=== PATIENT | male | born 1965 | race Caucasian/White ===

== ENCOUNTER 2017-12-26 15:34 | Inpatient (IN) ==
--- NOTE | 2017-12-26 15:56 | ED ---
HPI General Chief Complaint: Stroke Alert Stated Complaint: Stroke Alert Time Seen by Provider: 12/26/17 15:39 Source: patient and EMS Mode of arrival: EMS Limitations: altered mental status (mild confusion) History of Present Illness Onset (ago): hour(s) (4-6) Timing confirmed by: other (mother found him like this. unknown onset.) Location: Reports right arm History of same: Yes Quality: Reports weak Relieving factors: none Exacerbating factors: none Context: Reports other (unknown) On Anticoagulants: No Associated symptoms: Reports denies other symptoms Treatments Prior to Arrival: Reports none Related Data Home Medications Medication Instructions Recorded Confirmed amlodipine 10 mg PO DAILY 12/26/17 12/26/17 hydrochlorothiazide 12.5 mg PO DAILY 12/26/17 12/26/17 lovastatin 20 mg PO DAILY 12/26/17 12/26/17 metformin 500 mg PO BID 12/26/17 12/26/17 metoprolol tartrate 50 mg PO BID 12/26/17 12/26/17 Allergies Allergy/AdvReac Type Severity Reaction Status Date / Time No Known Allergies Allergy Uncoded 04/20/14 16:30 Review of Systems ROS: all other systems reviewed are negative [facility] Medical History Medical History Hypercholesteremia (Acute) Cardiomyopathy (Chronic) Diabetes (Chronic) Hypertension (Chronic) Left basal ganglia embolic stroke (Resolved) Social History Social History Substance History: No History of Abuse Second Hand Smoke Exposure: No Smoking Status: Never smoker How Often Do You Have a Drink Containing Alcohol: Never Recent Travel in [facility] within the Last 8 Weeks: No Recent Out of Country Travel within the Last 8 Weeks: No Exam Const General: cooperative, healthy appearing and comfortable Orientation: alert, awake and oriented x3 HENMT Head: normal to inspection, normocephalic and atraumatic Eyes Alignment and Position: alignment normal Conjunctivae: conjunctivae normal Sclera: sclerae normal EOM: EOM intact bilaterally Neck Neck: normal visual inspection, no lymphadenopathy and no meningeal signs Chest Chest: normal inspection of the chest Resp Effort & Inspection: normal respiratory effort and able to speak in complete sentences Auscultation: clear to auscultation bilaterally Cardio Rate: regular rate Rhythm: regular rhythm Back/Spine/Pelvis Cervical Spine: cervical ROM normal Thoracic/Lumbar Spine: thoraco-lumbar ROM normal Skin General: no rashes or lesions noted, turgor normal and dry skin Neuro General: alert, awake, oriented x3 and CN's II-XI intact bilaterally Speech: abnormal speech (Seems to be having a little bit of trouble finding his words) Motor: strength abnormal (RUE) Extrem General: normal to inspection and full ROM Psych Appearance: grossly normal Mental Status: mental status grossly normal Speech and Movement: speech and movement normal Mood: congruent mood Affect: normal affect Attitude: cooperative Thought Process: normal Thought Content: normal Judgment: judgment good Course Consultations Consultation #1: Dr. Corrales, neurologist Time: 16:02 Consultation #2: Dr. Lechuga, radiologist Time: 16:09 Consultation #3: Dr. Rivers will admit Time: 16:58 Initial Documented Vital Signs Pulse Rate 114 H 12/26/17 15:40 Pulse Oximetry 93 L 12/26/17 15:40 Last Documented Vital Signs Temperature 98.1 F 12/26/17 16:12 Pulse Rate 116 H 12/26/17 16:12 Respiratory Rate 18 12/26/17 16:12 Blood Pressure 210/103 H 12/26/17 16:12 Pulse Oximetry 94 L 12/26/17 16:12 Critical Care Time Critical Care Time: Yes Total Critical Care Time: 40 Attestation: Time to perform other separately billable procedures was not included in the critical care time. My time did not include minutes spent treating any other patients simultaneously or on activities that did not directly contribute to the patient's treatment. The services I provided to this patient were to treat and/or prevent clinically significant deterioration due to acute neurological event I provided critical care services requiring my management, as noted below: Chart data review, documentation time, medication orders and management, vital sign assessments/reviewing monitor data, ordering and reviewing lab tests, ordering and interpreting/reviewing x-rays and diagnostic studies, care of the patient and discussion of the patient with the admitting physicians NIH Stroke Scale NIH Stroke Scale Level of Consciousness: 0-Alert Orientation Questions: 0-Answers both correct Responds to Commands: 0-Both tasks correct Gaze Eye Movement: 0-Horizontal movement WNL Visual Munoz: 0-No visual field defect Facial Movement: 0-Normal Motor Functions Arm LEFT: 0-No drift Motor Functions Arm RIGHT: 3-No effort against gravity Motor Functions Leg LEFT: 0-No drift Motor Functions Leg RIGHT: 0-No drift Limb Ataxia: 0-No ataxia Sensory Loss: 0-No sensory loss Best Language: 0-Normal Articulation: 1-Mild dysarthia Extinction or Inattention Sensory: 0-Absent Total: 4 Medical Decision Making MDM Narrative Medical decision making narrative: This patient presented to us as a stroke alert. Onset of symptoms was sometime between 9:30 AM and 11:30 AM. EVAC reports that his mother found him like this. Since the exact onset of his symptoms is unknown and since it has been at least 4 hours, this patient does not qualify for TPA. We did initiate a stroke alert for the purpose of rapid radiographic evaluation. The patient is now ready for admission. Medical Screen Exam Complete: Yes Emergency Medical Condition: Yes Differential Diagnosis Differential Diagnosis: Differential diagnosis includes but is not limited to TIA, CVA, brain tumor, migraine, anxiety Medical Records Medical records reviewed: Yes I reviewed the patient's medical records. Please see PMH for review of records. Old records were used to populate his PMH. Lab Data Lab results reviewed: Yes I reviewed the patient's lab results. Lab Results 12/26/17 12/26/17 12/26/17 Range/Units 15:41 15:45 15:45 POC Hgb (Calc) 15.6 (13.0-17.0) g/dL POC Hct 46.0 (39-51.0) % POC Sodium 138 (137-144) mmol/L POC Potassium 3.0 L (3.6-5.0) mmol/L POC Chloride 97 L (102-111) mmol/L POC BUN 11 (5-21) mg/dL POC Creatinine 0.9 (0.6-1.3) mg/dL POC Glucose 168 H 164 H (68-110) mg/dl Blood Type A Positive Antibody Screen Negative Imaging Data Radiologist's impression: Head CT 12/26/17 15:40 CONCLUSION: 1. No acute intracranial abnormality. Report was called by [Dr. Lechuga to at 1608 hours ] Head CTA 12/26/17 15:40 CONCLUSION: 1. Atherosclerotic disease without hemodynamically significant stenosis or filling defect to suggest thrombus. Results were called to Dr. Collier by Dr. Lechuga at 1630 hours ECG Data EKG Prior to Arrival: No Attestation: I personally reviewed and interpreted this ECG as follows: (EKG shows a sinus rhythm with a rate of 115. He has a right bundle branch block. Nonspecific STT wave changes.) Discharge Plan Discharge Disposition Patient Disposition: 30 Still Patient Discharge Details Diagnosis: Transient cerebral ischemia, Hypertension Physicians Team ED Provider: Payal Collier Primary Care Provider: Primary Care Elisa Carver Other Providers: Princess Corrales Rxs /Orders / Referrals /Forms Prescriptions: No Action metformin 500 mg Tablet 500 mg PO BID RF: 0 amlodipine 10 mg Tablet 10 mg PO DAILY RF: 0 metoprolol tartrate 50 mg Tablet 50 mg PO BID RF: 0 hydrochlorothiazide 12.5 mg Capsule 12.5 mg PO DAILY RF: 0 lovastatin 20 mg Tablet 20 mg PO DAILY RF: 0 Discharge Interventions Interventions: Vital Signs Last Done: 12/26/17 16:12 Status ED Status: Pending Admission
--- NOTE | 2017-12-26 16:11 | CT ---
EXAM DATE: 12/26/2017 3:48 PM EDT AGE/SEX: 52 years / Male INDICATIONS: Stroke alert. Right arm flaccid, right facial droop, confusion. CLINICAL DATA: This is the patient's initial encounter. Patient reports that signs and symptoms have been present for 1 day and indicates a pain score of Nonresponsive. MEDICAL/SURGICAL HISTORY: Non-responsive. Non-responsive. RADIATION DOSE: 49.17 CTDI (mGy) COMPARISON: No prior exams available for comparison. TECHNIQUE: CT of the head without contrast. Using automated exposure control and adjustment of the mA and/or kV according to patient size, radiation dose was kept as low as reasonably achievable to ob tain optimal diagnostic quality images. DICOM format image data is available electronically for revi ew and comparison. FINDINGS: Cerebrum: Small chronic lacunar infarction involving the left basal ganglia. The ventricles are norm al for age. No evidence of midline shift, mass lesion, hemorrhage or acute infarction. No extraaxia l fluid collections are seen. Posterior Fossa: The cerebellum and brainstem are intact. The 4th ventricle is midline. The cerebe llopontine angle is unremarkable. Extracranial: The visualized portion of the orbits is intact. Skull: The calvaria is intact. No evidence of skull fracture. CONCLUSION: 1. No acute intracranial abnormality. Report was called by [Dr. Lechuga to at 1608 hours ] Electronically signed by: Clay Lechuga MD 12/26/2017 4:09 PM EDT
[2017-12-26] MEDS ORDERED: Sod Chloride 0.9% Inj 1,000 ML IV.SIG SCH (16:15)
--- NOTE | 2017-12-26 16:34 | CT ---
EXAM DATE: 12/26/2017 3:48 PM EDT AGE/SEX: 52 years / Male INDICATIONS: Stroke alert; right arm weakness, right facial droop, confusion. CLINICAL DATA: This is the patient's initial encounter. Patient reports that signs and symptoms have been present for 1 day and indicates a pain score of Nonresponsive. MEDICAL/SURGICAL HISTORY: None. None. RADIATION DOSE: 28.78 CTDI (mGy) ; Combined studies COMPARISON: [facility] – [place] HEAD W/O CONTRAST, 12/26/2017. . TECHNIQUE: Volumetric scanning was performed using a multi-row detector CT scanner during bolus infu renetta of 84 ml Omnipaque 350 (iohexol) nonionic water-soluble contrast as a cumulative dose for multi ple exams. The data was post processed with a variety of visualization algorithms including full vo lume maximum intensity projection, multi-planar sliding thin slab reformation, curved planar reformat ion, and surface rendering techniques. Using automated exposure control and adjustment of the mA and /or kV according to patient size, radiation dose was kept as low as reasonably achievable to obtain o ptimal diagnostic quality images. DICOM format image data is available electronically for review and comparison. FINDINGS: There is excellent visualization of the major intracranial arteries out to the second-order branch ve ssels. Scattered atherosclerotic disease throughout the intracranial vessels most abundant within the intracavernous ICAs. No significant stenosis observed. No filling defects. Left vertebral artery is dominant. There is no evidence for aneurysm, vessel truncation or stenosis, and no evidence for vascu lar malformation. CONCLUSION: 1. Atherosclerotic disease without hemodynamically significant stenosis or filling defect to suggest thrombus. Results were called to Dr. Collier by Dr. Lechuga at 1630 hours Electronically signed by: Clay Lechuga MD 12/26/2017 4:33 PM EDT
--- NOTE | 2017-12-26 16:59 | CT ---
EXAM DATE: 12/26/2017 3:48 PM EDT AGE/SEX: 52 years / Male INDICATIONS: Stroke alert; right arm weakness, right facial droop, confusion. CLINICAL DATA: This is the patient's initial encounter. Patient reports that signs and symptoms have been present for 1 day and indicates a pain score of Nonresponsive. MEDICAL/SURGICAL HISTORY: Non-responsive. Non-responsive. RADIATION DOSE: 28.78 CTDI (mGy) ; Combined studies COMPARISON: No prior exams available for comparison. TECHNIQUE: Volumetric scanning was performed using a multirow detector CT scanner during bolus infus ion of 84 ml Omnipaque 350 (iohexol) nonionic water-soluble contrast as a cumulative dose for multip le exams. The data was postprocessed with a variety of visualization algorithms including full-volu me maximum intensity projection, multiplanar sliding thin-slab reformation, curved-planar reformation , and surface-rendering techniques. Using automated exposure control and adjustment of the mA and/or kV according to patient size, radiation dose was kept as low as reasonably achievable to obtain opti mal diagnostic quality images. DICOM format image data is available electronically for review and co mparison. FINDINGS: Aortic Arch: There is a three-vessel origin of the great vessels from the aorta. No evidence of ost ial narrowing Right Carotid: The common carotid artery is intact. The carotid bulb has a normal configuration wit hout ulceration or narrowing. The internal carotid artery lumen is smooth without stenosis. The ext ernal carotid artery is intact. Left Carotid: The common carotid artery is intact. The carotid bulb has a normal configuration with out ulceration or narrowing. The internal carotid artery lumen is smooth without stenosis. The exte rnal carotid artery is intact. Vertebrals: The left vertebral artery is dominant. No stenotic lesions are seen. Percent stenosis is calculated using the diameter of the stenotic region over the diameter of the nor mal distal internal carotid artery. CONCLUSION: 1. Patent carotid arteries bilaterally. 2. The left vertebral artery is dominant. Electronically signed by: Clay Lechuga MD 12/26/2017 4:58 PM EDT
--- NOTE | 2017-12-26 17:00 | XR ---
EXAM DATE: 12/26/2017 3:40 PM EDT AGE/SEX: 52 years / Male INDICATIONS: Stroke alert. CLINICAL DATA: This is the patient's initial encounter. Patient reports that signs and symptoms have been present for 1 day and indicates a pain score of Nonresponsive. MEDICAL/SURGICAL HISTORY: Non-responsive. Non-responsive. COMPARISON: [facility] – [place], CHEST SINGLE AP, 04/11/2013. . FINDINGS: A single AP view of the chest demonstrates the lungs to be symmetrically aerated without evidence of mass, infiltrate or effusion. Mild cardiomegaly without pulmonary vascular engorgement. Osseous struc tures are intact. CONCLUSION: Mild cardiomegaly. Clear lungs. Electronically signed by: Clay Lechuga MD 12/26/2017 4:58 PM EDT
[2017-12-26] MEDS: Sod Chloride 0.9% Inj 1,000 ML IV.CONT SCH (17:56)
[2017-12-26] MEDS ORDERED: Acetaminophen 325 MG Tablet PO PRN (18:01)
--- NOTE | 2017-12-26 18:09 | P.HPFP ---
History of Present Illness Primary Care Physician: No Primary Care Physician Chief Complaint: RUE weakness History of Present Illness: 52-year-old male with past medical history of diabetes, hypertension, hypercholesteremia, cardiomyopathy and prior stroke, presented to the emergency department hours after feeling that his right arm was heavy as well as his right leg. Patient states this morning was feeling well, around 9 AM was running some errands when he suddenly started feeling weakness on his right upper extremity and his right lower extremity. He returned home and was found by his mother around 11 AM. Mother in the room providing additional history, she does state she found her son on a recliner, unable to move his right arm, unable to walk. She also stated he was having hard time finding words and expressing himself. Patient has a history of a stroke on the same side in the past, he was placed on aspirin in the past however patient stopped taking aspirin. Patient complains of a headache, puffy and red eyes, inability to feel sensation in his right side. He denies chest pain or shortness of breath, he denies nausea or vomiting. PMH: Diabetes, cardiomyopathy, hypercholesteremia, hypertension, left basal ganglia embolic stroke Surgical history: None Social history: Lives with parents, chews 1 can of tobacco a day, had recently decreased from 3 cans of tobacco since age 16. Denies recreational drug use, occasional drinking but denies problems with alcohol. Allergies: NKA Medications: Amlodipine, hydrochlorothiazide, lovastatin, metformin, metoprolol tartrate - Diagnosis (1) Stroke (2) Hypertension (3) Hyperlipidemia (4) Diabetes mellitus (5) Hx of completed stroke (6) Obesities, morbid Inpatient Certification: I certify that the inpatient services were ordered in accordance with Medicare regulations governing the order. This includes certification that hospital inpatient services are reasonable and necessary and in the case of services not specified as inpatient-only under 42 CFR 419.22(n), that they are appropriately provided as inpatient services in accordance to with the 2-midnight benchmark under 43 CFR 412.3(e) Estimated Total Length of Stay (Days): 2 Plans for Post Hospital Care: Not yet determined Review of Systems Constitutional: Reports headache(s), Reports weakness, Denies fever(s) Eyes: Reports other (Puffy "red eyes"), Denies blurry vision, Denies change in vision, Denies double vision Ears, Nose, Mouth, and Throat: Denies dizziness Cardiovascular: Denies chest pain, Denies fainting, Denies shortness of breath Gastrointestinal: Denies nausea, Denies vomiting Musculoskeletal: Reports abnormal walking Neurologic: Reports abnormal speech, Reports abnormal walking, Reports headache( s), Reports sensory deficit, Reports unsteadiness, Reports weakness PMFSH - History History Provided By: Patient, Family Member - Medical History Medical History: Medical History (Last Reviewed 12/26/17 @ 23:47 by Michelle Espino MD, R1 ) Hypercholesteremia Cardiomyopathy Diabetes Hypertension Left basal ganglia embolic stroke - Tobacco History Second Hand Smoke Exposure: No Tobacco Use In Past 30 Days: No Smoking Status: Current every day smoker Tobacco Type: Smokeless Tobacco - Alcohol History How Often Do You Have a Drink Containing Alcohol: Never - Substance Use History Substance History: No History of Abuse - Travel History Recent Travel in the [place] Within the Last 8 Weeks: No Recent Travel Out of the Country Within the Last 8 Weeks: No - Immunization History Tetanus Immunization: >5 Years Medications and Allergies Active Medications: Active Medications Acetaminophen (Tylenol) 650 mg PO Q4H PRN PRN Reason: Temp > 100.4 Sodium Chloride (Ns Inj) 1,000 mls @ 70 mls/hr IV.CONT .[id number] [facility] Last Admin: 12/26/17 17:56 Dose: 70 mls/hr Sodium Chloride (Ns Inj) 1,000 mls @ 0 mls/hr IV.SIG BOLUS [facility] Ondansetron HCl (Zofran Inj) 4 mg IV.PUSH Q6H PRN PRN Reason: NAUSEA OR VOMITING Senna/Docusate Sodium (April-Colace) 1 tab PO BID [facility] Allergies Allergy/AdvReac Type Severity Reaction Status Date / Time No Known Allergies Allergy Uncoded 04/20/14 16:30 Home Medications Medication Instructions Recorded Confirmed Type amlodipine 10 mg PO DAILY 12/26/17 12/26/17 History hydrochlorothiazide 12.5 mg PO DAILY 12/26/17 12/26/17 History lovastatin 20 mg PO DAILY 12/26/17 12/26/17 History metformin 500 mg PO BID 12/26/17 12/26/17 History metoprolol tartrate 50 mg PO BID 12/26/17 12/26/17 History Exam Vital signs: Vital Signs 12/26/17 15:40 12/26/17 16:06 12/26/17 16:12 Temperature 98.1 F 98.1 F Pulse Rate 114 H 114 H 116 H Respiratory Rate 18 18 Blood Pressure 166/86 H 210/103 H Pulse Oximetry 95 94 L 94 L 12/26/17 17:30 Temperature Pulse Rate 124 H Respiratory Rate 18 Blood Pressure 210/91 H Pulse Oximetry Intake & Output 12/25/17 12/26/17 12/26/17 18:59 06:59 18:59 Weight 156 kg Narrative: General: Obese male, in no obvious distress during examination. HEENT: Normocephalic, atraumatic. injected conjunctiva. Gross hearing intact bilaterally. Neuro: Awake, alert and oriented to person, place, not oriented to time, thinks is 2015. Speech is somewhat clear, mumbling at times. Cranial nerve examination: pupils to be equal, round, and reactive to light. Extra-ocular movements are intact with normal convergence. Facial motor and sensory function are normal and symmetrical. Gross hearing is intact, bilaterally. Sensory examination diminished to light touch in both the upper and lower R extremities. Extremities: No obvious deformities. No clubbing. No peripheral edema. Strength 2/5 in RUE, 3/5 RLE. Lungs: Clear to auscultate bilaterally, nonlabored breathing on room air, no wheezing,rhonchi or crackles. No accessory muscle use. Heart: Regular rate and rhythm Abdomen: Soft, nontender. Positive bowel sounds Results - Labs Result diagrams: 12/26/17 19:16 12/26/17 15:45 Abnormal lab results 12/26/17 12/26/17 Range/Units 15:41 15:45 POC Potassium 3.0 L (3.6-5.0) mmol/L POC Chloride 97 L (102-111) mmol/L POC Glucose 168 H 164 H (68-110) mg/dl - Imaging Impressions Chest X-Ray 12/26/17 15:40 CONCLUSION: Mild cardiomegaly. Clear lungs. Head CT 12/26/17 15:40 CONCLUSION: 1. No acute intracranial abnormality. Report was called by [Dr. Lechuga to at 1608 hours ] Head CTA 12/26/17 15:40 CONCLUSION: 1. Atherosclerotic disease without hemodynamically significant stenosis or filling defect to suggest thrombus. Results were called to Dr. Collier by Dr. Lechuga at 1630 hours Neck CTA 12/26/17 15:40 CONCLUSION: 1. Patent carotid arteries bilaterally. 2. The left vertebral artery is dominant. Caprini VTE Risk Assessment Caprini VTE Risk Assessment: Moderate/High Risk (score >= 2) Caprini Risk Assessment Model: Point Value = 1 Point Value = 2 Point Value = 3 Point Value = 5 Age 41-60 Minor surgery BMI > 25 kg/m2 Swollen legs Varicose veins or History of unexplained or recurrent spontaneous Oral contraceptives or hormone replacement Sepsis (< 1 month) Serious lung disease, including pneumonia (< 1 month) Abnormal pulmonary function Acute myocardial infarction Congestive heart failure (< 1 month) History of inflammatory bowel disease Medical patient at bed rest Age 61-74 Arthroscopic surgery Major open surgery (> 45 min) Laparoscopic surgery (> 45 min) Malignancy Confined to bed (> 72 hours) Immobilizing plaster cast Central venous access Age >= 75 History of VTE Family history of VTE Factor V Leiden Prothrombin [id number] Lupus anticoagulant Anticardiolipin antibodies Elevated serum homocysteine Heparin-induced thrombocytopenia Other congenital or acquired thrombophilia Stroke (< 1 month) Elective arthroplasty Hip, pelvis, or leg fracture Acute spinal cord injury (< 1 month) Prophylaxis Regimen: Total Risk Factor Score Risk Level Prophylaxis Regimen 0-1 Low Early ambulation 2 Moderate Order ONE of the following: *Sequential Compression Device (SCD) *Heparin 5000 units SQ BID 3-4 Higher Order ONE of the following medications: *Heparin 5000 units SQ TID *Enoxaparin/Lovenox 40 mg SQ daily (WT < 150 kg, CrCl > 30 mL/min) *Enoxaparin/Lovenox 30 mg SQ daily (WT < 150 kg, CrCl > 10-29 mL/min) *Enoxaparin/Lovenox 30 mg SQ BID (WT < 150 kg, CrCl > 30 mL/min) AND/OR *Sequential Compression Device (SCD) 5 or more Highest Order ONE of the following medications: *Heparin 5000 units SQ TID (Preferred with Epidurals) *Enoxaparin/Lovenox 40 mg SQ daily (WT < 150 kg, CrCl > 30 mL/min) *Enoxaparin/Lovenox 30 mg SQ daily (WT < 150 kg, CrCl > 10-29 mL/min) *Enoxaparin/Lovenox 30 mg SQ BID (WT < 150 kg, CrCl > 30 mL/min) AND *Sequential Compression Device (SCD) Assessment and Plan - Assessment (1) Stroke Code(s): I63.9 - Cerebral infarction, unspecified Status: Acute (2) Hypertension Code(s): I10 - Essential (primary) hypertension Status: Chronic (3) Hyperlipidemia Code(s): E78.5 - Hyperlipidemia, unspecified Status: Chronic (4) Diabetes mellitus Code(s): E11.9 - Type 2 diabetes mellitus without complications Status: Acute (5) Hx of completed stroke Code(s): Z86.73 - Personal history of transient ischemic attack (TIA), and cerebral infarction without residual deficits Status: Chronic (6) Obesities, morbid Code(s): E66.01 - Morbid (severe) obesity due to excess calories Status: Acute - Assessment and Plan 52-year-old male presenting to the emergency department 6 hours after feeling his right leg and right arm feel heavy, as well as right lower extremity weakness and inability to walk. CT head with not acute bleed, CTA head showing atherosclerotic disease without stenosis, and CTA neck with patent carotid arteries bilaterally. Stroke - MRI of the brain w/o contrast - Aspirin 325mg q day plus Lovenox 40mg - Consult Neurology for evaluation - Normal saline at 70ml/ hr - Neurochecks every 4 - PT/OT/ST eval. - Labs: lipid profile, hemoglobin A1c, CBC, CMP, Coagulation panel - head of the bed flat except for eating, elevate 30 degrees Hypertension Permissive HTN Vasotec PRN for systolic blood pressure >220 mmHg or diastolic blood pressure > 120 mmHg Continue home medications" Amlodipine 10mg qday, HCTZ 12.5mg daily, metoprolol tartrate 50mg BID Hyperlipidemia Lipid panel Continue Lovastatin 20mg po daily Will consider increasing to 40mg PO daily Diabetes HbA1C pending Low insulin SS per stroke protocol Hold Metformin 500mg PO BID Obesity BMI 43 FEN/DVT Passed bedside swallow evaluation Cardiac diet NS at 70ml/hr DVT prophylaxis: Lovenox 40mg SQ , plus SCDs (1) Stroke Qualifiers: Laterality of affected vessel: left (2) Hypertension Qualifiers: Hypertension type: essential hypertension Qualified Code(s): I10 - Essential (primary) hypertension (4) Diabetes mellitus Qualifiers: Diabetes mellitus type: type 2 Diabetes mellitus complication status: with unspecified complications
[2017-12-26] MEDS ORDERED: Dextrose 50% in Water 50 ML Vial IV.PUSH PRN (18:29)
[2017-12-26 18:53] LABS: Alanine Aminotransferase 38 U/L (12-78); Albumin 3.1 g/dL (3.4-5.0); Anion Gap 13 meq/L (5-15); Aspartate Aminotransferase 26 U/L (15-37); Blood Urea Nitrogen 12 mg/dL (7-18); Calcium 8.9 mg/dL (8.5-10.1); Chloride 99 meq/L (98-107); Glomerular Filtration Rate 64 mL/min (>89); Glucose,Random 160 mg/dL (74-106); Sodium 135 meq/L (136-145)
[2017-12-26 18:57] LABS: Alkaline Phosphatase 86 U/L (45-117); Total Protein 8.1 g/dL (6.4-8.2)
[2017-12-26 18:58] LABS: Creatine Kinase 73 U/L (39-308)
[2017-12-26 19:25] LABS: Baso # (Auto) 0.1 th/mm3 (0.0-0.2); Baso % (Auto) 0.8 % (0.0-2.0); Eos % (Auto) 0.1 % (0.0-4.0); Hematocrit 42.6 % (39.0-51.0); Hemoglobin 15.1 gm/dL (13.0-17.0); Lymph # (Auto) 1.6 th/mm3 (1.0-4.8); Lymph % (Auto) 11.3 % (9.0-44.0); Mean Corpuscular HGB Conc 35.5 % (32.0-36.0); Mean Corpuscular Hemoglobin 29.8 pg (27.0-34.0); Mean Corpuscular Volume 83.9 fL (80.0-100.0); Mean Platelet Volume 8.4 fL (7.0-11.0); Mono # (Auto) 2.1 th/mm3 (0.0-0.9); Mono % (Auto) 14.9 % (0.0-8.0); Neut # (Auto) 10.1 th/mm3 (1.8-7.7); Neut % (Auto) 72.9 % (16.0-70.0); Platelet Count 223 th/mm3 (150-450); Red Blood Count 5.08 mil/mm3 (4.50-5.90); Red Cell Distribution Width 13.5 % (11.6-17.2); White Blood Count 13.9 th/mm3 (4.0-11.0)
[2017-12-26 19:54] LABS: Activated Partial Thrombo Time 27.8 sec (24.3-30.1); INR 1.1 Ratio
[2017-12-26] MEDS ORDERED: Enoxaparin Inj 40 MG/0.4 ML Syringe SQ SCH (20:00)
[2017-12-26 20:47] LABS: Chol/HDL Ratio 3.67 Ratio; HDL Cholesterol 40.3 mg/dL (40.0-60.0)
--- NOTE | 2017-12-26 20:54 | MR ---
EXAM DATE: 12/26/2017 7:48 PM EDT AGE/SEX: 52 years / Male INDICATIONS: Stroke. Right sided weakness for one day. CLINICAL DATA: This is the patient's initial encounter. Patient reports that signs and symptoms have been present for 1 day and indicates a pain score of 7/10. MEDICAL/SURGICAL HISTORY: Hypertension. Diabetes mellitus type II. None. [place] [facility] [place] W 3D, 12/26/2017. [facility] [place]/O [place]AST, 12/26/2017. . TECHNIQUE: Multiplanar, multisequence examination of the brain was performed without contrast. FINDINGS: There is abnormal area of diffusion manifested as bright signal on diffusion imaging and restriction in diffusion capacity involving the left posterior parietal lobe characteristic of acute infarction e xtending to the periventricular region. There is no hemorrhage or mass effect. There is sinusitis wit hin the left maxillary sinus chronic in nature. Old lacunar infarction is seen in the left basal gang kay. Slight periventricular white matter changes are seen nonspecific mostly consistent with chronic small vessel ischemic changes. CONCLUSION: Large area of acute infarction left posterior parietal lobe extending into the periventricular region s without hemorrhage or mass effect. Findings were discussed with the patient's nurse Giselle Damian at th e time of this dictation on 12/26/2017 at 8:45 PM. Electronically signed by: Booker Glover MD 12/26/2017 8:53 PM EDT
[2017-12-26] MEDS: Insulin NovoLOG Aspart Correctional Sugar Inj SQ SCH (21:36)
[2017-12-26] MEDS: Senna/Docusate Sodium 8.6/50 MG Tablet PO SCH (21:38)
[2017-12-27 04:34] LABS: Amphetamine Screen,Urine Neg (Neg); Barbiturate Screen,Urine Neg (Neg); Cannabinoid Screen,Urine Neg (Neg); Cocaine Screen,Urine Neg (Neg)
[2017-12-27 04:35] LABS: Opiate Screen,Urine Neg (Neg)
[2017-12-27 04:45] LABS: Bilirubin,Urine Negative (Negative); Clarity,Urine Clear (Clear); Color,Urine Yellow (Yellw/Straw); Glucose,Urine (UA) 50 mg/dL (Negative); Leukocyte Esterase,Urine Negative (Negative); Mucus,Urine Few /lpf (Occasional); Nitrite,Urine Negative (Negative); Specific Gravity,Urine 1.017 (1.002-1.035)
[2017-12-27] MEDS: Sod Chloride 0.9% Inj 1,000 ML IV.CONT SCH ×2 (05:11→21:04)
[2017-12-27 06:28] LABS: Baso # (Auto) 0.1 th/mm3 (0.0-0.2); Baso % (Auto) 0.5 % (0.0-2.0); Eos % (Auto) 0.2 % (0.0-4.0); Hematocrit 44.8 % (39.0-51.0); Hemoglobin 15.8 gm/dL (13.0-17.0); Lymph # (Auto) 1.4 th/mm3 (1.0-4.8); Lymph % (Auto) 10.2 % (9.0-44.0); Mean Corpuscular HGB Conc 35.2 % (32.0-36.0); Mean Corpuscular Hemoglobin 29.9 pg (27.0-34.0); Mean Platelet Volume 8.9 fL (7.0-11.0); Mono # (Auto) 2.5 th/mm3 (0.0-0.9); Mono % (Auto) 18.1 % (0.0-8.0); Platelet Count 208 th/mm3 (150-450); Red Blood Count 5.27 mil/mm3 (4.50-5.90); Red Cell Distribution Width 14.2 % (11.6-17.2); White Blood Count 14.1 th/mm3 (4.0-11.0)
[2017-12-27 06:47] LABS: Alanine Aminotransferase 32 U/L (12-78); Albumin 2.8 g/dL (3.4-5.0); Anion Gap 12 meq/L (5-15); Aspartate Aminotransferase 24 U/L (15-37); Blood Urea Nitrogen 10 mg/dL (7-18); Calcium 8.4 mg/dL (8.5-10.1); Carbon Dioxide 24.5 meq/L (21.0-32.0); Chloride 103 meq/L (98-107); Cholesterol 145 mg/dL (120-200); Glomerular Filtration Rate Greater Than 89 mL/min (>89); Glucose,Random 155 mg/dL (74-106); Potassium 3.2 meq/L (3.5-5.1); Sodium 139 meq/L (136-145); Triglycerides 133 mg/dL (42-150)
[2017-12-27 06:49] LABS: Alkaline Phosphatase 89 U/L (45-117); Chol/HDL Ratio 4.76 Ratio; HDL Cholesterol 30.4 mg/dL (40.0-60.0); LDL Cholesterol,Calculated 88 mg/dL (0-99); Total Protein 7.6 g/dL (6.4-8.2)
--- NOTE | 2017-12-27 08:09 | P.CONCA ---
History of Present Illness Service: cardiology Consult date: 12/27/17 Reason for Consult: CVA Primary Care Provider: No Primary Care Physician Chief Complaint: RUE weakness History of Present Illness: 52 yo obese male tobacco user with no HTN, HLD, DMII and reported history of prior stroke and cardiomyopathy who presents with sudden onset unilateral leg and arm weakness and dysarthria. Patient lives at home and provides limited history at time of exam. This morning he feel better having regained strength to affected limbs but still doesn't "feel right". He denies chest pain, sob, edema or palpitations. His BP was rather high in the ED; SBP as high as 210, now improving. Labs reveal hypokalemia, troponin x 2 negative. CTA shows atherosclerosis with patent carotid arteries. Head imaging does not reveal any acute abnormality. Review of Systems All other systems reviewed negative except as stated in [facility] - History History Provided By: Patient, Family Member - Medical History Medical History: Medical History (Last Reviewed 12/27/17 @ 08:52 by Bailey Patel, [employer]) Hypercholesteremia Cardiomyopathy Diabetes Hypertension Left basal ganglia embolic stroke - Tobacco History Second Hand Smoke Exposure: No Tobacco Use In Past 30 Days: No Smoking Status: Current every day smoker Tobacco Type: Smokeless Tobacco - Alcohol History How Often Do You Have a Drink Containing Alcohol: Never - Substance Use History Substance History: No History of Abuse - Travel History Recent Travel in the [place] Within the Last 8 Weeks: No Recent Travel Out of the Country Within the Last 8 Weeks: No - Immunization History Tetanus Immunization: >5 Years Medications and Allergies Allergies Allergy/AdvReac Type Severity Reaction Status Date / Time No Known Allergies Allergy Uncoded 04/20/14 16:30 Home Medications Medication Instructions Recorded Confirmed Type amlodipine 10 mg PO DAILY 12/26/17 12/26/17 History hydrochlorothiazide 12.5 mg PO DAILY 12/26/17 12/26/17 History lovastatin 20 mg PO DAILY 12/26/17 12/26/17 History metformin 500 mg PO BID 12/26/17 12/26/17 History metoprolol tartrate 50 mg PO BID 12/26/17 12/26/17 History Active Medications: Active Medications Acetaminophen (Tylenol) 650 mg PO Q4H PRN PRN Reason: Temp > 100.4 Amlodipine Besylate (Norvasc) 10 mg PO DAILY [facility] Aspirin (Aspirin) 325 mg PO DAILY [facility] Dextrose (D50w Vial) 50 ml IV.PUSH UNSCH PRN PRN Reason: per Hypoglycemic Protocol Enalaprilat (Vasotec Inj) 1.25 mg IV.PUSH Q6H PRN PRN Reason: BLOOD PRESSURE MANAGEMENT Enoxaparin Sodium (Lovenox Inj) 40 mg SQ Q24H [facility] Last Admin: 12/26/17 21:38 Dose: 40 mg Glucagon (Glucagon Inj) 1 mg OTHER UNSCH PRN PRN Reason: per Hypoglycemic Protocol Hydrochlorothiazide (Microzide) 12.5 mg PO DAILY [facility] Sodium Chloride (Ns Inj) 1,000 mls @ 70 mls/hr IV.CONT .[id number] [facility] Last Admin: 12/27/17 05:11 Dose: Not Given Sodium Chloride (Ns Inj) 1,000 mls @ 0 mls/hr IV.SIG BOLUS [facility] Insulin Aspart (Novolog Insulin Correctional Sugar Inj) 0 unit SQ ACHS [facility]; Protocol Last Admin: 12/26/17 21:36 Dose: Not Given Metoprolol Tartrate (Lopressor) 50 mg PO BID [facility] Ondansetron HCl (Zofran Inj) 4 mg IV.PUSH Q6H PRN PRN Reason: NAUSEA OR VOMITING Pravastatin Sodium (Pravachol) 40 mg PO HS [facility] Last Admin: 12/26/17 21:38 Dose: 40 mg Pravastatin Sodium (Pravachol) 20 mg PO DAILY [facility] Senna/Docusate Sodium (April-Colace) 1 tab PO BID [facility] Last Admin: 12/26/17 21:38 Dose: 1 tab Exam Vital signs: Vital Signs 12/26/17 15:40 12/26/17 16:06 12/26/17 16:12 Temperature 98.1 F 98.1 F Pulse Rate 114 H 114 H 116 H Respiratory Rate 18 18 Blood Pressure 166/86 H 210/103 H Pulse Oximetry 95 94 L 94 L 12/26/17 17:30 12/26/17 18:29 12/26/17 20:00 Temperature 97.8 F 98 F Pulse Rate 124 H 110 H 107 H Respiratory Rate 18 20 20 Blood Pressure 210/91 H 182/100 H 185/115 H Pulse Oximetry 96 96 12/26/17 20:27 12/27/17 00:00 12/27/17 07:22 Temperature 98.3 F Pulse Rate 113 H 121 H Respiratory Rate 20 Blood Pressure 178/93 H Pulse Oximetry 96 92 L Intake & Output 12/26/17 12/27/17 12/27/17 18:59 06:59 18:59 Output Total 600 / 600 Balance -600 / -600 Weight 156 kg 156 kg Output: Urine 600 / 600 Other: Date of Last Bowel Movement 12/26/17 Narrative: GENERAL: obese male SKIN: Warm and dry. HEAD: Normocephalic. EYES: No scleral icterus. No injection or drainage. NECK: Supple, trachea midline. No JVD or lymphadenopathy. CARDIOVASCULAR: tachycardic, regular rhythm without murmurs, gallops, or rubs. RESPIRATORY: Breath sounds equal bilaterally. No accessory muscle use. GASTROINTESTINAL: Abdomen soft, non-tender, nondistended. MUSCULOSKELETAL: No cyanosis, or edema. Results 12/27/17 05:29 12/27/17 05:29 Cardiac Enzymes 12/26/17 12/26/17 12/26/17 Range/Units 15:45 15:45 21:05 AST 26 (15-37) U/L Troponin I Less than 0.02 L Cancelled 0.02 (0.02-0.05) ng/mL 12/27/17 Range/Units 05:29 AST 24 (15-37) U/L Troponin I (0.02-0.05) ng/mL Coagulation 12/26/17 Range/Units 19:16 PT 11.0 (9.8-11.6) sec APTT 27.8 (24.3-30.1) sec Lipids 12/26/17 12/27/17 Range/Units 15:45 05:29 Triglycerides 113 133 (42-150) mg/dL Cholesterol 148 145 (120-200) mg/dL HDL Cholesterol 40.3 30.4 L (40.0-60.0) mg/dL Cholesterol/HDL Ratio 3.67 4.76 Ratio CBC 12/26/17 12/27/17 Range/Units 19:16 05:29 WBC 13.9 H 14.1 H (4.0-11.0) th/mm3 RBC 5.08 5.27 (4.50-5.90) mil/mm3 Hgb 15.1 15.8 (13.0-17.0) gm/dL Hct 42.6 44.8 (39.0-51.0) % Plt Count 223 208 (150-450) th/mm3 Neut # (Auto) 10.1 H 10.0 H (1.8-7.7) th/mm3 Lymph # (Auto) 1.6 1.4 (1.0-4.8) th/mm3 [place] # (Auto) 2.1 H 2.5 H (0.0-0.9) th/mm3 Eos # (Auto) 0.0 0.0 (0.0-0.4) th/mm3 Baso # (Auto) 0.1 0.1 (0.0-0.2) th/mm3 Comprehensive Metabolic Panel 12/26/17 12/27/17 Range/Units 15:45 05:29 Sodium 135 L 139 (136-145) meq/L Potassium 3.0 L 3.2 L (3.5-5.1) meq/L Chloride 99 103 (98-107) meq/L Carbon Dioxide 23.0 24.5 (21.0-32.0) meq/L BUN 12 10 (7-18) mg/dL Creatinine 1.20 0.88 (0.60-1.30) mg/dL Calcium 8.9 8.4 L (8.5-10.1) mg/dL AST 26 24 (15-37) U/L ALT 38 32 (12-78) U/L Alkaline Phosphatase 86 89 (45-117) U/L Total Protein 8.1 7.6 (6.4-8.2) g/dL Albumin 3.1 L 2.8 L (3.4-5.0) g/dL Intake and Output 12/26/17 12/27/17 12/27/17 22:59 06:59 14:59 Output Total 600 / 600 Balance -600 / -600 Output: Urine 600 / 600 Other: Date of Last Bowel Movement 12/26/17 12/26/17 Weight 156 kg 156 kg - Imaging and Cardiology Imaging: Impressions Head MRI 12/26/17 00:00 CONCLUSION: Large area of acute infarction left posterior parietal lobe extending into the periventricular regions without hemorrhage or mass effect. Findings were discussed with the patient's nurse Giselle Damian at the time of this dictation on at 8:45 PM. Chest X-Ray 12/26/17 15:40 CONCLUSION: Mild cardiomegaly. Clear lungs. Head CT 12/26/17 15:40 CONCLUSION: 1. No acute intracranial abnormality. Report was called by [Dr. Lechuga to at 1608 hours ] Head CTA 12/26/17 15:40 CONCLUSION: 1. Atherosclerotic disease without hemodynamically significant stenosis or filling defect to suggest thrombus. Results were called to Dr. Collier by Dr. Lechuga at 1630 hours Neck CTA 12/26/17 15:40 CONCLUSION: 1. Patent carotid arteries bilaterally. 2. The left vertebral artery is dominant. Assessment and Plan - Assessment (1) Hypertension Code(s): I10 - Essential (primary) hypertension Status: Chronic (2) Stroke Code(s): I63.9 - Cerebral infarction, unspecified Status: Acute - Plan 52 yo obese male tobacco user with no HTN, HLD, DMII and reported history of prior stroke and cardiomyopathy who presents with sudden onset unilateral leg and arm weakness and dysarthria. Patient lives at home and provides limited history at time of exam. This morning he feel better having regained strength to affected limbs but still doesn't "feel right". He denies chest pain, sob, edema or palpitations. His BP was rather high in the ED; SBP as high as 210, now improving. Labs reveal hypokalemia. CTA shows atherosclerosis with patent carotid arteries. Head imaging does not reveal any acute abnormality. CVA- stroke-like symptoms have improved. evaluate with 2D echo reported reoccurrence of symptoms and noncompliance with asa; consider WINIFRED? cont asa 325mg, lovenox, statin HTN urgency- improving with current medical regimen. sinus tachycardia - Attending Attestation recurrent CVA - prior event RLE weakness. Now with left sided weakness. MRI - Large area of acute infarction left posterior parietal lobe extending into the periventricular regions without hemorrhage or mass effect suspect cardioembolic event telemetry monitoring WINIFRED friday. NPO p [place] friday if WINIFRED negative, probable loop recorder medical mgt per neurology (1) Hypertension Qualifiers: Hypertension type: essential hypertension Qualified Code(s): I10 - Essential (primary) hypertension (2) Stroke Qualifiers: Laterality of affected vessel: left
[2017-12-27] MEDS: amLODIPine 10 MG Tablet PO SCH (09:14)
[2017-12-27] MEDS: Senna/Docusate Sodium 8.6/50 MG Tablet PO SCH ×2 (09:14→21:20)
[2017-12-27] MEDS: Aspirin 325 MG Tablet PO SCH (09:15)
[2017-12-27] MEDS: Metoprolol Tartrate 50 MG Tablet PO SCH ×2 (09:15→21:20)
[2017-12-27] MEDS: Insulin NovoLOG Aspart Correctional Sugar Inj SQ SCH ×4 (09:22→21:20)
--- NOTE | 2017-12-27 12:04 | P.HPFP ---
History of Present Illness Primary Care Physician: No Primary Care Physician Chief Complaint: RUE weakness History of Present Illness: 52-year-old male seen and examined during rounds with resident physicians this morning. He is sitting up in bed and eating breakfast upon arrival with no complication. He denies any symptoms at this time, stating that he has "some weakness" in his right arm but it is mild. He denies any chest pain or palpitations. He denies any headache or vision changes. He denies any difficulty talking or swallowing. He denies any peripheral pain. However, further discussion with him shows that he is unable to move his right arm and he has some weakness of his right leg. When questioned further, he does state that he has some paresthesias in his right upper extremity and right lower extremity as well. He seems somewhat confused, stating that it is 2016 and does not know who the president is. In summary, this is a 52-year-old male who presented to [place] with chief complaint of right arm heaviness and difficulty with walking. On the day prior to presentation, he states that he developed heaviness and weakness of the right upper and lower extremity around 9 AM. His mother found him around 11 AM in a recliner and he was unable to move his right side and so [facility] was called for suspected stroke. He has a history of a stroke affecting his right side in the past and was placed on aspirin therapy, however he states that he has not been taking the aspirin for approximately 1 year. He endorses compliance with his other medications but has not been on an aspirin for some time. - Diagnosis (1) Stroke (2) Hypertension (3) Hyperlipidemia (4) Diabetes mellitus (5) Hx of completed stroke (6) Obesities, morbid Inpatient Certification: I certify that the inpatient services were ordered in accordance with Medicare regulations governing the order. This includes certification that hospital inpatient services are reasonable and necessary and in the case of services not specified as inpatient-only under 42 CFR 419.22(n), that they are appropriately provided as inpatient services in accordance to with the 2-midnight benchmark under 43 CFR 412.3(e) Estimated Total Length of Stay (Days): 2 Plans for Post Hospital Care: Not yet determined PMF - History History Provided By: Patient, Family Member - Medical History Medical History: Medical History (Last Reviewed 12/27/17 @ 11:15 by Bhumika Chris) Hypercholesteremia Cardiomyopathy Diabetes Hypertension Left basal ganglia embolic stroke - Tobacco History Second Hand Smoke Exposure: No Tobacco Use In Past 30 Days: No Smoking Status: Current every day smoker Tobacco Type: Smokeless Tobacco - Alcohol History How Often Do You Have a Drink Containing Alcohol: Never - Substance Use History Substance History: No History of Abuse - Travel History Recent Travel in the [place] Within the Last 8 Weeks: No Recent Travel Out of the Country Within the Last 8 Weeks: No - Immunization History Tetanus Immunization: >5 Years Medications and Allergies Active Medications: Active Medications Acetaminophen (Tylenol) 650 mg PO Q4H PRN PRN Reason: Temp > 100.4 Amlodipine Besylate (Norvasc) 10 mg PO DAILY [facility] Last Admin: 12/27/17 09:14 Dose: 10 mg Aspirin (Aspirin) 325 mg PO DAILY [facility] Last Admin: 12/27/17 09:15 Dose: 325 mg Dextrose (D50w Vial) 50 ml IV.PUSH UNSCH PRN PRN Reason: per Hypoglycemic Protocol Enalaprilat (Vasotec Inj) 1.25 mg IV.PUSH Q6H PRN PRN Reason: BLOOD PRESSURE MANAGEMENT Glucagon (Glucagon Inj) 1 mg OTHER UNSCH PRN PRN Reason: per Hypoglycemic Protocol Heparin Sodium (Porcine) (Heparin Inj) 5,000 units SQ Q8HR [facility] Hydrochlorothiazide (Microzide) 12.5 mg PO DAILY [facility] Last Admin: 12/27/17 09:14 Dose: 12.5 mg Sodium Chloride (Ns Inj) 1,000 mls @ 70 mls/hr IV.CONT .[id number] [facility] Last Infusion: 12/27/17 10:27 Dose: 70 mls/hr Sodium Chloride (Ns Inj) 1,000 mls @ 0 mls/hr IV.SIG BOLUS [facility] Insulin Aspart (Novolog Insulin Correctional Sugar Inj) 0 unit SQ ACHS [facility]; Protocol Last Admin: 12/27/17 09:22 Dose: 1 unit Metoprolol Tartrate (Lopressor) 50 mg PO BID [facility] Last Admin: 12/27/17 09:15 Dose: 50 mg Ondansetron HCl (Zofran Inj) 4 mg IV.PUSH Q6H PRN PRN Reason: NAUSEA OR VOMITING Pravastatin Sodium (Pravachol) 40 mg PO HS [facility] Last Admin: 12/26/17 21:38 Dose: 40 mg Pravastatin Sodium (Pravachol) 20 mg PO DAILY [facility] Last Admin: 12/27/17 09:15 Dose: 20 mg Senna/Docusate Sodium (April-Colace) 1 tab PO BID [facility] Last Admin: 12/27/17 09:14 Dose: 1 tab Allergies Allergy/AdvReac Type Severity Reaction Status Date / Time No Known Allergies Allergy Uncoded 04/20/14 16:30 Home Medications Medication Instructions Recorded Confirmed Type amlodipine 10 mg PO DAILY 12/26/17 12/26/17 History hydrochlorothiazide 12.5 mg PO DAILY 12/26/17 12/26/17 History lovastatin 20 mg PO DAILY 12/26/17 12/26/17 History metformin 500 mg PO BID 12/26/17 12/26/17 History metoprolol tartrate 50 mg PO BID 12/26/17 12/26/17 History Exam Vital signs: Vital Signs 12/26/17 15:40 12/26/17 16:06 12/26/17 16:12 Temperature 98.1 F 98.1 F Pulse Rate 114 H 114 H 116 H Respiratory Rate 18 18 Blood Pressure 166/86 H 210/103 H Pulse Oximetry 95 94 L 94 L 12/26/17 17:30 12/26/17 18:29 12/26/17 20:00 Temperature 97.8 F 98 F Pulse Rate 124 H 110 H 107 H Respiratory Rate 18 20 20 Blood Pressure 210/91 H 182/100 H 185/115 H Pulse Oximetry 96 96 12/26/17 20:27 12/27/17 00:00 12/27/17 07:22 Temperature 98.3 F Pulse Rate 113 H 121 H Respiratory Rate 20 Blood Pressure 178/93 H Pulse Oximetry 96 92 L 12/27/17 08:00 12/27/17 11:22 Temperature 98.9 F Pulse Rate 119 H Respiratory Rate 18 Blood Pressure 194/119 H Pulse Oximetry 94 L 95 Intake & Output 12/26/17 12/27/17 12/27/17 18:59 06:59 18:59 Output Total 600 / 600 Balance -600 / -600 Weight 156 kg 156 kg Output: Urine 600 / 600 Other: Date of Last Bowel Movement 12/26/17 Narrative: General:Obese male, sitting up in bed in no obvious distress. Somewhat confused during examination. HEENT: Normocephalic, atraumatic. Extraocular muscles intact.. Neuro: Awake, alert and oriented to person and place only. Seems somewhat confused, unsure if this is his baseline. Unable to move right upper extremity and has notable weakness of his right lower extremity, able to flex at the waist but not extend at the knee. Sensation is diminished in the right upper and lower extremity. CV: Tachycardic with regular rhythm, 2/6 systolic murmur Lungs: Clear to auscultate bilaterally, nonlabored breathing on room air, no wheezing,rhonchi or crackles. No accessory muscle use. Abdomen: Obese but soft, nontender. Positive bowel sound Results - Labs Result diagrams: 12/27/17 05:29 12/27/17 05:29 Abnormal lab results 12/26/17 12/26/17 12/26/17 Range/Units 15:41 15:45 15:45 WBC (4.0-11.0) th/mm3 Neut % (Auto) (16.0-70.0) % [place] % (Auto) (0.0-8.0) % Neut # (Auto) (1.8-7.7) th/mm3 [place] # (Auto) (0.0-0.9) th/mm3 Fibrinogen (227-377) mg/dL Sodium 135 L (136-145) meq/L POC Potassium 3.0 L (3.6-5.0) mmol/L Potassium 3.0 L (3.5-5.1) meq/L POC Chloride 97 L (102-111) mmol/L Estimated GFR 64 L (>89) mL/min POC Glucose 168 H 164 H (68-110) mg/dl Random Glucose 160 H (74-106) mg/dL Calcium (8.5-10.1) mg/dL Troponin I Less than 0.02 L (0.02-0.05) ng/mL Albumin 3.1 L (3.4-5.0) g/dL HDL Cholesterol (40.0-60.0) mg/dL Urine Ketones (Negative) mg/dL Urine Occult Blood (Negative) Urine RBC (0-3) /hpf Urine Mucus (Occasional) /lpf 12/26/17 12/26/17 12/26/17 Range/Units 18:48 19:16 19:16 WBC 13.9 H (4.0-11.0) th/mm3 Neut % (Auto) 72.9 H (16.0-70.0) % [place] % (Auto) 14.9 H (0.0-8.0) % Neut # (Auto) 10.1 H (1.8-7.7) th/mm3 [place] # (Auto) 2.1 H (0.0-0.9) th/mm3 Fibrinogen 443 H (227-377) mg/dL Sodium (136-145) meq/L POC Potassium (3.6-5.0) mmol/L Potassium (3.5-5.1) meq/L POC Chloride (102-111) mmol/L Estimated GFR (>89) mL/min POC Glucose 155 H (68-110) mg/dl Random Glucose (74-106) mg/dL Calcium (8.5-10.1) mg/dL Troponin I (0.02-0.05) ng/mL Albumin (3.4-5.0) g/dL HDL Cholesterol (40.0-60.0) mg/dL Urine Ketones (Negative) mg/dL Urine Occult Blood (Negative) Urine RBC (0-3) /hpf Urine Mucus (Occasional) /lpf 12/26/17 12/27/17 12/27/17 Range/Units 21:32 04:00 05:29 WBC 14.1 H (4.0-11.0) th/mm3 Neut % (Auto) 71.0 H (16.0-70.0) % [place] % (Auto) 18.1 H (0.0-8.0) % Neut # (Auto) 10.0 H (1.8-7.7) th/mm3 [place] # (Auto) 2.5 H (0.0-0.9) th/mm3 Fibrinogen (227-377) mg/dL Sodium (136-145) meq/L POC Potassium (3.6-5.0) mmol/L Potassium (3.5-5.1) meq/L POC Chloride (102-111) mmol/L Estimated GFR (>89) mL/min POC Glucose 122 H (68-110) mg/dl Random Glucose (74-106) mg/dL Calcium (8.5-10.1) mg/dL Troponin I (0.02-0.05) ng/mL Albumin (3.4-5.0) g/dL HDL Cholesterol (40.0-60.0) mg/dL Urine Ketones Trace H (Negative) mg/dL Urine Occult Blood Moderate H (Negative) Urine RBC 143 H (0-3) /hpf Urine Mucus Few H (Occasional) /lpf 12/27/17 12/27/17 Range/Units 05:29 09:19 WBC (4.0-11.0) th/mm3 Neut % (Auto) (16.0-70.0) % [place] % (Auto) (0.0-8.0) % Neut # (Auto) (1.8-7.7) th/mm3 [place] # (Auto) (0.0-0.9) th/mm3 Fibrinogen (227-377) mg/dL Sodium (136-145) meq/L POC Potassium (3.6-5.0) mmol/L Potassium 3.2 L (3.5-5.1) meq/L POC Chloride (102-111) mmol/L Estimated GFR (>89) mL/min POC Glucose 189 H (68-110) mg/dl Random Glucose 155 H (74-106) mg/dL Calcium 8.4 L (8.5-10.1) mg/dL Troponin I (0.02-0.05) ng/mL Albumin 2.8 L (3.4-5.0) g/dL HDL Cholesterol 30.4 L (40.0-60.0) mg/dL Urine Ketones (Negative) mg/dL Urine Occult Blood (Negative) Urine RBC (0-3) /hpf Urine Mucus (Occasional) /lpf Short CBC 12/26/17 12/27/17 Range/Units 19:16 05:29 WBC 13.9 H 14.1 H (4.0-11.0) th/mm3 Hgb 15.1 15.8 (13.0-17.0) gm/dL Hct 42.6 44.8 (39.0-51.0) % Plt Count 223 208 (150-450) th/mm3 BMP 12/26/17 12/27/17 15:45 05:29 Sodium 135 L 139 Potassium 3.0 L 3.2 L Chloride 99 103 Carbon Dioxide 23.0 24.5 BUN 12 10 Creatinine 1.20 0.88 Calcium 8.9 8.4 L Cardiac Enzymes 12/26/17 12/26/17 12/26/17 Range/Units 15:45 15:45 21:05 Total Creatine Kinase 73 Cancelled (39-308) U/L Troponin I Less than 0.02 L Cancelled 0.02 (0.02-0.05) ng/mL Liver Function 12/26/17 12/27/17 Range/Units 15:45 05:29 Total Bilirubin 0.5 0.7 (0.2-1.0) mg/dL AST 26 24 (15-37) U/L ALT 38 32 (12-78) U/L Alkaline Phosphatase 86 89 (45-117) U/L Albumin 3.1 L 2.8 L (3.4-5.0) g/dL Urine 12/27/17 Range/Units 04:00 Urine Color Yellow (Yellw/Straw) Urine Clarity Clear (Clear) Urine pH 7.0 (5.0-8.5) Ur Specific [place] 1.017 (1.002-1.035) Urine Protein 500 or greater (Neg-Trace) mg/dL Urine Glucose (UA) 50 (Negative) mg/dL - Imaging Impressions Head MRI 12/26/17 00:00 CONCLUSION: Large area of acute infarction left posterior parietal lobe extending into the periventricular regions without hemorrhage or mass effect. Findings were discussed with the patient's nurse Giselle Damian at the time of this dictation on at 8:45 PM. Chest X-Ray 12/26/17 15:40 CONCLUSION: Mild cardiomegaly. Clear lungs. Head CT 12/26/17 15:40 CONCLUSION: 1. No acute intracranial abnormality. Report was called by [Dr. Lechuga to at 1608 hours ] Head CTA 12/26/17 15:40 CONCLUSION: 1. Atherosclerotic disease without hemodynamically significant stenosis or filling defect to suggest thrombus. Results were called to Dr. Collier by Dr. Lechuga at 1630 hours Neck CTA 12/26/17 15:40 CONCLUSION: 1. Patent carotid arteries bilaterally. 2. The left vertebral artery is dominant. Caprini VTE Risk Assessment Caprini VTE Risk Assessment: Moderate/High Risk (score >= 2) Caprini Risk Assessment Model: Point Value = 1 Point Value = 2 Point Value = 3 Point Value = 5 Age 41-60 Minor surgery BMI > 25 kg/m2 Swollen legs Varicose veins or History of unexplained or recurrent spontaneous Oral contraceptives or hormone replacement Sepsis (< 1 month) Serious lung disease, including pneumonia (< 1 month) Abnormal pulmonary function Acute myocardial infarction Congestive heart failure (< 1 month) History of inflammatory bowel disease Medical patient at bed rest Age 61-74 Arthroscopic surgery Major open surgery (> 45 min) Laparoscopic surgery (> 45 min) Malignancy Confined to bed (> 72 hours) Immobilizing plaster cast Central venous access Age >= 75 History of VTE Family history of VTE Factor V Leiden Prothrombin [id number] Lupus anticoagulant Anticardiolipin antibodies Elevated serum homocysteine Heparin-induced thrombocytopenia Other congenital or acquired thrombophilia Stroke (< 1 month) Elective arthroplasty Hip, pelvis, or leg fracture Acute spinal cord injury (< 1 month) Prophylaxis Regimen: Total Risk Factor Score Risk Level Prophylaxis Regimen 0-1 Low Early ambulation 2 Moderate Order ONE of the following: *Sequential Compression Device (SCD) *Heparin 5000 units SQ BID 3-4 Higher Order ONE of the following medications: *Heparin 5000 units SQ TID *Enoxaparin/Lovenox 40 mg SQ daily (WT < 150 kg, CrCl > 30 mL/min) *Enoxaparin/Lovenox 30 mg SQ daily (WT < 150 kg, CrCl > 10-29 mL/min) *Enoxaparin/Lovenox 30 mg SQ BID (WT < 150 kg, CrCl > 30 mL/min) AND/OR *Sequential Compression Device (SCD) 5 or more Highest Order ONE of the following medications: *Heparin 5000 units SQ TID (Preferred with Epidurals) *Enoxaparin/Lovenox 40 mg SQ daily (WT < 150 kg, CrCl > 30 mL/min) *Enoxaparin/Lovenox 30 mg SQ daily (WT < 150 kg, CrCl > 10-29 mL/min) *Enoxaparin/Lovenox 30 mg SQ BID (WT < 150 kg, CrCl > 30 mL/min) AND *Sequential Compression Device (SCD) Assessment and Plan - Assessment (1) Stroke Code(s): I63.9 - Cerebral infarction, unspecified Status: Acute Plan: Stroke precautions with head of bed flat times 24 hours except for eating, elevate to 30 degrees Continue neuro checks Permissive hypertension times 24 hours Started on aspirin 325 mg daily Statin therapy will be increased to high intensity PT/OT/ST consulted for evaluation Neurology consult ordered and pending Cardiology consult: 2D echocardiogram ordered consider possible WINIFRED Imaging: Head CT: No acute intracranial abnormality Head CTA: Atherosclerotic disease without hemodynamically significant stenosis or filling defect to suggest thrombus Neck CTA: Patent carotid arteries bilaterally, left vertebral artery is dominant Brain MRI: Large area of acute infarction left posterior parietal lobe extending into the periventricular regions without hemorrhage or mass-effect. (2) Hypertension Code(s): I10 - Essential (primary) hypertension Status: Chronic Plan: Permissive hypertension for 24 hours -Vasotec as needed for systolic blood pressure greater than 220 mmHg or diastolic blood pressure greater than 120 mmHg Restart home medications of amlodipine 10 mg daily, hydrochlorothiazide 12.5 mg daily, and metoprolol 50 mg twice daily this morning (3) Hyperlipidemia Code(s): E78.5 - Hyperlipidemia, unspecified Status: Chronic Plan: Lipid panel ordered: Total cholesterol 145, LDL 88, HDL 30, triglycerides 133 Patient presented on low intensity statin, we will advance to high intensity statin treatment (4) Diabetes mellitus Code(s): E11.9 - Type 2 diabetes mellitus without complications Status: Acute Plan: Monitor blood sugars Patient placed on low insulin sliding scale per protocol Holding home metformin Hemoglobin A1c ordered and pending (5) Hx of completed stroke Code(s): Z86.73 - Personal history of transient ischemic attack (TIA), and cerebral infarction without residual deficits Status: Chronic Plan: See management for acute stroke (6) Obesities, morbid Code(s): E66.01 - Morbid (severe) obesity due to excess calories Status: Acute Plan: Consider nutrition consult prior to discharge (1) Stroke Qualifiers: Laterality of affected vessel: left (2) Hypertension Qualifiers: Hypertension type: essential hypertension Qualified Code(s): I10 - Essential (primary) hypertension (4) Diabetes mellitus Qualifiers: Diabetes mellitus type: type 2 Diabetes mellitus complication status: with unspecified complications
[2017-12-27 12:49] LABS: Hemoglobin A1c 6.2 % (4.3-6.0)
--- NOTE | 2017-12-27 13:30 | ECG ---
Date Performed: 12/26/2017 Time Performed: 16:09:17 PTAGE: 52 years EKG: SINUS TACHYCARDIA LEFT AXIS DEVIATION INFERIOR IN OF UNDETERMINED AGE POOR INITIAL ANTERIOR FORCES WHICH MAY BE RELATED TO ANTEROSEPTAL IN VS. AXIS DEVIATION Compared to previous tracing, ther e is actually improvements in the R-forces in V3-V6. Otherwise no significant change. ABNORMAL ECG PREVIOUS TRACING : 05/13/2013 21.33 DOCTOR: Anthony Chin Interpretating Date/Time 12/27/2017 13:30:06
[2017-12-27] MEDS: Heparin - SQ 10,000 UNITS/ML Vial SQ SCH ×2 (16:14→21:20)
[2017-12-28] MEDS: Heparin - SQ 10,000 UNITS/ML Vial SQ SCH ×3 (05:43→21:50)
[2017-12-28 07:45] LABS: Hematocrit 43.2 % (39.0-51.0); Mean Corpuscular HGB Conc 34.7 % (32.0-36.0); Mean Corpuscular Hemoglobin 29.6 pg (27.0-34.0); Mean Corpuscular Volume 85.3 fL (80.0-100.0); Mean Platelet Volume 9.2 fL (7.0-11.0); Platelet Count 208 th/mm3 (150-450); Red Blood Count 5.06 mil/mm3 (4.50-5.90); Red Cell Distribution Width 13.9 % (11.6-17.2); White Blood Count 13.1 th/mm3 (4.0-11.0)
--- NOTE | 2017-12-28 08:01 | P.PNCA ---
Subjective Interval history: patient reports continued R-sided leg and arm weakness. no chest pain, sob or palpitations. WINIFRED planned for Friday12/29/17 Medications and Allergies Active Medications: Active Medications Acetaminophen (Tylenol) 650 mg PO Q4H PRN PRN Reason: Temp > 100.4 Amlodipine Besylate (Norvasc) 10 mg PO DAILY [facility] Last Admin: 12/27/17 09:14 Dose: 10 mg Aspirin (Aspirin) 325 mg PO DAILY [facility] Last Admin: 12/27/17 09:15 Dose: 325 mg Dextrose (D50w Vial) 50 ml IV.PUSH UNSCH PRN PRN Reason: per Hypoglycemic Protocol Enalaprilat (Vasotec Inj) 1.25 mg IV.PUSH Q6H PRN PRN Reason: BP > 170/100 Glucagon (Glucagon Inj) 1 mg OTHER UNSCH PRN PRN Reason: per Hypoglycemic Protocol Heparin Sodium (Porcine) (Heparin Inj) 5,000 units SQ Q8HR [facility] Last Admin: 12/28/17 05:43 Dose: 5,000 units Hydrochlorothiazide (Microzide) 12.5 mg PO DAILY [facility] Last Admin: 12/27/17 09:14 Dose: 12.5 mg Sodium Chloride (Ns Inj) 1,000 mls @ 70 mls/hr IV.CONT .[id number] [facility] Last Admin: 12/27/17 21:04 Dose: 70 mls/hr Sodium Chloride (Ns Inj) 1,000 mls @ 0 mls/hr IV.SIG BOLUS [facility] Insulin Aspart (Novolog Insulin Correctional Sugar Inj) 0 unit SQ ACHS [facility]; Protocol Last Admin: 12/27/17 21:20 Dose: 1 unit Metoprolol Tartrate (Lopressor) 50 mg PO BID [facility] Last Admin: 12/27/17 21:20 Dose: 50 mg Ondansetron HCl (Zofran Inj) 4 mg IV.PUSH Q6H PRN PRN Reason: NAUSEA OR VOMITING Pravastatin Sodium (Pravachol) 40 mg PO HS [facility] Last Admin: 12/27/17 21:20 Dose: 40 mg Senna/Docusate Sodium (April-Colace) 1 tab PO BID [facility] Last Admin: 12/27/17 21:20 Dose: 1 tab Allergies Allergy/AdvReac Type Severity Reaction Status Date / Time No Known Allergies Allergy Uncoded 04/20/14 16:30 Home Medications Medication Instructions Recorded Confirmed Type amlodipine 10 mg PO DAILY 12/26/17 12/26/17 History hydrochlorothiazide 12.5 mg PO DAILY 12/26/17 12/26/17 History lovastatin 20 mg PO DAILY 12/26/17 12/26/17 History metformin 500 mg PO BID 12/26/17 12/26/17 History metoprolol tartrate 50 mg PO BID 12/26/17 12/26/17 History Physical Exam Vital signs: Vital Signs 12/27/17 08:00 12/27/17 09:00 12/27/17 11:22 Temperature 98.9 F Pulse Rate 119 H 125 H Respiratory Rate 18 Blood Pressure 194/119 H Pulse Oximetry 94 L 95 12/27/17 12:00 12/27/17 16:00 12/27/17 17:52 Temperature 98.8 F 98.8 F Pulse Rate 93 H 84 Respiratory Rate 18 18 Blood Pressure 147/93 H 169/92 H Pulse Oximetry 96 96 96 12/27/17 20:00 12/28/17 00:00 12/28/17 04:00 Temperature 98.7 F 98.7 F 98.8 F Pulse Rate 99 H 88 89 Respiratory Rate 18 16 16 Blood Pressure 158/92 H 152/88 H 156/91 H Pulse Oximetry 96 95 96 Intake & Output 12/27/17 12/28/17 12/28/17 18:59 06:59 18:59 Intake Total 320 / 320 Output Total 650 / 650 700 / 700 Balance -650 / -650 -380 / -380 Intake: Oral 320 / 320 Output: Urine 650 / 650 700 / 700 Other: Date of Last Bowel Movement 12/26/17 12/26/17 Narrative: GENERAL: obese male SKIN: Warm and dry. HEAD: Normocephalic. EYES: No scleral icterus. No injection or drainage. NECK: Supple, trachea midline. No JVD or lymphadenopathy. CARDIOVASCULAR: Regular rate and rhythm without murmurs, gallops, or rubs. RESPIRATORY: Breath sounds equal bilaterally. No accessory muscle use. GASTROINTESTINAL: Abdomen soft, non-tender, nondistended. MUSCULOSKELETAL: No cyanosis, or edema. Results 12/28/17 06:46 12/27/17 05:29 Cardiac Enzymes 12/26/17 12/26/17 12/26/17 Range/Units 15:45 15:45 21:05 AST 26 (15-37) U/L Troponin I Less than 0.02 L Cancelled 0.02 (0.02-0.05) ng/mL 12/27/17 Range/Units 05:29 AST 24 (15-37) U/L Troponin I (0.02-0.05) ng/mL Coagulation 12/26/17 Range/Units 19:16 PT 11.0 (9.8-11.6) sec APTT 27.8 (24.3-30.1) sec Lipids 12/26/17 12/27/17 Range/Units 15:45 05:29 Triglycerides 113 133 (42-150) mg/dL Cholesterol 148 145 (120-200) mg/dL HDL Cholesterol 40.3 30.4 L (40.0-60.0) mg/dL Cholesterol/HDL Ratio 3.67 4.76 Ratio CBC 12/26/17 12/27/17 12/28/17 Range/Units 19:16 05:29 06:46 WBC 13.9 H 14.1 H 13.1 H (4.0-11.0) th/mm3 RBC 5.08 5.27 5.06 (4.50-5.90) mil/mm3 Hgb 15.1 15.8 15.0 (13.0-17.0) gm/dL Hct 42.6 44.8 43.2 (39.0-51.0) % Plt Count 223 208 208 (150-450) th/mm3 Neut # (Auto) 10.1 H 10.0 H (1.8-7.7) th/mm3 Lymph # (Auto) 1.6 1.4 (1.0-4.8) th/mm3 [place] # (Auto) 2.1 H 2.5 H (0.0-0.9) th/mm3 Eos # (Auto) 0.0 0.0 (0.0-0.4) th/mm3 Baso # (Auto) 0.1 0.1 (0.0-0.2) th/mm3 Comprehensive Metabolic Panel 12/26/17 12/27/17 Range/Units 15:45 05:29 Sodium 135 L 139 (136-145) meq/L Potassium 3.0 L 3.2 L (3.5-5.1) meq/L Chloride 99 103 (98-107) meq/L Carbon Dioxide 23.0 24.5 (21.0-32.0) meq/L BUN 12 10 (7-18) mg/dL Creatinine 1.20 0.88 (0.60-1.30) mg/dL Calcium 8.9 8.4 L (8.5-10.1) mg/dL AST 26 24 (15-37) U/L ALT 38 32 (12-78) U/L Alkaline Phosphatase 86 89 (45-117) U/L Total Protein 8.1 7.6 (6.4-8.2) g/dL Albumin 3.1 L 2.8 L (3.4-5.0) g/dL Intake and Output 12/27/17 12/28/17 12/28/17 22:59 06:59 14:59 Intake Total 320 / 320 Output Total 325 / 325 700 / 700 Balance -325 / -325 -380 / -380 Intake: Oral 320 / 320 Output: Urine 325 / 325 700 / 700 Other: Date of Last Bowel Movement 12/26/17 - Imaging and Cardiology Imaging: Impressions Head MRI 12/26/17 00:00 CONCLUSION: Large area of acute infarction left posterior parietal lobe extending into the periventricular regions without hemorrhage or mass effect. Findings were discussed with the patient's nurse Giselle Damian at the time of this dictation on at 8:45 PM. Chest X-Ray 12/26/17 15:40 CONCLUSION: Mild cardiomegaly. Clear lungs. Head CT 12/26/17 15:40 CONCLUSION: 1. No acute intracranial abnormality. Report was called by [Dr. Lechuga to at 1608 hours ] Head CTA 12/26/17 15:40 CONCLUSION: 1. Atherosclerotic disease without hemodynamically significant stenosis or filling defect to suggest thrombus. Results were called to Dr. Collier by Dr. Lechuga at 1630 hours Neck CTA 12/26/17 15:40 CONCLUSION: 1. Patent carotid arteries bilaterally. 2. The left vertebral artery is dominant. Assessment and Plan - Assessment (1) Hypertension Code(s): I10 - Essential (primary) hypertension Status: Chronic (2) Stroke Code(s): I63.9 - Cerebral infarction, unspecified Status: Acute - Plan 52 yo obese male tobacco user with HTN, HLD, DMII, reported history of prior stroke and cardiomyopathy who presents with sudden onset unilateral leg and arm weakness and dysarthria. Patient lives at home and provides limited history at time of exam. MRI reveals large area of acute infarction L posterior parietal lobe extending into the periventricular regions without mass or hemorrhage. CVA- recurrent CVA with R-arm and leg weakness plan for WINIFRED on Friday12/29/17, keep npo after midnight 2D echo ordered no events on telemetry a.m labs pending cont asa and statin medical management per neurology HTN urgency- improving on current medical regimen: metoprolol 50mg BID, amlodipine 10mg, hctz 12.5mg, vasotec prn (1) Hypertension Qualifiers: Hypertension type: essential hypertension Qualified Code(s): I10 - Essential (primary) hypertension (2) Stroke Qualifiers: Laterality of affected vessel: left
[2017-12-28 08:04] LABS: Calcium 8.6 mg/dL (8.5-10.1); Carbon Dioxide 24.6 meq/L (21.0-32.0); Potassium 3.1 meq/L (3.5-5.1)
[2017-12-28] MEDS: Metoprolol Tartrate 50 MG Tablet PO SCH ×2 (09:43→21:50)
[2017-12-28] MEDS: Aspirin 325 MG Tablet PO SCH (09:43)
[2017-12-28] MEDS: Senna/Docusate Sodium 8.6/50 MG Tablet PO SCH ×2 (09:43→21:51)
[2017-12-28] MEDS: Insulin NovoLOG Aspart Correctional Sugar Inj SQ SCH ×4 (09:43→21:51)
[2017-12-28] MEDS: amLODIPine 10 MG Tablet PO SCH (09:43)
--- NOTE | 2017-12-28 12:24 | P.PN ---
Subjective Interval history: pt seen and dictated yesterday 12/27 dictation # [id number]. f.u today seems weaker on right leg. Physical Exam Vital signs: Vital Signs 12/27/17 16:00 12/27/17 17:52 12/27/17 20:00 Temperature 98.8 F 98.7 F Pulse Rate 84 99 H Respiratory Rate 18 18 Blood Pressure 169/92 H 158/92 H Pulse Oximetry 96 96 96 12/28/17 00:00 12/28/17 04:00 12/28/17 08:00 Temperature 98.7 F 98.8 F 99.0 F Pulse Rate 88 89 96 H Respiratory Rate 16 16 16 Blood Pressure 152/88 H 156/91 H 173/108 H Pulse Oximetry 95 96 95 Intake & Output 12/27/17 12/28/17 12/28/17 18:59 06:59 18:59 Intake Total 320 / 320 Output Total 650 / 650 700 / 700 Balance -650 / -650 -380 / -380 Intake: Oral 320 / 320 Output: Urine 650 / 650 700 / 700 Other: Date of Last Bowel Movement 12/26/17 12/26/17 Narrative: awake alert dysarthric w/facial droop on right right arm 0/5 right leg 3/5 at the hip and 2/5 ditally dtrs 1-2+ right toe up gait deferred. Results - Labs CBC & Chem 7: 12/28/17 06:46 12/28/17 06:46 Laboratory Results - last 24 hr 12/26/17 12/27/17 12/27/17 19:16 12:25 16:12 WBC RBC Hgb Hct MCV MCH MCHC RDW Plt Count MPV Sodium Potassium Chloride Carbon Dioxide Anion Gap BUN Creatinine Estimated GFR POC Glucose 191 H 128 H Random Glucose Hemoglobin A1c 6.2 H Calcium 12/27/17 12/28/17 12/28/17 21:08 06:46 06:46 WBC 13.1 H RBC 5.06 Hgb 15.0 Hct 43.2 MCV 85.3 MCH 29.6 MCHC 34.7 RDW 13.9 Plt Count 208 MPV 9.2 Sodium 136 Potassium 3.1 L Chloride 100 Carbon Dioxide 24.6 Anion Gap 11 BUN 17 Creatinine 0.94 Estimated GFR 84 L POC Glucose 179 H Random Glucose 131 H Hemoglobin A1c Calcium 8.6 12/28/17 07:20 WBC RBC Hgb Hct MCV MCH MCHC RDW Plt Count MPV Sodium Potassium Chloride Carbon Dioxide Anion Gap BUN Creatinine Estimated GFR POC Glucose 127 H Random Glucose Hemoglobin A1c Calcium Assessment and Plan - Plan WINIFRED in am 325mg asa qd may still need to consider AC pt-ot-st rehab scds and lovenox statin risk factor modification.
--- NOTE | 2017-12-28 12:54 | P.PNFP ---
Subjective Interval history: Patient was seen and evaluated this morning. He reports feeling well and has no acute concerns. He denies chest pain, shortness of breath, nausea, vomiting, diarrhea and constipation. All questions were answered. <Mayelin Koch - 12/28/17 12:54> Results - Labs Result diagrams: 12/28/17 06:46 12/28/17 06:46 <Lexx Robles - 12/28/17 14:28> Abnormal lab results 12/27/17 12/27/17 12/28/17 Range/Units 16:12 21:08 06:46 WBC 13.1 H (4.0-11.0) th/mm3 Potassium (3.5-5.1) meq/L Estimated GFR (>89) mL/min POC Glucose 128 H 179 H (68-110) mg/dl Random Glucose (74-106) mg/dL 12/28/17 12/28/17 12/28/17 Range/Units 06:46 07:20 12:52 WBC (4.0-11.0) th/mm3 Potassium 3.1 L (3.5-5.1) meq/L Estimated GFR 84 L (>89) mL/min POC Glucose 127 H 139 H (68-110) mg/dl Random Glucose 131 H (74-106) mg/dL Short CBC 12/28/17 Range/Units 06:46 WBC 13.1 H (4.0-11.0) th/mm3 Hgb 15.0 (13.0-17.0) gm/dL Hct 43.2 (39.0-51.0) % Plt Count 208 (150-450) th/mm3 [facility] 12/28/17 06:46 Sodium 136 Potassium 3.1 L Chloride 100 Carbon Dioxide 24.6 BUN 17 Creatinine 0.94 Calcium 8.6 <Lexx Robles - 12/28/17 14:28> Abnormal lab results 12/26/17 12/27/17 12/27/17 Range/Units 19:16 12:25 16:12 WBC (4.0-11.0) th/mm3 Potassium (3.5-5.1) meq/L Estimated GFR (>89) mL/min POC Glucose 191 H 128 H (68-110) mg/dl Random Glucose (74-106) mg/dL Hemoglobin A1c 6.2 H (4.3-6.0) % 12/27/17 12/28/17 12/28/17 Range/Units 21:08 06:46 06:46 WBC 13.1 H (4.0-11.0) th/mm3 Potassium 3.1 L (3.5-5.1) meq/L Estimated GFR 84 L (>89) mL/min POC Glucose 179 H (68-110) mg/dl Random Glucose 131 H (74-106) mg/dL Hemoglobin A1c (4.3-6.0) % 12/28/17 Range/Units 07:20 WBC (4.0-11.0) th/mm3 Potassium (3.5-5.1) meq/L Estimated GFR (>89) mL/min POC Glucose 127 H (68-110) mg/dl Random Glucose (74-106) mg/dL Hemoglobin A1c (4.3-6.0) % Short CBC 12/28/17 Range/Units 06:46 WBC 13.1 H (4.0-11.0) th/mm3 Hgb 15.0 (13.0-17.0) gm/dL Hct 43.2 (39.0-51.0) % Plt Count 208 (150-450) th/mm3 BMP 12/28/17 06:46 Sodium 136 Potassium 3.1 L Chloride 100 Carbon Dioxide 24.6 BUN 17 Creatinine 0.94 Calcium 8.6 <AugustMayelin - 12/28/17 12:54> Physical Exam Vital signs: Vital Signs 12/27/17 16:00 12/27/17 17:52 12/27/17 20:00 Temperature 98.8 F 98.7 F Pulse Rate 84 99 H Respiratory Rate 18 18 Blood Pressure 169/92 H 158/92 H Pulse Oximetry 96 96 96 12/28/17 00:00 12/28/17 04:00 12/28/17 08:00 Temperature 98.7 F 98.8 F 99.0 F Pulse Rate 88 89 96 H Respiratory Rate 16 16 16 Blood Pressure 152/88 H 156/91 H 173/108 H Pulse Oximetry 95 96 95 12/28/17 09:00 12/28/17 12:00 Temperature 98.3 F Pulse Rate 94 H 74 Respiratory Rate 18 Blood Pressure 168/96 H Pulse Oximetry 94 L Intake & Output 12/27/17 12/28/17 12/28/17 18:59 06:59 18:59 Intake Total 320 / 320 1000 / 1000 Output Total 650 / 650 700 / 700 Balance -650 / -650 -380 / -380 1000 / 1000 Intake: IV 1000 / 1000 NS Inj 1,000 ML @ 70 mls/hr IV. 1000 / 1000 CONT .[id number] [facility] Rx#:[id number] Oral 320 / 320 Output: Urine 650 / 650 700 / 700 Other: Date of Last Bowel Movement 12/26/17 12/26/17 12/26/17 <Lexx Robles - 12/28/17 14:28> Vital Signs 12/27/17 16:00 12/27/17 17:52 12/27/17 20:00 Temperature 98.8 F 98.7 F Pulse Rate 84 99 H Respiratory Rate 18 18 Blood Pressure 169/92 H 158/92 H Pulse Oximetry 96 96 96 12/28/17 00:00 12/28/17 04:00 12/28/17 08:00 Temperature 98.7 F 98.8 F 99.0 F Pulse Rate 88 89 96 H Respiratory Rate 16 16 16 Blood Pressure 152/88 H 156/91 H 173/108 H Pulse Oximetry 95 96 95 <Mayelin Koch - 12/28/17 12:54> Narrative: General:Obese male, sitting up in bed in no obvious distress. HEENT: Normocephalic, atraumatic. Extraocular muscles intact. Neuro: Awake, alert and oriented to person and place only. Seems somewhat confused, unsure of his baseline. Unable to move right upper extremity and minimal movement of right lower extremity. Sensation is lost over right upper and lower extremities. CV: Regular rate and rhythm; 2/6 systolic murmur. Lungs: Clear to auscultate bilaterally, nonlabored breathing on room air, no wheezing,rhonchi or crackles. No accessory muscle use. Abdomen: Positive bowel sound. Obese but soft, nontender. <Mayelin Koch - 12/28/17 12:54> Assessment and Plan - Assessment (1) Stroke Code(s): I63.9 - Cerebral infarction, unspecified Status: Acute (2) Hypertension Code(s): I10 - Essential (primary) hypertension Status: Chronic (3) Hyperlipidemia Code(s): E78.5 - Hyperlipidemia, unspecified Status: Chronic (4) Diabetes mellitus Code(s): E11.9 - Type 2 diabetes mellitus without complications Status: Acute (5) Hx of completed stroke Code(s): Z86.73 - Personal history of transient ischemic attack (TIA), and cerebral infarction without residual deficits Status: Chronic (6) Obesities, morbid Code(s): E66.01 - Morbid (severe) obesity due to excess calories Status: Acute (7) Nutrition, metabolism, and development symptoms Code(s): R63.8 - Other symptoms and signs concerning food and fluid intake Status: Acute (8) DVT prophylaxis Status: Acute <Lexx Robles - 12/28/17 14:28> (1) Stroke Code(s): I63.9 - Cerebral infarction, unspecified Status: Acute Plan: Head CT: No acute intracranial abnormality. Head CTA: Atherosclerotic disease without hemodynamically significant stenosis or filling defect to suggest thrombus. Neck CTA: Patent carotid arteries bilaterally, left vertebral artery is dominant. Brain MRI: Large area of acute infarction left posterior parietal lobe extending into the periventricular regions without hemorrhage or mass-effect. ECHO pending. Continued neuro checks. Aspirin 325 mg daily. Prevastatin 40mg PO HS. Cardiology consult: WINIFRED tomorrow. Neuro consult: Recommend 325mg aspirin but may consider anticoagulation. PT/OT recommend therapy at rehab. CM involved to assist with placement. (2) Hypertension Code(s): I10 - Essential (primary) hypertension Status: Chronic Plan: Restarted home medications of amlodipine 10 mg daily, hydrochlorothiazide 12.5 mg daily, and metoprolol 50 mg twice daily. Vasotec 1.25mg IV q6hr PRN BP >170/100. Monitor. (3) Hyperlipidemia Code(s): E78.5 - Hyperlipidemia, unspecified Status: Chronic Plan: Lipid panel: total cholesterol 145, LDL 88, HDL 30, triglycerides 133. Patient presented on low intensity statin, advanced to high intensity statin treatment as above. (4) Diabetes mellitus Code(s): E11.9 - Type 2 diabetes mellitus without complications Status: Acute Plan: Patient with history of diabetes. Hgb A1C 8.6. Monitor blood sugars. Patient placed on low insulin sliding scale per protocol. Holding home metformin. (5) Hx of completed stroke Code(s): Z86.73 - Personal history of transient ischemic attack (TIA), and cerebral infarction without residual deficits Status: Chronic Plan: See management for acute stroke. (6) Obesities, morbid Code(s): E66.01 - Morbid (severe) obesity due to excess calories Status: Acute Plan: Consider nutrition consult prior to discharge. (7) Nutrition, metabolism, and development symptoms Code(s): R63.8 - Other symptoms and signs concerning food and fluid intake Status: Acute Plan: Fluids: * Tolerating PO. Electrolytes: * Monitor and replete as necessary. Nutrition: * Cardiac diet, mechanical soft. (8) DVT prophylaxis Status: Acute Plan: Heparin 5,000 units SQ q8hr. SCDs. <Mayelin Koch - 12/28/17 12:34> - Attending Attestation Pt. examined and case discussed with resident physicians. I have read the above note and agree with the assessment and plan as discussed with me. I was involved in all medical decision making for this patient. Lexx Robles MD <Lexx Robles - 12/28/17 14:28> <Mayelin Koch - Last Filed: 12/28/17 12:34> (1) Stroke Qualifiers: Laterality of affected vessel: left (2) Hypertension Qualifiers: Hypertension type: essential hypertension Qualified Code(s): I10 - Essential (primary) hypertension (4) Diabetes mellitus Qualifiers: Diabetes mellitus type: type 2 Diabetes mellitus complication status: with unspecified complications <Lexx Robles - Last Filed: 12/28/17 14:28> (1) Stroke Qualifiers: Laterality of affected vessel: left (2) Hypertension Qualifiers: Hypertension type: essential hypertension Qualified Code(s): I10 - Essential (primary) hypertension (4) Diabetes mellitus Qualifiers: Diabetes mellitus type: type 2 Diabetes mellitus complication status: with unspecified complications <Mayelin Koch - Last Filed: 12/28/17 12:34> (1) Stroke Qualifiers: Laterality of affected vessel: left (2) Hypertension Qualifiers: Hypertension type: essential hypertension Qualified Code(s): I10 - Essential (primary) hypertension (4) Diabetes mellitus Qualifiers: Diabetes mellitus type: type 2 Diabetes mellitus complication status: with unspecified complications <Lexx Robles - Last Filed: 12/28/17 14:28> (1) Stroke Qualifiers: Laterality of affected vessel: left (2) Hypertension Qualifiers: Hypertension type: essential hypertension Qualified Code(s): I10 - Essential (primary) hypertension (4) Diabetes mellitus Qualifiers: Diabetes mellitus type: type 2 Diabetes mellitus complication status: with unspecified complications
[2017-12-28] MEDS: Sod Chloride 0.9% Inj 1,000 ML IV.CONT SCH (12:59)
--- NOTE | 2017-12-28 14:57 | ECHRPT ---
Indication: CVA/TIA CONCLUSIONS The left ventricular systolic function is hyperdynamic with an estimated ejection fraction in the ra nge of 65- 70%. Normal left ventricular size. Moderate concentric left ventricular hypertrophy. No regional wall motion abnormalities are present. BP: / HR: Rhythm: Sinus Technical Quality:Very technically difficult study FINDINGS LEFT VENTRICLE The left ventricular systolic function is hyperdynamic with an estimated ejection fraction in the ra nge of 65- 70%. Normal left ventricular size. Moderate concentric left ventricular hypertrophy. No regional wall motion abnormalities are present. RIGHT VENTRICLE Normal right ventricular size and systolic function. LEFT ATRIUM The left atrial size is normal. RIGHT ATRIUM The right atrial size is normal. ATRIAL SEPTUM Normal atrial septal thickness without atrial level shunting by limited color doppler interrogation. AORTA The aortic root and proximal ascending aorta are normal in size on limited imaging. MITRAL VALVE Structurally normal mitral valve. No mitral valve stenosis or regurgitation. AORTIC VALVE Trileaflet aortic valve. No aortic valve stenosis or regurgitation. TRICUSPID VALVE Structurally normal tricuspid valve. No tricuspid valve stenosis or regurgitation. PULMONARY VALVE The pulmonary valve is not well visualized. VESSELS The inferior vena cava is normal in size. PERICARDIUM No pericardial effusion. Joao James MD, FACC (Electronically Signed) Final Date:28 December 2017 14:56
[2017-12-28] MEDS: Potassium Chloride 25 MEQ Effervescent Tablet PO SCH (17:18)
[2017-12-29] MEDS: Sod Chloride 0.9% Inj 1,000 ML IV.CONT SCH ×3 (01:02→15:48)
[2017-12-29] MEDS: Heparin - SQ 10,000 UNITS/ML Vial SQ SCH ×3 (06:32→22:00)
[2017-12-29] MEDS ORDERED: Chlorhexidine Gluconate 2% 1 Pack (2 Cloths) TOPICAL ONE (07:16)
--- NOTE | 2017-12-29 07:44 | MB ---
cc: Princess Corrales MD DATE: 12/27/2017 REASON FOR CONSULTATION: Right-sided weakness, stroke. HISTORY OF PRESENT ILLNESS: This is a 52-year-old man with history of diabetes, hypertension, hyperlipidemia, cardiomyopathy, prior stroke, came in yesterday feeling that his right arm was heavy, as well as his leg. States this occurred in the morning around 9 o'clock. He returned home and was found by his mother at 11:00. Apparently he was in a recliner, unable to move his right side. Trouble getting words out. He was placed on aspirin in the past, but stopped taking it. Apparently was more than 4 hours since onset when he came in so he was not a candidate for TPA and a stroke alert was not initiated. The patient still has right-sided weakness, but he states he feels better. PAST MEDICAL HISTORY: As stated. SOCIAL HISTORY: Lives with his parents. Chews tobacco. No alcohol. ALLERGIES TO MEDICINE: NONE REPORTED. PHYSICAL EXAMINATION: VITAL SIGNS: Temperature is 98.9, heart rate 119, respiratory rate 18, blood pressure 194/119, saturating at 94% on room air. NECK: Supple. HEART: Slightly tachycardic. NEUROLOGIC: He is awake and alert. His speech is dysarthric. Pupils are reactive. Visual bishop seem full, but he does have right facial asymmetry. He does have a 0/5 on the right upper extremity, cannot even wiggle his fingers. He can feel light touch and temperature. Right leg at best 3/5. He has more range of motion from the knee upwards than distally and he has it internally deviated. His right toe is upgoing. Slightly brisker reflexes on the right and on the left. Cerebellar normal on the left. Gait cannot be assessed, defer to PT. LABORATORY DATA: Reviewed. White count 14.1, platelets 208,000. Chemistry: His potassium is 3.2, his glucose is 155. His hemoglobin A1c is pending. Cholesterol 145, LDL 88, HDL 30.4, triglycerides 133. Urine: Moderate blood, but no culture indicated. Tox screen was negative. IMAGING STUDIES: He had a neck CTA without any acute findings. Head CTA showed some atherosclerotic disease, but without significant stenosis. He did have an MRI of the brain that shows fairly larger infarction left posterior parietal lobe extending into the periventricular regions without mass or hemorrhage. IMPRESSION: Left parietal stroke in a patient with a history of diabetes, cardiomyopathy, hyperlipidemia, hypertension, history of left basal ganglion infarct in the past, as well as smokeless tobacco user. PLAN: Recommend slightly elevated blood pressure for the next 24 hours and start normalizing his BP avoiding hypotension, put him on a full dose aspirin. We will get an echo. Put him on a statin as well since his LDL is 88. Hemoglobin A1c is pending. Depending on what that shows, further recommendations about his diabetes will be considered at that point in time. PT, OT, speech therapy, rehab consult. His echo still pending. I know he was seen by cardiology, defer any further workup from their perspective. However, compliance with antiplatelets should be stressed to the patient, as well as other risk factor modification. In the event there is any type of arrhythmia or possible PFO, if a WINIFRED is done, we would consider anticoagulating him, but at this point we will continue with current recommendations. MD GALEN Watts/erik , 11:17 AM , 11:27 AM
[2017-12-29] MEDS ORDERED: Sodium Chlor 0.9% Inj 500 ML IV.SIG SCH (08:00)
[2017-12-29 08:33] LABS: Hemoglobin 15.1 gm/dL (13.0-17.0); Mean Corpuscular HGB Conc 34.2 % (32.0-36.0); Mean Corpuscular Hemoglobin 29.4 pg (27.0-34.0); Mean Corpuscular Volume 85.8 fL (80.0-100.0); Platelet Count 226 th/mm3 (150-450); Red Blood Count 5.13 mil/mm3 (4.50-5.90); Red Cell Distribution Width 13.7 % (11.6-17.2); White Blood Count 12.6 th/mm3 (4.0-11.0)
--- NOTE | 2017-12-29 08:51 | P.PNFP ---
Subjective Interval history: Patient seen and examined this morning. No complaints currently and in no acute distress. Denies fever, nausea, vomiting, abdominal pain, chest pain, or calf pain. <Kaitlin Oviedo - 12/29/17 12:03> Results - Labs Result diagrams: 12/29/17 07:36 12/29/17 07:36 <Lexx Robles - 12/29/17 21:21> Abnormal lab results 12/29/17 12/29/17 12/29/17 Range/Units 07:36 07:36 08:22 WBC 12.6 H (4.0-11.0) th/mm3 Potassium 3.4 L (3.5-5.1) meq/L POC Glucose 144 H (68-110) mg/dl Random Glucose 129 H (74-106) mg/dL 12/29/17 12/29/17 Range/Units 17:11 20:35 WBC (4.0-11.0) th/mm3 Potassium (3.5-5.1) meq/L POC Glucose 111 H 216 H (68-110) mg/dl Random Glucose (74-106) mg/dL Short CBC 12/29/17 Range/Units 07:36 WBC 12.6 H (4.0-11.0) th/mm3 Hgb 15.1 (13.0-17.0) gm/dL Hct 44.0 (39.0-51.0) % Plt Count 226 (150-450) th/mm3 BMP 12/29/17 07:36 Sodium 136 Potassium 3.4 L Chloride 102 Carbon Dioxide 24.5 BUN 15 Creatinine 0.85 Calcium 8.5 <Lexx Robles - 12/29/17 21:21> Abnormal lab results 12/28/17 12/28/17 12/28/17 Range/Units 12:52 17:15 20:21 WBC (4.0-11.0) th/mm3 POC Glucose 139 H 128 H 157 H (68-110) mg/dl 12/29/17 12/29/17 Range/Units 07:36 08:22 WBC 12.6 H (4.0-11.0) th/mm3 POC Glucose 144 H (68-110) mg/dl Short CBC 12/29/17 Range/Units 07:36 WBC 12.6 H (4.0-11.0) th/mm3 Hgb 15.1 (13.0-17.0) gm/dL Hct 44.0 (39.0-51.0) % Plt Count 226 (150-450) th/mm3 <Kaitlin Oviedo - 12/29/17 08:51> Physical Exam Vital signs: Vital Signs 12/29/17 00:00 12/29/17 04:00 12/29/17 16:33 Temperature 98.7 F 98.8 F Pulse Rate 77 79 78 Respiratory Rate 16 16 Blood Pressure 162/91 H 159/92 H Pulse Oximetry 95 95 12/29/17 20:00 Temperature 98.3 F Pulse Rate 84 Respiratory Rate 18 Blood Pressure Pulse Oximetry 96 Intake & Output 12/29/17 12/29/17 12/30/17 06:59 18:59 06:59 Intake Total 1000 / 1000 1969 / 1969 Output Total 700 / 700 1300 / 1300 Balance 300 / 300 670 / 670 Weight 156 kg Intake: IV 1000 / 1000 1000 / 1000 NS Inj 1,000 ML @ 70 mls/hr IV. 1000 / 1000 1000 / 1000 CONT .[id number] [facility] Rx#:[id number] Oral 250 / 250 Other 720 / 720 Output: Urine 700 / 700 1300 / 1300 Other: Other Intake Source Saline Solution Date of Last Bowel Movement 12/26/17 12/28/17 <Lexx Robles - 12/29/17 21:21> Vital Signs 12/28/17 09:00 12/28/17 12:00 12/28/17 16:00 Temperature 98.3 F 99.0 F Pulse Rate 94 H 74 76 Respiratory Rate 18 16 Blood Pressure 168/96 H 172/91 H Pulse Oximetry 94 L 95 12/28/17 20:00 12/28/17 20:32 12/29/17 00:00 Temperature 98.9 F 98.7 F Pulse Rate 87 77 Respiratory Rate 16 16 Blood Pressure 166/95 H 162/91 H Pulse Oximetry 95 97 95 12/29/17 04:00 Temperature 98.8 F Pulse Rate 79 Respiratory Rate 16 Blood Pressure 159/92 H Pulse Oximetry 95 Intake & Output 12/28/17 12/29/17 12/29/17 18:59 06:59 18:59 Intake Total 1320 / 1320 1000 / 1000 Output Total 700 / 700 700 / 700 Balance 620 / 620 300 / 300 Weight 156 kg Intake: IV 1000 / 1000 1000 / 1000 NS Inj 1,000 ML @ 70 mls/hr IV. 1000 / 1000 1000 / 1000 CONT .[id number] [facility] Rx#:[id number] Oral 320 / 320 Output: Urine 700 / 700 700 / 700 Other: Date of Last Bowel Movement 12/26/17 12/26/17 <Kaitlin Oviedo - 12/29/17 08:51> Narrative: General:Obese male, sitting up in bed in no obvious distress. HEENT: Normocephalic, atraumatic. Extraocular muscles intact. Neuro: Awake, alert and oriented to person and place only. Seems somewhat confused, unsure of his baseline. Unable to move right upper extremity and minimal movement of right lower extremity. Sensation is lost over right upper and lower extremities. CV: Regular rate and rhythm; 2/6 systolic murmur. Lungs: Clear to auscultate bilaterally, nonlabored breathing on room air, no wheezing,rhonchi or crackles. No accessory muscle use. Abdomen: Positive bowel sound. Obese but soft, nontender. Small anterior abdominal wall hernia without tenderness. MSK: Purple discoloration of bilateral lower extremities below the knee consistent with venous stasis. No calf tenderness. Posterior tibialis pulses intact bilaterally. <Kaitlin Oviedo - 12/29/17 11:44> Assessment and Plan - Assessment (1) Stroke Code(s): I63.9 - Cerebral infarction, unspecified Status: Acute (2) Hypertension Code(s): I10 - Essential (primary) hypertension Status: Chronic (3) Hyperlipidemia Code(s): E78.5 - Hyperlipidemia, unspecified Status: Chronic (4) Diabetes mellitus Code(s): E11.9 - Type 2 diabetes mellitus without complications Status: Acute (5) Hx of completed stroke Code(s): Z86.73 - Personal history of transient ischemic attack (TIA), and cerebral infarction without residual deficits Status: Chronic (6) Obesities, morbid Code(s): E66.01 - Morbid (severe) obesity due to excess calories Status: Acute (7) Nutrition, metabolism, and development symptoms Code(s): R63.8 - Other symptoms and signs concerning food and fluid intake Status: Acute (8) DVT prophylaxis Status: Acute <Lexx Robles - 12/29/17 21:21> (1) Stroke Code(s): I63.9 - Cerebral infarction, unspecified Status: Acute Plan: Head CT: No acute intracranial abnormality. Head CTA: Atherosclerotic disease without hemodynamically significant stenosis or filling defect to suggest thrombus. Neck CTA: Patent carotid arteries bilaterally, left vertebral artery is dominant. Brain MRI: Large area of acute infarction left posterior parietal lobe extending into the periventricular regions without hemorrhage or mass-effect. ECHO pending. Continued neuro checks. Aspirin 325 mg daily. Prevastatin 40mg PO HS. Cardiology consult: WINIFRED to be performed today. Neuro consult: Recommend 325mg aspirin, but may consider anticoagulation. PT/OT recommend therapy at rehab. CM involved to assist with placement. Speech evaluation and swallow study ordered. (2) Hypertension Code(s): I10 - Essential (primary) hypertension Status: Chronic Plan: Restarted home medications of amlodipine 10 mg daily and metoprolol 50 mg twice daily. Vasotec 1.25mg IV q6hr PRN BP >170/100. BP up to 172/91 overnight. Will increased HCTZ to 25mg daily. Will consider increasing metoprolol if needed for further blood pressure control. Monitor. (3) Hyperlipidemia Code(s): E78.5 - Hyperlipidemia, unspecified Status: Chronic Plan: Lipid panel: total cholesterol 145, LDL 88, HDL 30, triglycerides 133. Patient presented on low intensity statin, advanced to high intensity statin treatment as above. (4) Diabetes mellitus Code(s): E11.9 - Type 2 diabetes mellitus without complications Status: Acute Plan: Patient with history of diabetes. Hgb A1C 8.6. Monitor blood sugars. Patient placed on low insulin sliding scale per protocol. Holding home metformin. (5) Hx of completed stroke Code(s): Z86.73 - Personal history of transient ischemic attack (TIA), and cerebral infarction without residual deficits Status: Chronic Plan: See management for acute stroke. (6) Obesities, morbid Code(s): E66.01 - Morbid (severe) obesity due to excess calories Status: Acute Plan: Consider nutrition consult prior to discharge. (7) Nutrition, metabolism, and development symptoms Code(s): R63.8 - Other symptoms and signs concerning food and fluid intake Status: Acute Plan: Fluids: * Tolerating PO. Electrolytes: * Monitor and replete as necessary. Nutrition: * Patient NPO after midnight for WINIFRED procedure today. Will resume modified diet following speech evaluation ordered for formal swallow study. (8) DVT prophylaxis Status: Acute Plan: Heparin 5,000 units SQ q8hr. SCDs. <Kaitlin Oviedo - 12/29/17 20:12> - Assessment and Plan 52-year-old male presenting to the emergency department 6 hours after feeling his right leg and right arm feel heavy, as well as right lower extremity weakness and inability to walk. CT head with not acute bleed, CTA head showing atherosclerotic disease without stenosis, and CTA neck with patent carotid arteries bilaterally. Stroke - MRI of the brain w/o contrast - Aspirin 325mg q day plus Lovenox 40mg - Consult Neurology for evaluation - Normal saline at 70ml/ hr - Neurochecks every 4 - PT/OT/ST eval. - Labs: lipid profile, hemoglobin A1c, CBC, CMP, Coagulation panel - head of the bed flat except for eating, elevate 30 degrees Hypertension Permissive HTN Vasotec PRN for systolic blood pressure >220 mmHg or diastolic blood pressure > 120 mmHg Continue home medications" Amlodipine 10mg qday, HCTZ 12.5mg daily, metoprolol tartrate 50mg BID Hyperlipidemia Lipid panel Continue Lovastatin 20mg po daily Will consider increasing to 40mg PO daily Diabetes HbA1C pending Low insulin SS per stroke protocol Hold Metformin 500mg PO BID Obesity BMI 43 FEN/DVT Passed bedside swallow evaluation Cardiac diet NS at 70ml/hr DVT prophylaxis: Lovenox 40mg SQ , plus SCDs <Kaitlin Oviedo - 12/29/17 11:44> Discharge Planning: Spoke with CM who state that patient is to be evaluated by [facility] for possible placement. <Kaitlin Oviedo - 12/29/17 11:44> - Attending Attestation Pt. examined and case discussed with resident physicians. I have read the above note and agree with the assessment and plan as discussed with me. I was involved in all medical decision making for this patient. Lexx Robles MD <Lexx Robles - 12/29/17 21:21> <[facility] Filed: 12/29/17 20:12> (1) Stroke Qualifiers: Laterality of affected vessel: left (2) Hypertension Qualifiers: Hypertension type: essential hypertension Qualified Code(s): I10 - Essential (primary) hypertension (4) Diabetes mellitus Qualifiers: Diabetes mellitus type: type 2 Diabetes mellitus complication status: with unspecified complications <Lexx Robles Last Filed: 12/29/17 21:21> (1) Stroke Qualifiers: Laterality of affected vessel: left (2) Hypertension Qualifiers: Hypertension type: essential hypertension Qualified Code(s): I10 - Essential (primary) hypertension (4) Diabetes mellitus Qualifiers: Diabetes mellitus type: type 2 Diabetes mellitus complication status: with unspecified complications [facility] Last Filed: 12/29/17 20:12> (1) Stroke Qualifiers: Laterality of affected vessel: left (2) Hypertension Qualifiers: Hypertension type: essential hypertension Qualified Code(s): I10 - Essential (primary) hypertension (4) Diabetes mellitus Qualifiers: Diabetes mellitus type: type 2 Diabetes mellitus complication status: with unspecified complications <[facility] Last Filed: 12/29/17 21:21> (1) Stroke Qualifiers: Laterality of affected vessel: left (2) Hypertension Qualifiers: Hypertension type: essential hypertension Qualified Code(s): I10 - Essential (primary) hypertension (4) Diabetes mellitus Qualifiers: Diabetes mellitus type: type 2 Diabetes mellitus complication status: with unspecified complications
[2017-12-29 09:01] LABS: Anion Gap 10 meq/L (5-15); Blood Urea Nitrogen 15 mg/dL (7-18); Calcium 8.5 mg/dL (8.5-10.1); Carbon Dioxide 24.5 meq/L (21.0-32.0); Chloride 102 meq/L (98-107); Glomerular Filtration Rate Greater Than 89 mL/min (>89); Glucose,Random 129 mg/dL (74-106); Potassium 3.4 meq/L (3.5-5.1); Sodium 136 meq/L (136-145)
[2017-12-29] MEDS: amLODIPine 10 MG Tablet PO SCH (09:28)
[2017-12-29] MEDS: Metoprolol Tartrate 50 MG Tablet PO SCH ×2 (09:28→22:00)
[2017-12-29] MEDS: Senna/Docusate Sodium 8.6/50 MG Tablet PO SCH ×2 (09:28→21:59)
--- NOTE | 2017-12-29 12:17 | ECHRPT ---
Indication: CONCLUSIONS Normal left ventricular size. Wall thickness is measured at the upper limits of normal. The left ventricular systolic function is normal with an estimated ejection fraction in the range of 60-65%. The left atrial size is mildly dilated. Normal left atrial appendage size with no evidence of thrombus formation. The velocities in the left atrial appendage are normal. No thrombus detected in the left atrial appendage. Normal atrial septal thickness without atrial level shunting by limited color doppler interrogation. Normal atrial septal thickness. No atrial level shunt is demonstrated by color flow Doppler or agitated saline imaging. The aortic root and proximal ascending aorta are not well visualized. Mildly dilated proximal ascending aorta. Mild thickening of the mitral valve leaflets. Trace mitral valve regurgitation. Mitral annular calcification is present. BP: / HR: Rhythm: MEASUREMENTS (Male / Female) Normal Values Technical Quality: 2D ECHO Aortic Root Diameter 4.0 cm DOPPLER Mitral E Point Velocity 104.0 cm/s Mitral E to A Ratio 1.4 Mitral A Point Velocity 76.8 cm/s Medications Complications Proc. Components FINDINGS LEFT VENTRICLE Normal left ventricular size. Wall thickness is measured at the upper limits of normal. The left ventricular systolic function is normal with an estimated ejection fraction in the range of 60-65%. RIGHT VENTRICLE Normal right ventricular size and systolic function. LEFT ATRIUM The left atrial size is mildly dilated. RIGHT ATRIUM The right atrial size is normal. ATRIAL APPENDAGES Normal left atrial appendage size with no evidence of thrombus formation. The velocities in the left atrial appendage are normal. No thrombus detected in the left atrial appendage. ATRIAL SEPTUM Normal atrial septal thickness without atrial level shunting by limited color doppler interrogation. Normal atrial septal thickness. No atrial level shunt is demonstrated by color flow Doppler or agitated saline imaging. AORTA The aortic root and proximal ascending aorta are not well visualized. Mildly dilated proximal ascending aorta. MITRAL VALVE Mild thickening of the mitral valve leaflets. Trace mitral valve regurgitation. Mitral annular calcification is present. AORTIC VALVE Trileaflet aortic valve. No aortic valve stenosis or regurgitation. TRICUSPID VALVE Structurally normal tricuspid valve. No tricuspid valve stenosis or regurgitation. VESSELS The inferior vena cava is normal in size. PULMONARY VALVE The pulmonary valve is not well visualized. PERICADIUM No pericardial effusion. Joao James MD, FACC (Electronically Signed) Final Date:29 December 2017 12:16
[2017-12-29] MEDS: Insulin NovoLOG Aspart Correctional Sugar Inj SQ SCH ×4 (13:00→22:00)
[2017-12-29] MEDS: Potassium Chloride 25 MEQ Effervescent Tablet PO SCH (13:01)
[2017-12-29] MEDS: Aspirin 325 MG Tablet PO SCH (13:01)
[2017-12-30] MEDS: Heparin - SQ 10,000 UNITS/ML Vial SQ SCH ×3 (05:00→23:14)
[2017-12-30] MEDS ORDERED: Chlorhexidine Gluconate 2% 1 Pack (2 Cloths) TOPICAL ONE (05:03)
[2017-12-30] MEDS ORDERED: Sodium Chlor 0.9% Inj 500 ML IV.SIG SCH (06:00)
[2017-12-30] MEDS: Sod Chloride 0.9% Inj 1,000 ML IV.CONT SCH ×2 (06:05→20:22)
[2017-12-30 07:31] LABS: Anion Gap 10 meq/L (5-15); Blood Urea Nitrogen 16 mg/dL (7-18); Calcium 8.3 mg/dL (8.5-10.1); Carbon Dioxide 23.9 meq/L (21.0-32.0); Chloride 103 meq/L (98-107); Glomerular Filtration Rate Greater Than 89 mL/min (>89); Glucose,Random 124 mg/dL (74-106); Potassium 3.3 meq/L (3.5-5.1); Sodium 137 meq/L (136-145)
[2017-12-30] MEDS: hydroCHLOROthiazide 25 MG Tablet PO SCH (08:10)
[2017-12-30] MEDS: Senna/Docusate Sodium 8.6/50 MG Tablet PO SCH ×2 (08:10→20:17)
[2017-12-30] MEDS: Metoprolol Tartrate 50 MG Tablet PO SCH (08:11)
[2017-12-30] MEDS: Potassium Chloride 25 MEQ Effervescent Tablet PO SCH (08:11)
[2017-12-30] MEDS: amLODIPine 10 MG Tablet PO SCH (08:11)
[2017-12-30] MEDS: Aspirin 325 MG Tablet PO SCH (08:11)
[2017-12-30] MEDS: Insulin NovoLOG Aspart Correctional Sugar Inj SQ SCH ×3 (08:20→23:12)
--- NOTE | 2017-12-30 09:06 | P.PNFP ---
Subjective Interval history: Doing well today, no complaints. BP 142-153 SBP overnight. <Bina Steel N - 12/30/17 15:13> Results - Labs Result diagrams: 12/29/17 07:36 12/30/17 06:22 <Lexx Robles - 12/30/17 16:34> Abnormal lab results 12/29/17 12/29/17 12/30/17 Range/Units 17:11 20:35 06:22 Potassium 3.3 L (3.5-5.1) meq/L POC Glucose 111 H 216 H (68-110) mg/dl Random Glucose 124 H (74-106) mg/dL Calcium 8.3 L (8.5-10.1) mg/dL 12/30/17 Range/Units 08:13 Potassium (3.5-5.1) meq/L POC Glucose 133 H (68-110) mg/dl Random Glucose (74-106) mg/dL Calcium (8.5-10.1) mg/dL BMP 12/30/17 06:22 Sodium 137 Potassium 3.3 L Chloride 103 Carbon Dioxide 23.9 BUN 16 Creatinine 0.86 Calcium 8.3 L <Lexx Robles - 12/30/17 16:34> Abnormal lab results 12/29/17 12/29/17 12/30/17 Range/Units 17:11 20:35 06:22 Potassium 3.3 L (3.5-5.1) meq/L POC Glucose 111 H 216 H (68-110) mg/dl Random Glucose 124 H (74-106) mg/dL Calcium 8.3 L (8.5-10.1) mg/dL 12/30/17 Range/Units 08:13 Potassium (3.5-5.1) meq/L POC Glucose 133 H (68-110) mg/dl Random Glucose (74-106) mg/dL Calcium (8.5-10.1) mg/dL BMP 12/30/17 06:22 Sodium 137 Potassium 3.3 L Chloride 103 Carbon Dioxide 23.9 BUN 16 Creatinine 0.86 Calcium 8.3 L <Bina Steel N - 12/30/17 09:06> Physical Exam Vital signs: Vital Signs 12/29/17 20:00 12/30/17 00:00 12/30/17 04:00 Temperature 98.3 F 97.8 F 97.9 F Pulse Rate 87 74 80 Respiratory Rate 18 18 18 Blood Pressure 142/68 H 153/96 H Pulse Oximetry 96 96 93 L 12/30/17 08:00 12/30/17 08:02 12/30/17 12:00 Temperature 98.6 F 98.3 F Pulse Rate 92 H 83 79 Respiratory Rate 18 18 Blood Pressure 96/63 L 155/91 H Pulse Oximetry 96 92 L 12/30/17 16:00 Temperature 99 F Pulse Rate 81 Respiratory Rate 18 Blood Pressure 134/78 Pulse Oximetry 97 Intake & Output 12/29/17 12/30/17 12/30/17 18:59 06:59 18:59 Intake Total 1969 1000 / 1000 50 / 50 Output Total 1300 / 1300 1100 / 1100 1300 / 1300 Balance 670 / 670 -100 / -100 -1250 / -1250 Intake: IV 1000 / 1000 1000 / 1000 50 / 50 NS Inj 1,000 ML @ 70 mls/hr IV. 1000 / 1000 1000 / 1000 CONT .[id number] [facility] Rx#:[id number] Ancef 2 GM Premix Inj 2 gm In 50 / 50 50 ml @ 100 mls/hr IV.SIG [employer] [facility] Rx#:[id number] Oral 250 / 250 Other 720 / 720 Output: Urine 1300 / 1300 1100 / 1100 1300 / 1300 Other: Other Intake Source Saline Solution Date of Last Bowel Movement 12/28/17 12/28/17 12/28/17 <Lexx Rolbes - 12/30/17 16:34> Vital Signs 12/29/17 16:33 12/29/17 20:00 12/30/17 00:00 Temperature 98.3 F 97.8 F Pulse Rate 78 87 74 Respiratory Rate 18 18 Blood Pressure 142/68 H Pulse Oximetry 96 96 12/30/17 04:00 Temperature 97.9 F Pulse Rate 80 Respiratory Rate 18 Blood Pressure 153/96 H Pulse Oximetry 93 L Intake & Output 12/29/17 12/30/17 12/30/17 18:59 06:59 18:59 Intake Total 1969 1000 / 1000 Output Total 1300 / 1300 1100 / 1100 Balance 670 / 670 -100 / -100 Intake: IV 1000 / 1000 1000 / 1000 NS Inj 1,000 ML @ 70 mls/hr IV. 1000 / 1000 1000 / 1000 CONT .[id number] [facility] Rx#:[id number] Oral 250 / 250 Other 720 / 720 Output: Urine 1300 / 1300 1100 / 1100 Other: Other Intake Source Saline Solution Date of Last Bowel Movement 12/28/17 12/28/17 <Bina Steel N - 12/30/17 09:06> Narrative: General:Obese male, sitting up in bed in no obvious distress. HEENT: Normocephalic, atraumatic. Extraocular muscles intact. Neuro: Awake, alert and oriented to person and place only. Seems somewhat confused, unsure of his baseline. Unable to move right upper extremity and minimal movement of right lower extremity. Sensation is lost over right upper and lower extremities. CV: Regular rate and rhythm; 2/6 systolic murmur. Lungs: Clear to auscultate bilaterally, nonlabored breathing on room air, no wheezing,rhonchi or crackles. No accessory muscle use. Abdomen: Positive bowel sound. Obese but soft, nontender. Anterior abdominal wall hernia without tenderness, discoloration, or tenderness. MSK: stasis dermatitis in lower extremities bilaterally. <MilviaMattBina N - 12/30/17 15:13> Assessment and Plan - Assessment (1) Stroke Code(s): I63.9 - Cerebral infarction, unspecified Status: Acute (2) Hypertension Code(s): I10 - Essential (primary) hypertension Status: Chronic (3) Hyperlipidemia Code(s): E78.5 - Hyperlipidemia, unspecified Status: Chronic (4) Diabetes mellitus Code(s): E11.9 - Type 2 diabetes mellitus without complications Status: Acute (5) Hx of completed stroke Code(s): Z86.73 - Personal history of transient ischemic attack (TIA), and cerebral infarction without residual deficits Status: Chronic (6) Obesities, morbid Code(s): E66.01 - Morbid (severe) obesity due to excess calories Status: Acute (7) Nutrition, metabolism, and development symptoms Code(s): R63.8 - Other symptoms and signs concerning food and fluid intake Status: Acute (8) DVT prophylaxis Status: Acute <Lexx Robles - 12/30/17 16:34> (1) Stroke Code(s): I63.9 - Cerebral infarction, unspecified Status: Acute Plan: Brain MRI: Large area of acute infarction left posterior parietal lobe extending into the periventricular regions without hemorrhage or mass-effect. Continued neuro checks. Aspirin 325 mg daily. Prevastatin 40mg PO HS. Cardio and Nu[place] following PT/OT recommend therapy while inpatient and at rehab. CM involved to assist with placement. (2) Hypertension Code(s): I10 - Essential (primary) hypertension Status: Chronic Plan: At home, takes meds amlodipine 10 mg daily and metoprolol 50 mg twice daily. HCTZ to 25mg daily Increase metoprolol to100 mg daily Vasotec 1.25mg IV q6hr PRN BP >170/100. Monitor. (3) Hyperlipidemia Code(s): E78.5 - Hyperlipidemia, unspecified Status: Chronic Plan: Lipid panel: total cholesterol 145, LDL 88, HDL 30, triglycerides 133. Patient continue high intensity statin treatment as above. (4) Diabetes mellitus Code(s): E11.9 - Type 2 diabetes mellitus without complications Status: Acute Plan: Patient with history of diabetes. Hgb A1C 8.6. Monitor blood sugars. Controlled on low insulin sliding scale per protocol. Holding home metformin. (5) Hx of completed stroke Code(s): Z86.73 - Personal history of transient ischemic attack (TIA), and cerebral infarction without residual deficits Status: Chronic Plan: See management for acute stroke. (6) Obesities, morbid Code(s): E66.01 - Morbid (severe) obesity due to excess calories Status: Acute Plan: Consider nutrition consult prior to discharge. (7) Nutrition, metabolism, and development symptoms Code(s): R63.8 - Other symptoms and signs concerning food and fluid intake Status: Acute Plan: Fluids: * Tolerating PO. Electrolytes: * Monitor and replete as necessary. Nutrition: * Mechanical soft and thin liquids restarted per speech therapy consult (8) DVT prophylaxis Status: Acute Plan: Heparin 5,000 units SQ q8hr. SCDs. <Bina Steel - 12/30/17 15:00> - Assessment and Plan 52-year-old male presenting to the emergency department 6 hours after feeling his right leg and right arm feel heavy, as well as right lower extremity weakness and inability to walk. CT head with not acute bleed, CTA head showing atherosclerotic disease without stenosis, and CTA neck with patent carotid arteries bilaterally. Stroke - MRI of the brain w/o contrast - Aspirin 325mg q day plus Lovenox 40mg - Consult Neurology for evaluation - Neurochecks every 4 - PT/OT/ST eval. - Labs: lipid profile, hemoglobin A1c, CBC, CMP, Coagulation panel - head of the bed flat except for eating, elevate 30 degrees Hypertension Permissive HTN Vasotec PRN for systolic blood pressure >220 mmHg or diastolic blood pressure > 120 mmHg Continue home medications" Amlodipine 10mg qday, HCTZ 12.5mg daily, metoprolol tartrate 100mg BID Hyperlipidemia Lipid panel Continue Lovastatin 20mg po daily Will consider increasing to 40mg PO daily Diabetes HbA1C pending Low insulin SS per stroke protocol Hold Metformin 500mg PO BID Obesity BMI 43 FEN/DVT Passed bedside swallow evaluation [facility] soft and thin liquid diet DVT prophylaxis: Lovenox 40mg SQ , plus SCDs <Bina Steel - 12/30/17 15:13> - Attending Attestation Patient case discussed with resident physicians I have independently examined the patient I have read the above note and agree with the assessment and plan as discussed with me I was involved in all medical decision making for this patient Lexx oRbles MD <Lexx Robles - 12/30/17 16:34> <Bina Steel N - Last Filed: 12/30/17 15:00> (1) Stroke Qualifiers: Laterality of affected vessel: left (2) Hypertension Qualifiers: Hypertension type: essential hypertension Qualified Code(s): I10 - Essential (primary) hypertension (4) Diabetes mellitus Qualifiers: Diabetes mellitus type: type 2 Diabetes mellitus complication status: with unspecified complications <Lexx Robles - Last Filed: 12/30/17 16:34> (1) Stroke Qualifiers: Laterality of affected vessel: left (2) Hypertension Qualifiers: Hypertension type: essential hypertension Qualified Code(s): I10 - Essential (primary) hypertension (4) Diabetes mellitus Qualifiers: Diabetes mellitus type: type 2 Diabetes mellitus complication status: with unspecified complications <Bina Steel - Last Filed: 12/30/17 15:00> (1) Stroke Qualifiers: Laterality of affected vessel: left (2) Hypertension Qualifiers: Hypertension type: essential hypertension Qualified Code(s): I10 - Essential (primary) hypertension (4) Diabetes mellitus Qualifiers: Diabetes mellitus type: type 2 Diabetes mellitus complication status: with unspecified complications <Lexx Robles - Last Filed: 12/30/17 16:34> (1) Stroke Qualifiers: Laterality of affected vessel: left (2) Hypertension Qualifiers: Hypertension type: essential hypertension Qualified Code(s): I10 - Essential (primary) hypertension (4) Diabetes mellitus Qualifiers: Diabetes mellitus type: type 2 Diabetes mellitus complication status: with unspecified complications
--- NOTE | 2017-12-30 10:47 | P.PNCA ---
Subjective Interval history: no complaints Medications and Allergies Active Medications: Active Medications Acetaminophen (Tylenol) 650 mg PO Q4H PRN PRN Reason: Temp > 100.4 Amlodipine Besylate (Norvasc) 10 mg PO DAILY [facility] Last Admin: 12/30/17 08:11 Dose: 10 mg Aspirin (Aspirin) 325 mg PO DAILY [facility] Last Admin: 12/30/17 08:11 Dose: 325 mg Dextrose (D50w Vial) 50 ml IV.PUSH UNSCH PRN PRN Reason: per Hypoglycemic Protocol Enalaprilat (Vasotec Inj) 1.25 mg IV.PUSH Q6H PRN PRN Reason: BP > 170/100 Glucagon (Glucagon Inj) 1 mg OTHER UNSCH PRN PRN Reason: per Hypoglycemic Protocol Heparin Sodium (Porcine) (Heparin Inj) 5,000 units SQ Q8HR [facility] Last Admin: 12/30/17 05:00 Dose: Not Given Hydrochlorothiazide (Hydrodiuril) 25 mg PO DAILY [facility] Last Admin: 12/30/17 08:10 Dose: 25 mg Sodium Chloride (Ns Inj) 1,000 mls @ 70 mls/hr IV.CONT .[id number] [facility] Last Admin: 12/30/17 06:05 Dose: 70 mls/hr Sodium Chloride (Ns Inj) 1,000 mls @ 0 mls/hr IV.SIG BOLUS [facility] Sodium Chloride (Ns Inj) 500 mls @ 30 mls/hr IV.SIG .Q10H [facility] Last Admin: 12/29/17 15:48 Dose: Not Given Lactated Ringer's (Lr 1000 Ml Inj) 1,000 mls @ 30 mls/hr IV.SIG .Q24H [facility] Stop: 12/31/17 05:14 Sodium Chloride (Ns Inj) 500 mls @ 30 mls/hr IV.SIG .Q10H [facility] Insulin Aspart (Novolog Insulin Correctional Sugar Inj) 0 unit SQ ACHS [facility]; Protocol Last Admin: 12/30/17 08:20 Dose: Not Given Metoprolol Tartrate (Lopressor) 50 mg PO BID [facility] Last Admin: 12/30/17 08:11 Dose: 50 mg Ondansetron HCl (Zofran Inj) 4 mg IV.PUSH Q6H PRN PRN Reason: NAUSEA OR VOMITING Potassium Bicarb/Potassium Chloride (K-Lyte Cl Eff) 25 meq PO DAILY [facility] Last Admin: 12/30/17 08:11 Dose: 25 meq Pravastatin Sodium (Pravachol) 40 mg PO HS [facility] Last Admin: 12/29/17 21:59 Dose: 40 mg Senna/Docusate Sodium (April-Colace) 1 tab PO BID [facility] Last Admin: 12/30/17 08:10 Dose: 1 tab Allergies Allergy/AdvReac Type Severity Reaction Status Date / Time No Known Allergies Allergy Uncoded 04/20/14 16:30 Home Medications Medication Instructions Recorded Confirmed Type amlodipine 10 mg PO DAILY 12/26/17 12/26/17 History hydrochlorothiazide 12.5 mg PO DAILY 12/26/17 12/26/17 History lovastatin 20 mg PO DAILY 12/26/17 12/26/17 History metformin 500 mg PO BID 12/26/17 12/26/17 History metoprolol tartrate 50 mg PO BID 12/26/17 12/26/17 History Physical Exam Vital signs: Vital Signs 12/29/17 16:33 12/29/17 20:00 12/30/17 00:00 Temperature 98.3 F 97.8 F Pulse Rate 78 87 74 Respiratory Rate 18 18 Blood Pressure 142/68 H Pulse Oximetry 96 96 12/30/17 04:00 12/30/17 08:00 Temperature 97.9 F 98.6 F Pulse Rate 80 92 H Respiratory Rate 18 18 Blood Pressure 153/96 H 96/63 L Pulse Oximetry 93 L 96 Intake & Output 12/29/17 12/30/17 12/30/17 18:59 06:59 18:59 Intake Total 1969 / 1969 1000 / 1000 Output Total 1300 / 1300 1100 / 1100 300 / 300 Balance 670 / 670 -100 / -100 -300 / -300 Intake: IV 1000 / 1000 1000 / 1000 NS Inj 1,000 ML @ 70 mls/hr IV. 1000 / 1000 1000 / 1000 CONT .[id number] [facility] Rx#:[id number] Oral 250 / 250 Other 720 / 720 Output: Urine 1300 / 1300 1100 / 1100 300 / 300 Other: Other Intake Source Saline Solution Date of Last Bowel Movement 12/28/17 12/28/17 - Constitutional no acute distress - Routine HEENT Exam ENT: Present: mucous membranes moist - Routine Neck Exam Absent: JVD - Routine Respiratory Exam Present: CTA bilaterally - Routine Cardiovascular Exam Present: RRR - Routine Abdominal Exam Present: soft, normoactive bowel sounds Results 12/29/17 07:36 12/30/17 06:22 CBC 12/29/17 Range/Units 07:36 WBC 12.6 H (4.0-11.0) th/mm3 RBC 5.13 (4.50-5.90) mil/mm3 Hgb 15.1 (13.0-17.0) gm/dL Hct 44.0 (39.0-51.0) % Plt Count 226 (150-450) th/mm3 Comprehensive Metabolic Panel 12/29/17 12/30/17 Range/Units 07:36 06:22 Sodium 136 137 (136-145) meq/L Potassium 3.4 L 3.3 L (3.5-5.1) meq/L Chloride 102 103 (98-107) meq/L Carbon Dioxide 24.5 23.9 (21.0-32.0) meq/L BUN 15 16 (7-18) mg/dL Creatinine 0.85 0.86 (0.60-1.30) mg/dL Calcium 8.5 8.3 L (8.5-10.1) mg/dL Intake and Output 12/29/17 12/30/17 12/30/17 22:59 06:59 14:59 Intake Total 1969 / 1969 1000 / 1000 Output Total 1300 / 1300 1100 / 1100 300 / 300 Balance 670 / 670 -100 / -100 -300 / -300 Intake: IV 1000 / 1000 1000 / 1000 NS Inj 1,000 ML @ 70 mls/hr IV. 1000 / 1000 1000 / 1000 CONT .[id number] [facility] Rx#:[id number] Oral 250 / 250 Other 720 / 720 Output: Urine 1300 / 1300 1100 / 1100 300 / 300 Other: Other Intake Source Saline Solution Date of Last Bowel Movement 12/28/17 Assessment and Plan - Assessment (1) Hypertension Code(s): I10 - Essential (primary) hypertension Status: Chronic (2) Stroke Code(s): I63.9 - Cerebral infarction, unspecified Status: Acute - Plan 52 yo obese male tobacco user with HTN, HLD, DMII, reported history of prior stroke and cardiomyopathy who presents with sudden onset unilateral leg and arm weakness and dysarthria. Patient lives at home and provides limited history at time of exam. MRI reveals large area of acute infarction L posterior parietal lobe extending into the periventricular regions without mass or hemorrhage. CVA - WINIFRED negative for PFO or DANIE clot NPO p breakfast Loop recorder this afternoon then DC planning (1) Hypertension Qualifiers: Hypertension type: essential hypertension Qualified Code(s): I10 - Essential (primary) hypertension (2) Stroke Qualifiers: Laterality of affected vessel: left
[2017-12-30] MEDS ORDERED: Mupirocin 2% Nasal Oint Topical Syringe EACH NARE SCH (12:45)
[2017-12-30] MEDS ORDERED: ceFAZolin 2 GM Premix Inj 2 GM/50 ML PIGGYBACK IV.SIG SCH (13:00)
--- NOTE | 2017-12-30 14:13 | MP ---
cc: Mariano Bingham DO DATE OF OPERATION: 12/30/2017 DATE OF PROCEDURE: 12/30/2017 SURGEON: Mariano Bingham DO PROCEDURE PERFORMED: Implantation of Medtronic Reveal LINQ loop recorder. DESCRIPTION OF PROCEDURE: The patient was taken to the DOCU and a timeout was taken in order to verify the patient and procedure. Consent was obtained by the patient following discussion of the risks, benefits and alternatives of the procedure and was placed in the chart. The patient was prepped and draped in the usual sterile fashion. The left anterior chest wall was anesthetized with 2% lidocaine. A small incision was made. A pocket was opened. We used local anesthetic only. No conscious sedation. An implantable loop recorder was inserted at a 45-degree angle to the left nipple. The device was interrogated with a 0.33 millivolt R-wave at the time of insertion. The pocket was then closed using Dermabond and a Telfa pad, Tegaderm was placed. The patient tolerated the procedure well without any difficulties. ANTIBIOTICS: Ancef 2 intravenously was administered. DEVICE INFORMATION: Medtronic Reveal LINQ, serial #[id number]. Bradycardia setting of 40 and tachycardia setting of 154 beats. The patient was provided a Tolerx model 70633 [employer] patient monitor, serial #[id number]. Mariano Bingham DO [facility]/ , 01:53 PM , 02:00 PM
[2017-12-30] MEDS: Metoprolol Tartrate 100 MG Tablet PO SCH (20:18)
[2017-12-31] MEDS: Heparin - SQ 10,000 UNITS/ML Vial SQ SCH ×3 (05:31→22:34)
[2017-12-31] MEDS: hydroCHLOROthiazide 25 MG Tablet PO SCH (08:04)
[2017-12-31] MEDS: Potassium Chloride 25 MEQ Effervescent Tablet PO SCH (08:05)
[2017-12-31] MEDS: Aspirin 325 MG Tablet PO SCH (08:05)
[2017-12-31] MEDS: Senna/Docusate Sodium 8.6/50 MG Tablet PO SCH ×2 (08:05→20:53)
[2017-12-31] MEDS: amLODIPine 10 MG Tablet PO SCH (08:05)
[2017-12-31] MEDS: Metoprolol Tartrate 100 MG Tablet PO SCH ×2 (08:05→20:53)
[2017-12-31 09:45] LABS: Anion Gap 9 meq/L (5-15); Blood Urea Nitrogen 16 mg/dL (7-18); Calcium 8.4 mg/dL (8.5-10.1); Carbon Dioxide 24.1 meq/L (21.0-32.0); Chloride 102 meq/L (98-107); Glomerular Filtration Rate Greater Than 89 mL/min (>89); Glucose,Random 131 mg/dL (74-106); Potassium 3.2 meq/L (3.5-5.1); Sodium 135 meq/L (136-145)
[2017-12-31] MEDS: Sod Chloride 0.9% Inj 1,000 ML IV.CONT SCH (11:09)
--- NOTE | 2017-12-31 15:55 | P.PNFP ---
Subjective Interval history: No new concerns or complaints this AM. Results - Labs Result diagrams: 12/29/17 07:36 12/31/17 08:17 Abnormal lab results 12/30/17 12/31/17 12/31/17 Range/Units 22:07 07:56 08:17 Sodium 135 L (136-145) meq/L Potassium 3.2 L (3.5-5.1) meq/L POC Glucose 118 H 126 H (68-110) mg/dl Random Glucose 131 H (74-106) mg/dL Calcium 8.4 L (8.5-10.1) mg/dL 12/31/17 Range/Units 12:28 Sodium (136-145) meq/L Potassium (3.5-5.1) meq/L POC Glucose 113 H (68-110) mg/dl Random Glucose (74-106) mg/dL Calcium (8.5-10.1) mg/dL BMP 12/31/17 08:17 Sodium 135 L Potassium 3.2 L Chloride 102 Carbon Dioxide 24.1 BUN 16 Creatinine 0.79 Calcium 8.4 L Physical Exam Vital signs: Vital Signs 12/30/17 16:00 12/30/17 19:53 12/30/17 20:00 Temperature 99 F 97.9 F Pulse Rate 81 85 91 H Respiratory Rate 18 18 Blood Pressure 134/78 138/78 Pulse Oximetry 97 96 12/31/17 00:00 12/31/17 00:11 12/31/17 04:00 Temperature 98.9 F 98.0 F Pulse Rate 70 70 84 Respiratory Rate 18 18 Blood Pressure 120/70 150/85 H Pulse Oximetry 97 96 12/31/17 08:00 12/31/17 12:00 Temperature 98.8 F 99 F Pulse Rate 83 70 Respiratory Rate 21 20 Blood Pressure 190/113 H 156/90 H Pulse Oximetry Intake & Output 12/30/17 12/31/17 12/31/17 18:59 06:59 18:59 Intake Total 1250 / 1250 1633 / 1633 367 / 367 Output Total 2700 / 2700 1000 / 1000 1100 / 1100 Balance -1450 / -1450 633 / 633 -733 / -733 Intake: IV 50 / 50 1633 / 1633 367 / 367 NS Inj 1,000 ML @ 70 mls/hr IV. 1633 / 1633 367 / 367 CONT .[id number] [facility] Rx#:[id number] Ancef 2 GM Premix Inj 2 gm In 50 / 50 50 ml @ 100 mls/hr IV.SIG PHOTOSTATIC COPY [employer] [facility] Rx#:[id number] Oral 480 / 480 Other 720 / 720 Output: Urine 2700 / 2700 1000 / 1000 1100 / 1100 Other: Other Intake Source Saline Solution Date of Last Bowel Movement 12/28/17 12/28/17 Narrative: General:Obese male, sitting up in bed in no obvious distress. HEENT: Normocephalic, atraumatic. Extraocular muscles intact. Neuro: No new focal deficits. CV: Regular rate and rhythm; 2/6 systolic murmur. Lungs: Clear to auscultate bilaterally, nonlabored breathing on room air, no wheezing,rhonchi or crackles. No accessory muscle use. Abdomen: Positive bowel sound. Obese but soft, nontender. Anterior abdominal wall hernia without tenderness, discoloration, or tenderness. MSK: stasis dermatitis in lower extremities bilaterally. Assessment and Plan - Assessment (1) Stroke Code(s): I63.9 - Cerebral infarction, unspecified Status: Acute Plan: Brain MRI: Large area of acute infarction left posterior parietal lobe extending into the periventricular regions without hemorrhage or mass-effect. Continued neuro checks. Aspirin 325 mg daily. Prevastatin 40mg PO HS. Cardio and Nuero following. Spoke w/Dr. Corrales, no plans for further anticoagulation at this time. PT/OT recommend therapy while inpatient and at rehab. CM involved to assist with placement. (2) Hypertension Code(s): I10 - Essential (primary) hypertension Status: Chronic Plan: At home, takes meds amlodipine 10 mg daily and metoprolol 50 mg twice daily. Not optimally controlled. HCTZ 25mg daily metoprolol 100 mg daily Add lisinopril 5 mg daily Vasotec 1.25mg IV q6hr PRN BP >170/100. Monitor (3) Hyperlipidemia Code(s): E78.5 - Hyperlipidemia, unspecified Status: Chronic Plan: Lipid panel: total cholesterol 145, LDL 88, HDL 30, triglycerides 133. Patient continue high intensity statin treatment as above. (4) Diabetes mellitus Code(s): E11.9 - Type 2 diabetes mellitus without complications Status: Acute Plan: Patient with history of diabetes. Hgb A1C 8.6. Monitor blood sugars. Controlled on low insulin sliding scale per protocol. Holding home metformin. (5) Hx of completed stroke Code(s): Z86.73 - Personal history of transient ischemic attack (TIA), and cerebral infarction without residual deficits Status: Chronic Plan: See management for acute stroke. (6) Obesities, morbid Code(s): E66.01 - Morbid (severe) obesity due to excess calories Status: Acute Plan: Consider nutrition consult prior to discharge. (7) Nutrition, metabolism, and development symptoms Code(s): R63.8 - Other symptoms and signs concerning food and fluid intake Status: Acute Plan: Fluids: * Tolerating PO. Electrolytes: * Monitor and replete as necessary. Nutrition: * Mechanical soft and thin liquids restarted per speech therapy consult (8) DVT prophylaxis Status: Acute Plan: Heparin 5,000 units SQ q8hr. SCDs. - Assessment and Plan 52-year-old male presenting to the emergency department 6 hours after feeling his right leg and right arm feel heavy, as well as right lower extremity weakness and inability to walk. CT head with not acute bleed, CTA head showing atherosclerotic disease without stenosis, and CTA neck with patent carotid arteries bilaterally. Stroke - MRI of the brain w/o contrast - Aspirin 325mg q day plus Lovenox 40mg - Consult Neurology for evaluation - Neurochecks every 4 - PT/OT/ST eval. - Labs: lipid profile, hemoglobin A1c, CBC, CMP, Coagulation panel - head of the bed flat except for eating, elevate 30 degrees Hypertension Permissive HTN Vasotec PRN for systolic blood pressure >220 mmHg or diastolic blood pressure > 120 mmHg Continue home medications" Amlodipine 10mg qday, HCTZ 12.5mg daily, metoprolol tartrate 100mg BID Hyperlipidemia Lipid panel Continue Lovastatin 20mg po daily Will consider increasing to 40mg PO daily Diabetes HbA1C pending Low insulin SS per stroke protocol Hold Metformin 500mg PO BID Obesity BMI 43 FEN/DVT Passed bedside swallow evaluation [facility] soft and thin liquid diet DVT prophylaxis: Lovenox 40mg SQ , plus SCDs (1) Stroke Qualifiers: Laterality of affected vessel: left (2) Hypertension Qualifiers: Hypertension type: essential hypertension Qualified Code(s): I10 - Essential (primary) hypertension (4) Diabetes mellitus Qualifiers: Diabetes mellitus type: type 2 Diabetes mellitus complication status: with unspecified complications
[2017-12-31] MEDS: Insulin NovoLOG Aspart Correctional Sugar Inj SQ SCH ×3 (20:06→22:14)
[2017-12-31] MEDS ORDERED: Melatonin 5 MG Tablet PO ONE (21:27)
[2018-01-01] MEDS: Sod Chloride 0.9% Inj 1,000 ML IV.CONT SCH ×2 (01:37→17:14)
[2018-01-01 07:37] LABS: Hematocrit 41.2 % (39.0-51.0); Hemoglobin 13.9 gm/dL (13.0-17.0); Mean Corpuscular HGB Conc 33.7 % (32.0-36.0); Mean Corpuscular Volume 85.8 fL (80.0-100.0); Mean Platelet Volume 8.9 fL (7.0-11.0); Platelet Count 252 th/mm3 (150-450); Red Cell Distribution Width 13.5 % (11.6-17.2); White Blood Count 13.1 th/mm3 (4.0-11.0)
[2018-01-01 08:02] LABS: Anion Gap 10 meq/L (5-15); Blood Urea Nitrogen 17 mg/dL (7-18); Calcium 8.2 mg/dL (8.5-10.1); Carbon Dioxide 24.2 meq/L (21.0-32.0); Chloride 99 meq/L (98-107); Glomerular Filtration Rate Greater Than 89 mL/min (>89); Glucose,Random 120 mg/dL (74-106); Potassium 3.2 meq/L (3.5-5.1); Sodium 133 meq/L (136-145)
[2018-01-01] MEDS: Heparin - SQ 10,000 UNITS/ML Vial SQ SCH ×3 (08:41→21:05)
[2018-01-01] MEDS: Insulin NovoLOG Aspart Correctional Sugar Inj SQ SCH ×4 (08:42→23:15)
[2018-01-01] MEDS: hydroCHLOROthiazide 25 MG Tablet PO SCH (08:46)
[2018-01-01] MEDS: Potassium Chloride 25 MEQ Effervescent Tablet PO SCH (08:46)
[2018-01-01] MEDS: Lisinopril 5 MG Tablet PO SCH (08:46)
[2018-01-01] MEDS: Aspirin 325 MG Tablet PO SCH (08:46)
[2018-01-01] MEDS: Senna/Docusate Sodium 8.6/50 MG Tablet PO SCH ×2 (08:46→21:04)
[2018-01-01] MEDS: Metoprolol Tartrate 100 MG Tablet PO SCH ×2 (08:46→21:04)
[2018-01-01] MEDS: amLODIPine 10 MG Tablet PO SCH (08:46)
--- NOTE | 2018-01-01 12:13 | P.PNFP ---
Addendum entered and electronically signed by Bina Steel MD, R2 01/01/18 17 :05: ready for discharge, no further eval or work-up to pursue. Has been declined for acceptance by [facility]. Contacted case management for assistance in discharge. Original Note: Subjective Interval history: No new complaints. <Bina Steel - 01/01/18 12:12> Results - Labs Result diagrams: 01/01/18 06:39 01/01/18 06:39 <Lexx Robles - 01/01/18 21:58> Abnormal lab results 01/01/18 01/01/18 01/01/18 Range/Units 06:39 06:39 07:40 WBC 13.1 H (4.0-11.0) th/mm3 Sodium 133 L (136-145) meq/L Potassium 3.2 L (3.5-5.1) meq/L POC Glucose 114 H (68-110) mg/dl Random Glucose 120 H (74-106) mg/dL Calcium 8.2 L (8.5-10.1) mg/dL 01/01/18 01/01/18 01/01/18 Range/Units 11:39 16:43 21:12 WBC (4.0-11.0) th/mm3 Sodium (136-145) meq/L Potassium (3.5-5.1) meq/L POC Glucose 154 H 140 H 180 H (68-110) mg/dl Random Glucose (74-106) mg/dL Calcium (8.5-10.1) mg/dL Short CBC 01/01/18 Range/Units 06:39 WBC 13.1 H (4.0-11.0) th/mm3 Hgb 13.9 (13.0-17.0) gm/dL Hct 41.2 (39.0-51.0) % Plt Count 252 (150-450) th/mm3 BMP 01/01/18 06:39 Sodium 133 L Potassium 3.2 L Chloride 99 Carbon Dioxide 24.2 BUN 17 Creatinine 0.79 Calcium 8.2 L <Lexx Robles - 01/01/18 21:58> Abnormal lab results 12/31/17 12/31/17 12/31/17 Range/Units 12:28 17:59 21:33 WBC (4.0-11.0) th/mm3 Sodium (136-145) meq/L Potassium (3.5-5.1) meq/L POC Glucose 113 H 115 H 136 H (68-110) mg/dl Random Glucose (74-106) mg/dL Calcium (8.5-10.1) mg/dL 01/01/18 01/01/18 01/01/18 Range/Units 06:39 06:39 07:40 WBC 13.1 H (4.0-11.0) th/mm3 Sodium 133 L (136-145) meq/L Potassium 3.2 L (3.5-5.1) meq/L POC Glucose 114 H (68-110) mg/dl Random Glucose 120 H (74-106) mg/dL Calcium 8.2 L (8.5-10.1) mg/dL 01/01/18 Range/Units 11:39 WBC (4.0-11.0) th/mm3 Sodium (136-145) meq/L Potassium (3.5-5.1) meq/L POC Glucose 154 H (68-110) mg/dl Random Glucose (74-106) mg/dL Calcium (8.5-10.1) mg/dL Short CBC 01/01/18 Range/Units 06:39 WBC 13.1 H (4.0-11.0) th/mm3 Hgb 13.9 (13.0-17.0) gm/dL Hct 41.2 (39.0-51.0) % Plt Count 252 (150-450) th/mm3 BMP 01/01/18 06:39 Sodium 133 L Potassium 3.2 L Chloride 99 Carbon Dioxide 24.2 BUN 17 Creatinine 0.79 Calcium 8.2 L <Bina Steel N - 01/01/18 12:12> Physical Exam Vital signs: Vital Signs 01/01/18 00:00 01/01/18 05:04 01/01/18 08:00 Temperature 99 F 98.4 F 98.1 F Pulse Rate 71 77 93 H Respiratory Rate 18 18 20 Blood Pressure 143/85 H 140/71 193/86 H Pulse Oximetry 95 95 97 01/01/18 09:48 01/01/18 12:00 01/01/18 16:00 Temperature 98.5 F 98.3 F Pulse Rate 93 H 67 95 H Respiratory Rate 20 20 Blood Pressure 135/82 120/55 L Pulse Oximetry 95 96 01/01/18 20:00 Temperature 98.0 F Pulse Rate 72 Respiratory Rate 18 Blood Pressure 149/85 H Pulse Oximetry 96 Intake & Output 01/01/18 01/01/18 01/02/18 06:59 18:59 06:59 Intake Total 1300 / 1300 200 / 200 Output Total 1400 / 1400 1301 / 1301 450 / 450 Balance -100 / -100 -1301 / -1301 -250 / -250 Intake: IV 1000 / 1000 NS Inj 1,000 ML @ 70 mls/hr IV. 1000 / 1000 CONT .[id number] [facility] Rx#:[id number] Oral 300 / 300 200 / 200 Output: Urine 1400 / 1400 1300 / 1300 450 / 450 Stool Other: Date of Last Bowel Movement 01/01/18 01/01/18 <Lexx Robles - 01/01/18 21:58> Vital Signs 12/31/17 16:00 12/31/17 19:44 01/01/18 00:00 Temperature 99.3 F 100.6 F H 99 F Pulse Rate 82 87 71 Respiratory Rate 18 18 18 Blood Pressure 154/76 H 168/94 H 143/85 H Pulse Oximetry 97 96 95 01/01/18 05:04 01/01/18 08:00 01/01/18 09:48 Temperature 98.4 F 98.1 F Pulse Rate 77 93 H 93 H Respiratory Rate 18 20 Blood Pressure 140/71 193/86 H Pulse Oximetry 95 97 01/01/18 12:00 Temperature 98.5 F Pulse Rate 67 Respiratory Rate 20 Blood Pressure 135/82 Pulse Oximetry 95 Intake & Output 12/31/17 01/01/18 01/01/18 18:59 06:59 18:59 Intake Total 967 / 967 1300 / 1300 Output Total 1750 / 1750 1400 / 1400 400 / 400 Balance -783 / -783 -100 / -100 -400 / -400 Intake: IV 367 / 367 1000 / 1000 NS Inj 1,000 ML @ 70 mls/hr IV. 367 / 367 1000 / 1000 CONT .[id number] [facility] Rx#:[id number] Oral 600 / 600 300 / 300 Output: Urine 1750 / 1750 1400 / 1400 400 / 400 Other: Date of Last Bowel Movement 12/28/17 12/28/17 # Bowel Movements 0 <Bina Steel N - 01/01/18 12:12> Narrative: General:Obese male, sitting up in bed in no obvious distress. HEENT: Normocephalic, atraumatic. Extraocular muscles intact. Neuro: No new focal deficits. CV: Regular rate and rhythm; 2/6 systolic murmur. Lungs: Clear to auscultate bilaterally, nonlabored breathing on room air, no wheezing,rhonchi or crackles. No accessory muscle use. Abdomen: Positive bowel sound. Obese but soft, nontender. Anterior abdominal wall hernia without tenderness, discoloration, or tenderness. MSK: stasis dermatitis in lower extremities bilaterally. <Bina Steel N - 01/01/18 12:12> Assessment and Plan - Assessment (1) Stroke Code(s): I63.9 - Cerebral infarction, unspecified Status: Acute (2) Hypertension Code(s): I10 - Essential (primary) hypertension Status: Chronic (3) Hyperlipidemia Code(s): E78.5 - Hyperlipidemia, unspecified Status: Chronic (4) Diabetes mellitus Code(s): E11.9 - Type 2 diabetes mellitus without complications Status: Acute (5) Hx of completed stroke Code(s): Z86.73 - Personal history of transient ischemic attack (TIA), and cerebral infarction without residual deficits Status: Chronic (6) Obesities, morbid Code(s): E66.01 - Morbid (severe) obesity due to excess calories Status: Acute (7) Nutrition, metabolism, and development symptoms Code(s): R63.8 - Other symptoms and signs concerning food and fluid intake Status: Acute (8) DVT prophylaxis Status: Acute <Lexx Robles - 01/01/18 21:58> (1) Stroke Code(s): I63.9 - Cerebral infarction, unspecified Status: Acute Plan: Brain MRI: Large area of acute infarction left posterior parietal lobe extending into the periventricular regions without hemorrhage or mass-effect. Continued neuro checks. Aspirin 325 mg daily. Prevastatin 40mg PO HS. Cardio and Nuero following. Spoke w/Dr. Corrales, no plans for further anticoagulation at this time. PT/OT recommend therapy while inpatient and at rehab. CM involved to assist with placement to SNF (2) Hypertension Code(s): I10 - Essential (primary) hypertension Status: Chronic Plan: At home, takes meds amlodipine 10 mg daily and metoprolol 50 mg twice daily. HCTZ 25mg daily metoprolol 100 mg daily Add lisinopril 5 mg daily Vasotec 1.25mg IV q6hr PRN BP >170/100. Monitor (3) Hyperlipidemia Code(s): E78.5 - Hyperlipidemia, unspecified Status: Chronic Plan: Lipid panel: total cholesterol 145, LDL 88, HDL 30, triglycerides 133. Patient continue high intensity statin treatment as above. (4) Diabetes mellitus Code(s): E11.9 - Type 2 diabetes mellitus without complications Status: Acute Plan: Patient with history of diabetes. Hgb A1C 8.6. Monitor blood sugars. Controlled on low insulin sliding scale per protocol. Holding home metformin. (5) Hx of completed stroke Code(s): Z86.73 - Personal history of transient ischemic attack (TIA), and cerebral infarction without residual deficits Status: Chronic Plan: See management for acute stroke. (6) Obesities, morbid Code(s): E66.01 - Morbid (severe) obesity due to excess calories Status: Acute Plan: Consider nutrition consult prior to discharge. (7) Nutrition, metabolism, and development symptoms Code(s): R63.8 - Other symptoms and signs concerning food and fluid intake Status: Acute Plan: Fluids: * Tolerating PO. Electrolytes: * Monitor and replete as necessary. Nutrition: * Mechanical soft and thin liquids restarted per speech therapy consult (8) DVT prophylaxis Status: Acute Plan: Heparin 5,000 units SQ q8hr. SCDs. <Bina Steel - 01/01/18 12:05> - Assessment and Plan 52-year-old male presenting to the emergency department 6 hours after feeling his right leg and right arm feel heavy, as well as right lower extremity weakness and inability to walk. CT head with not acute bleed, CTA head showing atherosclerotic disease without stenosis, and CTA neck with patent carotid arteries bilaterally. <Bina Steel - 01/01/18 12:12> - Attending Attestation Pt. examined independently by me and case discussed with resident physicians. I have read the above note and agree with the assessment and plan as discussed with me. I was involved in all medical decision making for this patient. Lexx Robles MD <Lexx Robles 01/01/18 21:58> <Bina Steel N - Last Filed: 01/01/18 12:05> (1) Stroke Qualifiers: Laterality of affected vessel: left (2) Hypertension Qualifiers: Hypertension type: essential hypertension Qualified Code(s): I10 - Essential (primary) hypertension (4) Diabetes mellitus Qualifiers: Diabetes mellitus type: type 2 Diabetes mellitus complication status: with unspecified complications <Lexx Robles - Last Filed: 01/01/18 21:58> (1) Stroke Qualifiers: Laterality of affected vessel: left (2) Hypertension Qualifiers: Hypertension type: essential hypertension Qualified Code(s): I10 - Essential (primary) hypertension (4) Diabetes mellitus Qualifiers: Diabetes mellitus type: type 2 Diabetes mellitus complication status: with unspecified complications <Bina Steel N - Last Filed: 01/01/18 12:05> (1) Stroke Qualifiers: Laterality of affected vessel: left (2) Hypertension Qualifiers: Hypertension type: essential hypertension Qualified Code(s): I10 - Essential (primary) hypertension (4) Diabetes mellitus Qualifiers: Diabetes mellitus type: type 2 Diabetes mellitus complication status: with unspecified complications <Lexx Robles - Last Filed: 01/01/18 21:58> (1) Stroke Qualifiers: Laterality of affected vessel: left (2) Hypertension Qualifiers: Hypertension type: essential hypertension Qualified Code(s): I10 - Essential (primary) hypertension (4) Diabetes mellitus Qualifiers: Diabetes mellitus type: type 2 Diabetes mellitus complication status: with unspecified complications
[2018-01-02] MEDS: Heparin - SQ 10,000 UNITS/ML Vial SQ SCH ×3 (06:54→21:38)
[2018-01-02 06:56] LABS: Anion Gap 9 meq/L (5-15); Blood Urea Nitrogen 17 mg/dL (7-18); Calcium 8.4 mg/dL (8.5-10.1); Carbon Dioxide 25.4 meq/L (21.0-32.0); Chloride 99 meq/L (98-107); Glomerular Filtration Rate Greater Than 89 mL/min (>89); Glucose,Random 115 mg/dL (74-106); Potassium 3.4 meq/L (3.5-5.1); Sodium 133 meq/L (136-145)
[2018-01-02] MEDS: Sod Chloride 0.9% Inj 1,000 ML IV.CONT SCH ×2 (06:56→21:39)
[2018-01-02] MEDS: Insulin NovoLOG Aspart Correctional Sugar Inj SQ SCH ×4 (08:29→21:39)
[2018-01-02] MEDS: hydroCHLOROthiazide 25 MG Tablet PO SCH (08:32)
[2018-01-02] MEDS: amLODIPine 10 MG Tablet PO SCH (08:32)
[2018-01-02] MEDS: Aspirin 325 MG Tablet PO SCH (08:32)
[2018-01-02] MEDS: Lisinopril 5 MG Tablet PO SCH (08:32)
[2018-01-02] MEDS: Metoprolol Tartrate 100 MG Tablet PO SCH ×2 (08:32→21:38)
[2018-01-02] MEDS: Senna/Docusate Sodium 8.6/50 MG Tablet PO SCH ×2 (08:33→21:38)
[2018-01-02] MEDS: Potassium Chloride 25 MEQ Effervescent Tablet PO SCH (08:33)
--- NOTE | 2018-01-02 10:16 | P.PNFP ---
Subjective Interval history: Doing well today, no acute changes. <MilviaMattBina N - 01/02/18 10:16> Results - Labs Result diagrams: 01/01/18 06:39 01/02/18 05:19 <Lexx Robles - 01/02/18 16:02> Abnormal lab results 01/01/18 01/01/18 01/02/18 Range/Units 16:43 21:12 05:19 Sodium 133 L (136-145) meq/L Potassium 3.4 L (3.5-5.1) meq/L POC Glucose 140 H 180 H (68-110) mg/dl Random Glucose 115 H (74-106) mg/dL Calcium 8.4 L (8.5-10.1) mg/dL 01/02/18 01/02/18 Range/Units 07:52 12:11 Sodium (136-145) meq/L Potassium (3.5-5.1) meq/L POC Glucose 133 H 143 H (68-110) mg/dl Random Glucose (74-106) mg/dL Calcium (8.5-10.1) mg/dL BMP 01/02/18 05:19 Sodium 133 L Potassium 3.4 L Chloride 99 Carbon Dioxide 25.4 BUN 17 Creatinine 0.78 Calcium 8.4 L <Lexx Robles - 01/02/18 16:02> Abnormal lab results 01/01/18 01/01/18 01/01/18 Range/Units 11:39 16:43 21:12 Sodium (136-145) meq/L Potassium (3.5-5.1) meq/L POC Glucose 154 H 140 H 180 H (68-110) mg/dl Random Glucose (74-106) mg/dL Calcium (8.5-10.1) mg/dL 01/02/18 01/02/18 Range/Units 05:19 07:52 Sodium 133 L (136-145) meq/L Potassium 3.4 L (3.5-5.1) meq/L POC Glucose 133 H (68-110) mg/dl Random Glucose 115 H (74-106) mg/dL Calcium 8.4 L (8.5-10.1) mg/dL BMP 01/02/18 05:19 Sodium 133 L Potassium 3.4 L Chloride 99 Carbon Dioxide 25.4 BUN 17 Creatinine 0.78 Calcium 8.4 L <Bina Steel N - 01/02/18 10:16> Physical Exam Vital signs: Vital Signs 01/01/18 16:00 01/01/18 20:00 01/02/18 00:00 Temperature 98.3 F 98.0 F 98.4 F Pulse Rate 95 H 78 62 Respiratory Rate 20 18 18 Blood Pressure 120/55 L 149/85 H 117/59 L Pulse Oximetry 96 96 95 01/02/18 04:00 01/02/18 08:00 01/02/18 11:55 Temperature 98.1 F 98.7 F 98.2 F Pulse Rate 74 79 63 Respiratory Rate 18 20 20 Blood Pressure 138/86 143/78 H 115/78 Pulse Oximetry 97 97 95 01/02/18 15:48 Temperature 98.6 F Pulse Rate 78 Respiratory Rate 18 Blood Pressure 115/67 Pulse Oximetry 97 Intake & Output 01/01/18 01/02/18 01/02/18 18:59 06:59 18:59 Intake Total 820 / 820 Output Total 1301 / 1301 1200 / 1200 Balance -1301 / -1301 -380 / -380 Intake: IV 620 / 620 NS Inj 1,000 ML @ 70 mls/hr IV. 620 / 620 CONT .[id number] [facility] Rx#:[id number] Oral 200 / 200 Output: Urine 1300 / 1300 1200 / 1200 Stool 1 / Other: # Voids 2 Date of Last Bowel Movement 01/01/18 12/28/17 12/28/17 <Lexx Robles - 01/02/18 16:02> Vital Signs 01/01/18 12:00 01/01/18 16:00 01/01/18 20:00 Temperature 98.5 F 98.3 F 98.0 F Pulse Rate 67 95 H 78 Respiratory Rate 20 20 18 Blood Pressure 135/82 120/55 L 149/85 H Pulse Oximetry 95 96 96 01/02/18 00:00 01/02/18 04:00 01/02/18 08:00 Temperature 98.4 F 98.1 F 98.7 F Pulse Rate 62 74 79 Respiratory Rate 18 18 20 Blood Pressure 117/59 L 138/86 143/78 H Pulse Oximetry 95 97 97 Intake & Output 01/01/18 01/02/18 01/02/18 18:59 06:59 18:59 Intake Total 820 / 820 Output Total 1301 / 1301 1200 / 1200 Balance -1301 / -1301 -380 / -380 Intake: IV 620 / 620 NS Inj 1,000 ML @ 70 mls/hr IV. 620 / 620 CONT .[id number] Rx#:[id number] Oral 200 / 200 Output: Urine 1300 / 1300 1200 / 1200 Stool Other: # Voids 2 Date of Last Bowel Movement 01/01/18 12/28/17 12/28/17 <MilviaMattBina N - 01/02/18 10:16> Narrative: General:Obese male, sitting up in bed in no obvious distress. HEENT: Normocephalic, atraumatic. Extraocular muscles intact. Neuro: No new focal deficits. Able to slightly lift right leg. cannot move or grasp with right arm. CV: Regular rate and rhythm; 2/6 systolic murmur. Lungs: Clear to auscultate bilaterally, nonlabored breathing on room air. Abdomen: Positive bowel sound. Obese but soft, nontender. Anterior abdominal wall hernia without tenderness, discoloration, or tenderness. MSK: stasis dermatitis in lower extremities bilaterally. <StephanyyusufBina Darek - 01/02/18 10:16> Assessment and Plan - Assessment (1) Stroke Code(s): I63.9 - Cerebral infarction, unspecified Status: Acute (2) Hypertension Code(s): I10 - Essential (primary) hypertension Status: Chronic (3) Hyperlipidemia Code(s): E78.5 - Hyperlipidemia, unspecified Status: Chronic (4) Diabetes mellitus Code(s): E11.9 - Type 2 diabetes mellitus without complications Status: Acute (5) Hx of completed stroke Code(s): Z86.73 - Personal history of transient ischemic attack (TIA), and cerebral infarction without residual deficits Status: Chronic (6) Obesities, morbid Code(s): E66.01 - Morbid (severe) obesity due to excess calories Status: Acute (7) Nutrition, metabolism, and development symptoms Code(s): R63.8 - Other symptoms and signs concerning food and fluid intake Status: Acute (8) DVT prophylaxis Status: Acute <Lexx Robles - 01/02/18 16:02> (1) Stroke Code(s): I63.9 - Cerebral infarction, unspecified Status: Acute Plan: Brain MRI: Large area of acute infarction left posterior parietal lobe extending into the periventricular regions without hemorrhage or mass-effect. Continued neuro checks. Aspirin 325 mg daily. Prevastatin 40mg PO HS. Cardio and Nuero following. No plans for further anticoagulation at this time. PT/OT recommend therapy while inpatient and at rehab. CM involved to assist with placement to SNF today (2) Hypertension Code(s): I10 - Essential (primary) hypertension Status: Chronic Plan: At home, takes meds amlodipine 10 mg daily and metoprolol 50 mg twice daily. HCTZ 25mg daily metoprolol 100 mg daily Add lisinopril 5 mg daily Vasotec 1.25mg IV q6hr PRN BP >170/100. Monitor (3) Hyperlipidemia Code(s): E78.5 - Hyperlipidemia, unspecified Status: Chronic Plan: Lipid panel: total cholesterol 145, LDL 88, HDL 30, triglycerides 133. Patient continue high intensity statin treatment as above. (4) Diabetes mellitus Code(s): E11.9 - Type 2 diabetes mellitus without complications Status: Acute Plan: Patient with history of diabetes. Hgb A1C 8.6. Monitor blood sugars. Controlled on low insulin sliding scale per protocol. Holding home metformin. (5) Hx of completed stroke Code(s): Z86.73 - Personal history of transient ischemic attack (TIA), and cerebral infarction without residual deficits Status: Chronic Plan: See management for acute stroke. (6) Obesities, morbid Code(s): E66.01 - Morbid (severe) obesity due to excess calories Status: Acute Plan: Recommend weight loss w/increased physical activity. Will need rehab w/ aggressive PT (7) Nutrition, metabolism, and development symptoms Code(s): R63.8 - Other symptoms and signs concerning food and fluid intake Status: Acute Plan: Fluids: * Tolerating PO. Electrolytes: * Monitor and replete as necessary. Nutrition: * Seen by speech therapy again. Recommend regular solids and thin liquids. (8) DVT prophylaxis Status: Acute Plan: Heparin 5,000 units SQ q8hr. SCDs. <MilviaBina N - 01/02/18 12:03> - Assessment and Plan Disp: DC today to SNF. F/u w/neurology Dr. Fulop in 6 weeks and f/u w/ cardiology 52-year-old male presenting to the emergency department 6 hours after feeling his right leg and right arm feel heavy, as well as right lower extremity weakness and inability to walk. CT head with not acute bleed, CTA head showing atherosclerotic disease without stenosis, and CTA neck with patent carotid arteries bilaterally. <Bina Steel - 01/02/18 12:04> - Attending Attestation Patient case discussed with resident physicians I have independently examined the patient I have read the above note and agree with the assessment and plan as discussed with me I was involved in all medical decision making for this patient Lexx Robles MD <Lexx Robles - 01/02/18 16:02> <Bina Steel N - Last Filed: 01/02/18 12:03> (1) Stroke Qualifiers: Laterality of affected vessel: left (2) Hypertension Qualifiers: Hypertension type: essential hypertension Qualified Code(s): I10 - Essential (primary) hypertension (4) Diabetes mellitus Qualifiers: Diabetes mellitus type: type 2 Diabetes mellitus complication status: with unspecified complications <Lexx Robles - Last Filed: 01/02/18 16:02> (1) Stroke Qualifiers: Laterality of affected vessel: left (2) Hypertension Qualifiers: Hypertension type: essential hypertension Qualified Code(s): I10 - Essential (primary) hypertension (4) Diabetes mellitus Qualifiers: Diabetes mellitus type: type 2 Diabetes mellitus complication status: with unspecified complications <Bina Steel - Last Filed: 01/02/18 12:03> (1) Stroke Qualifiers: Laterality of affected vessel: left (2) Hypertension Qualifiers: Hypertension type: essential hypertension Qualified Code(s): I10 - Essential (primary) hypertension (4) Diabetes mellitus Qualifiers: Diabetes mellitus type: type 2 Diabetes mellitus complication status: with unspecified complications <Lexx Robles - Last Filed: 01/02/18 16:02> (1) Stroke Qualifiers: Laterality of affected vessel: left (2) Hypertension Qualifiers: Hypertension type: essential hypertension Qualified Code(s): I10 - Essential (primary) hypertension (4) Diabetes mellitus Qualifiers: Diabetes mellitus type: type 2 Diabetes mellitus complication status: with unspecified complications
[2018-01-02] MEDS ORDERED: Temazepam 15 MG Capsule PO ONE (20:32)
[2018-01-03] MEDS: Heparin - SQ 10,000 UNITS/ML Vial SQ SCH ×3 (06:06→21:30)
[2018-01-03] MEDS: Insulin NovoLOG Aspart Correctional Sugar Inj SQ SCH ×4 (08:34→20:38)
[2018-01-03] MEDS: Lisinopril 5 MG Tablet PO SCH (08:35)
[2018-01-03] MEDS: Aspirin 325 MG Tablet PO SCH (08:35)
[2018-01-03] MEDS: hydroCHLOROthiazide 25 MG Tablet PO SCH (08:35)
[2018-01-03] MEDS: amLODIPine 10 MG Tablet PO SCH (08:35)
[2018-01-03] MEDS: Senna/Docusate Sodium 8.6/50 MG Tablet PO SCH ×2 (08:35→20:38)
[2018-01-03] MEDS: Metoprolol Tartrate 100 MG Tablet PO SCH ×2 (08:35→20:38)
[2018-01-03] MEDS: Potassium Chloride 25 MEQ Effervescent Tablet PO SCH (08:36)
[2018-01-03] MEDS: Sod Chloride 0.9% Inj 1,000 ML IV.CONT SCH ×3 (09:53→10:26)
--- NOTE | 2018-01-03 09:55 | P.PNFP ---
Subjective Interval history: No complaints or changes, doing well. <MilviaMattBina N - 01/03/18 09:55> Results - Labs Result diagrams: 01/01/18 06:39 01/02/18 05:19 <Lexx Robles - 01/03/18 13:49> Abnormal lab results 01/02/18 01/02/18 01/03/18 Range/Units 16:50 20:29 07:49 POC Glucose 131 H 120 H 149 H (68-110) mg/dl 01/03/18 Range/Units 12:15 POC Glucose 139 H (68-110) mg/dl <Lexx Robles - 01/03/18 13:49> Abnormal lab results 01/02/18 01/02/18 01/02/18 Range/Units 12:11 16:50 20:29 POC Glucose 143 H 131 H 120 H (68-110) mg/dl 01/03/18 Range/Units 07:49 POC Glucose 149 H (68-110) mg/dl <MilviaBina N - 01/03/18 09:55> Physical Exam Vital signs: Vital Signs 01/02/18 15:48 01/02/18 20:00 01/03/18 00:00 Temperature 98.6 F 98.3 F 98.5 F Pulse Rate 78 70 65 Respiratory Rate 18 18 18 Blood Pressure 115/67 148/78 H 143/84 H Pulse Oximetry 97 97 98 01/03/18 04:00 01/03/18 08:00 01/03/18 10:05 Temperature 98.1 F 98 F Pulse Rate 70 78 70 Respiratory Rate 18 18 Blood Pressure 118/67 177/93 H Pulse Oximetry 95 97 01/03/18 12:00 Temperature 98 F Pulse Rate 61 Respiratory Rate 18 Blood Pressure 141/87 H Pulse Oximetry 94 L Intake & Output 01/02/18 01/03/18 01/03/18 18:59 06:59 18:59 Intake Total 1320 / 1320 Output Total 950 / 950 800 / 800 375 / 375 Balance 370 / 370 -800 / -800 -375 / -375 Intake: Oral 1320 / 1320 Output: Urine 950 / 950 800 / 800 375 / 375 Other: Date of Last Bowel Movement 12/28/17 12/28/17 # Bowel Movements 0 <Lexx Robles - 01/03/18 13:49> Vital Signs 01/02/18 11:55 01/02/18 15:48 01/02/18 20:00 Temperature 98.2 F 98.6 F 98.3 F Pulse Rate 63 78 70 Respiratory Rate Blood Pressure 115/78 115/67 148/78 H Pulse Oximetry 95 97 97 01/03/18 00:00 01/03/18 04:00 01/03/18 08:00 Temperature 98.5 F 98.1 F 98 F Pulse Rate 65 70 78 Respiratory Rate Blood Pressure 143/84 H 118/67 177/93 H Pulse Oximetry 98 95 97 Intake & Output 01/02/18 01/03/18 01/03/18 18:59 06:59 18:59 Intake Total 1320 / 1320 Output Total 950 / 950 800 / 800 175 / 175 Balance 370 / 370 -800 / -800 -175 / -175 Intake: Oral 1320 / 1320 Output: Urine 950 / 950 800 / 800 175 / 175 Other: Date of Last Bowel Movement 12/28/17 12/28/17 # Bowel Movements 0 <Bina Steel N - 01/03/18 09:55> Narrative: General:Obese male, sitting up in bed in no obvious distress. HEENT: Normocephalic, atraumatic. Extraocular muscles intact. Neuro: No new focal deficits. Able to slightly lift right leg. cannot move or grasp with right arm. CV: Regular rate and rhythm; 2/6 systolic murmur. Lungs: Clear to auscultate bilaterally, nonlabored breathing on room air. Abdomen: Positive bowel sound. Obese but soft, nontender. Anterior abdominal wall hernia without tenderness, discoloration, or tenderness. MSK: stasis dermatitis in lower extremities bilaterally. <Bina Steel N - 01/03/18 09:55> Assessment and Plan - Assessment (1) Stroke Code(s): I63.9 - Cerebral infarction, unspecified Status: Acute (2) Hypertension Code(s): I10 - Essential (primary) hypertension Status: Chronic (3) Hyperlipidemia Code(s): E78.5 - Hyperlipidemia, unspecified Status: Chronic (4) Diabetes mellitus Code(s): E11.9 - Type 2 diabetes mellitus without complications Status: Acute (5) Hx of completed stroke Code(s): Z86.73 - Personal history of transient ischemic attack (TIA), and cerebral infarction without residual deficits Status: Chronic (6) Obesities, morbid Code(s): E66.01 - Morbid (severe) obesity due to excess calories Status: Acute (7) Nutrition, metabolism, and development symptoms Code(s): R63.8 - Other symptoms and signs concerning food and fluid intake Status: Acute (8) DVT prophylaxis Status: Acute <Lexx Robles - 01/03/18 13:49> (1) Stroke Code(s): I63.9 - Cerebral infarction, unspecified Status: Acute Plan: Brain MRI: Large area of acute infarction left posterior parietal lobe extending into the periventricular regions without hemorrhage or mass-effect. Aspirin 325 mg daily. Prevastatin 40mg PO HS. Cardio and Nuero following. No plans for further anticoagulation at this time. PT/OT recommend therapy while inpatient and at rehab. CM working on DC'ing this patient to SNF (2) Hypertension Code(s): I10 - Essential (primary) hypertension Status: Chronic Plan: At home, takes meds amlodipine 10 mg daily and metoprolol 50 mg twice daily. HCTZ 25mg daily metoprolol 100 mg daily Add lisinopril 5 mg daily Vasotec 1.25mg IV q6hr PRN BP >170/100. Monitor (3) Hyperlipidemia Code(s): E78.5 - Hyperlipidemia, unspecified Status: Chronic Plan: Lipid panel: total cholesterol 145, LDL 88, HDL 30, triglycerides 133. Patient continue high intensity statin treatment as above. (4) Diabetes mellitus Code(s): E11.9 - Type 2 diabetes mellitus without complications Status: Acute Plan: Patient with history of diabetes. Hgb A1C 8.6. Monitor blood sugars. Controlled on low insulin sliding scale per protocol. Holding home metformin. (5) Hx of completed stroke Code(s): Z86.73 - Personal history of transient ischemic attack (TIA), and cerebral infarction without residual deficits Status: Chronic Plan: See management for acute stroke. (6) Obesities, morbid Code(s): E66.01 - Morbid (severe) obesity due to excess calories Status: Acute Plan: Recommend weight loss w/increased physical activity. Will need rehab w/ aggressive PT (7) Nutrition, metabolism, and development symptoms Code(s): R63.8 - Other symptoms and signs concerning food and fluid intake Status: Acute Plan: Fluids: * Tolerating PO. Electrolytes: * Monitor and replete as necessary. Nutrition: * Seen by speech therapy again. Recommend regular solids and thin liquids. (8) DVT prophylaxis Status: Acute Plan: Heparin 5,000 units SQ q8hr. SCDs. <Bina Steel - 01/03/18 09:51> - Assessment and Plan Disp: DC to SNF. F/u w/neurology Dr. Corrales in 6 weeks and f/u w/ cardiology 52-year-old male presenting to the emergency department 6 hours after feeling his right leg and right arm feel heavy, as well as right lower extremity weakness and inability to walk. CT head with not acute bleed, CTA head showing atherosclerotic disease without stenosis, and CTA neck with patent carotid arteries bilaterally. <Bina Steel N - 01/03/18 09:55> - Attending Attestation I have evaluated/examined the patient independently of the resident team on my medical rounds Case was discussed with resident physicians I have read the above note and agree with the assessment/plan as discussed with me I was involved in all medical decision making for this patient Lexx Robles MD <Lexx Robles - 01/03/18 13:49> <Bina Steel N - Last Filed: 01/03/18 09:51> (1) Stroke Qualifiers: Laterality of affected vessel: left (2) Hypertension Qualifiers: Hypertension type: essential hypertension Qualified Code(s): I10 - Essential (primary) hypertension (4) Diabetes mellitus Qualifiers: Diabetes mellitus type: type 2 Diabetes mellitus complication status: with unspecified complications <Lexx Robles - Last Filed: 01/03/18 13:49> (1) Stroke Qualifiers: Laterality of affected vessel: left (2) Hypertension Qualifiers: Hypertension type: essential hypertension Qualified Code(s): I10 - Essential (primary) hypertension (4) Diabetes mellitus Qualifiers: Diabetes mellitus type: type 2 Diabetes mellitus complication status: with unspecified complications <Bina Steel - Last Filed: 01/03/18 09:51> (1) Stroke Qualifiers: Laterality of affected vessel: left (2) Hypertension Qualifiers: Hypertension type: essential hypertension Qualified Code(s): I10 - Essential (primary) hypertension (4) Diabetes mellitus Qualifiers: Diabetes mellitus type: type 2 Diabetes mellitus complication status: with unspecified complications <Lexx Robles - Last Filed: 01/03/18 13:49> (1) Stroke Qualifiers: Laterality of affected vessel: left (2) Hypertension Qualifiers: Hypertension type: essential hypertension Qualified Code(s): I10 - Essential (primary) hypertension (4) Diabetes mellitus Qualifiers: Diabetes mellitus type: type 2 Diabetes mellitus complication status: with unspecified complications
[2018-01-04] MEDS: Heparin - SQ 10,000 UNITS/ML Vial SQ SCH ×3 (06:26→21:40)
[2018-01-04] MEDS: hydroCHLOROthiazide 25 MG Tablet PO SCH (08:23)
[2018-01-04] MEDS: Senna/Docusate Sodium 8.6/50 MG Tablet PO SCH ×2 (08:23→21:40)
[2018-01-04] MEDS: Lisinopril 5 MG Tablet PO SCH (08:23)
[2018-01-04] MEDS: Metoprolol Tartrate 100 MG Tablet PO SCH ×2 (08:23→21:40)
[2018-01-04] MEDS: Insulin NovoLOG Aspart Correctional Sugar Inj SQ SCH ×2 (08:23→12:57)
[2018-01-04] MEDS: Aspirin 325 MG Tablet PO SCH (08:23)
[2018-01-04] MEDS: amLODIPine 10 MG Tablet PO SCH (08:23)
[2018-01-04] MEDS: Potassium Chloride 25 MEQ Effervescent Tablet PO SCH (08:23)
--- NOTE | 2018-01-04 14:06 | P.PNFP ---
Results - Labs Result diagrams: 01/01/18 06:39 01/02/18 05:19 Abnormal lab results 01/03/18 01/03/18 Range/Units 16:58 20:04 POC Glucose 128 H 138 H (68-110) mg/dl Physical Exam Vital signs: Vital Signs 01/03/18 16:00 01/03/18 20:00 01/04/18 00:00 Temperature 98.5 F 98 F 97.6 F Pulse Rate 67 74 69 Respiratory Rate 18 18 18 Blood Pressure 120/78 155/57 H 125/66 Pulse Oximetry 95 96 95 01/04/18 04:00 01/04/18 07:48 01/04/18 08:00 Temperature 97.9 F Pulse Rate 67 76 Respiratory Rate 18 Blood Pressure 132/77 Pulse Oximetry 97 01/04/18 08:36 01/04/18 12:00 01/04/18 12:15 Temperature 98.5 F 98.9 F Pulse Rate 78 62 66 Respiratory Rate 18 20 Blood Pressure 169/104 H 119/77 Pulse Oximetry 99 95 Intake & Output 01/03/18 01/04/18 01/04/18 18:59 06:59 18:59 Intake Total 400 / 400 240 / 240 Output Total 990 / 990 950 / 950 Balance -590 / -590 -950 / -950 240 / 240 Weight 156 kg Intake: Oral 400 / 400 240 / 240 Output: Urine 990 / 990 950 / 950 Other: Date of Last Bowel Movement 12/29/17 Assessment and Plan - Assessment (1) Stroke Code(s): I63.9 - Cerebral infarction, unspecified Status: Acute Plan: Brain MRI: Large area of acute infarction left posterior parietal lobe extending into the periventricular regions without hemorrhage or mass-effect. Continue medical management as noted below Aspirin 325 mg daily. Prevastatin 40mg PO HS. Cardio and Nuero following, appreciate recommendations. No plans for further anticoagulation at this time. PT/OT recommend therapy while inpatient and at rehab. CM working on DC'ing this patient to SNF (2) Hypertension Code(s): I10 - Essential (primary) hypertension Status: Chronic Plan: BP in good control At home, takes meds amlodipine 10 mg daily and metoprolol 50 mg twice daily. HCTZ 25mg daily metoprolol 100 mg daily Continue lisinopril 5 mg daily Vasotec 1.25mg IV q6hr PRN BP >170/100. Monitor (3) Hyperlipidemia Code(s): E78.5 - Hyperlipidemia, unspecified Status: Chronic Plan: Lipid panel: total cholesterol 145, LDL 88, HDL 30, triglycerides 133. Patient continue high intensity statin treatment as above. (4) Diabetes mellitus Code(s): E11.9 - Type 2 diabetes mellitus without complications Status: Acute Plan: Patient with history of diabetes. Hgb A1C 8.6. Blood sugars last several days ranging 100-180, mostly in the 120-140 range Discontinue accu-checks and SSI Resume home metformin 500 mg BID (5) Hx of completed stroke Code(s): Z86.73 - Personal history of transient ischemic attack (TIA), and cerebral infarction without residual deficits Status: Chronic Plan: See management for acute stroke. (6) Obesities, morbid Code(s): E66.01 - Morbid (severe) obesity due to excess calories Status: Acute Plan: Recommend weight loss w/increased physical activity. Will need rehab w/ aggressive PT (7) Nutrition, metabolism, and development symptoms Code(s): R63.8 - Other symptoms and signs concerning food and fluid intake Status: Acute Plan: Fluids: * Tolerating PO. Electrolytes: * Monitor and replete as necessary. Nutrition: * Seen by speech therapy again. Recommend regular solids and thin liquids. (8) DVT prophylaxis Status: Acute Plan: Heparin 5,000 units SQ q8hr. SCDs. - Assessment and Plan Discharge Planning: Disp: Medically cleared for DC to SNF. F/u w/neurology Dr. Corrales in 6 weeks and f/u w/ cardiology 52-year-old male presenting to the emergency department 6 hours after feeling his right leg and right arm feel heavy, as well as right lower extremity weakness and inability to walk. CT head with not acute bleed, CTA head showing atherosclerotic disease without stenosis, and CTA neck with patent carotid arteries bilaterally. (1) Stroke Qualifiers: Laterality of affected vessel: left (2) Hypertension Qualifiers: Hypertension type: essential hypertension Qualified Code(s): I10 - Essential (primary) hypertension (4) Diabetes mellitus Qualifiers: Diabetes mellitus type: type 2 Diabetes mellitus complication status: with unspecified complications
[2018-01-05] MEDS: Heparin - SQ 10,000 UNITS/ML Vial SQ SCH ×3 (05:37→23:44)
--- NOTE | 2018-01-05 09:30 | P.PNFP ---
Subjective Interval history: 52 yo male with DM admitted for acute CVA now being seen for follow up. Patient seen and examined this morning. He states he feels well and has no complaints. Denies fever, chills, nausea, vomiting, abdominal pain, chest pain , shortness of breath, or leg pain. No change in weakness or slurred speech. Patient eating breakfast without difficulty swallowing on examination. He continues to participate in PT. <Kaitlin Oviedo - 01/05/18 10:16> Results - Labs Result diagrams: 01/01/18 06:39 01/02/18 05:19 <Lexx Robles - 01/05/18 22:06> Physical Exam Vital signs: Vital Signs 01/05/18 00:00 01/05/18 04:00 01/05/18 07:26 Temperature 98.1 F 98 F Pulse Rate 84 73 Respiratory Rate 18 18 16 Blood Pressure 122/79 121/74 Pulse Oximetry 94 L 93 L 01/05/18 08:00 01/05/18 12:00 01/05/18 16:17 Temperature 97.5 F L 98.5 F 98.9 F Pulse Rate 72 75 68 Respiratory Rate 20 20 20 Blood Pressure 139/80 137/78 114/65 Pulse Oximetry 97 95 95 01/05/18 20:00 Temperature 98.5 F Pulse Rate 69 Respiratory Rate 18 Blood Pressure 118/68 Pulse Oximetry 95 Intake & Output 01/05/18 01/05/18 01/06/18 06:59 18:59 06:59 Output Total 825 / 825 Balance -825 / -825 Weight 156 kg Output: Urine 825 / 825 Other: # Voids 3 Date of Last Bowel Movement 01/05/18 # Bowel Movements 1 <Lexx Robles - 01/05/18 22:06> Vital Signs 01/04/18 12:00 01/04/18 12:15 01/04/18 16:51 Temperature 98.9 F 98.6 F Pulse Rate 62 66 71 Respiratory Rate 20 18 Blood Pressure 119/77 126/80 Pulse Oximetry 95 95 01/04/18 20:00 01/05/18 00:00 01/05/18 04:00 Temperature 98 F 98.1 F 98 F Pulse Rate 105 H 84 73 Respiratory Rate 18 18 18 Blood Pressure 173/94 H 122/79 121/74 Pulse Oximetry 93 L 94 L 93 L 01/05/18 07:26 01/05/18 08:00 Temperature 97.5 F L Pulse Rate 72 Respiratory Rate 16 20 Blood Pressure 139/80 Pulse Oximetry 97 Intake & Output 01/04/18 01/05/18 01/05/18 18:59 06:59 18:59 Intake Total 840 / 840 Output Total 500 / 500 Balance 340 / 340 Weight 156 kg Intake: Oral 840 / 840 Output: Urine 500 / 500 Other: # Voids 3 Date of Last Bowel Movement 01/05/18 # Bowel Movements 1 <Kaitlin Oviedo Micha - 01/05/18 09:30> Narrative: General:Obese male, sitting up in bed in no obvious distress. HEENT: Normocephalic, atraumatic. Extraocular muscles intact. Neuro: No new focal deficits. Able to slightly lift right leg. cannot move or grasp with right arm. CV: Regular rate and rhythm Lungs: Clear to auscultate bilaterally, nonlabored breathing on room air. Abdomen: Positive bowel sound. Obese but soft, nontender. Anterior abdominal wall hernia without tenderness, discoloration, or tenderness. MSK: stasis dermatitis in lower extremities bilaterally. <Kaitlin Oviedo Micha - 01/05/18 10:16> Assessment and Plan - Assessment (1) Stroke Code(s): I63.9 - Cerebral infarction, unspecified Status: Acute (2) Hypertension Code(s): I10 - Essential (primary) hypertension Status: Chronic (3) Hyperlipidemia Code(s): E78.5 - Hyperlipidemia, unspecified Status: Chronic (4) Diabetes mellitus Code(s): E11.9 - Type 2 diabetes mellitus without complications Status: Acute (5) Hx of completed stroke Code(s): Z86.73 - Personal history of transient ischemic attack (TIA), and cerebral infarction without residual deficits Status: Chronic (6) Obesities, morbid Code(s): E66.01 - Morbid (severe) obesity due to excess calories Status: Acute (7) Nutrition, metabolism, and development symptoms Code(s): R63.8 - Other symptoms and signs concerning food and fluid intake Status: Acute (8) DVT prophylaxis Status: Acute <Lexx Robles - 01/05/18 22:06> (1) Stroke Code(s): I63.9 - Cerebral infarction, unspecified Status: Acute Plan: Brain MRI: Large area of acute infarction left posterior parietal lobe extending into the periventricular regions without hemorrhage or mass-effect. Continue medical management as noted below Aspirin 325 mg daily. Prevastatin 40mg PO HS. Cardio and Nuero following, appreciate recommendations. No plans for further anticoagulation at this time. PT/OT recommend therapy while inpatient and at rehab. CM working on DC'ing this patient to SNF (2) Hypertension Code(s): I10 - Essential (primary) hypertension Status: Chronic Plan: BP in good control At home, takes meds amlodipine 10 mg daily and metoprolol 50 mg twice daily. HCTZ 25mg daily metoprolol 100 mg daily Continue lisinopril 5 mg daily Vasotec 1.25mg IV q6hr PRN BP >170/100. Monitor (3) Hyperlipidemia Code(s): E78.5 - Hyperlipidemia, unspecified Status: Chronic Plan: Lipid panel: total cholesterol 145, LDL 88, HDL 30, triglycerides 133. Patient continue high intensity statin treatment as above. (4) Diabetes mellitus Code(s): E11.9 - Type 2 diabetes mellitus without complications Status: Acute Plan: Patient with history of diabetes. Hgb A1C 8.6. Blood sugars last several days ranging 100-180, mostly in the 120-140 range Discontinue accu-checks and SSI Continue home metformin 500 mg BID (5) Hx of completed stroke Code(s): Z86.73 - Personal history of transient ischemic attack (TIA), and cerebral infarction without residual deficits Status: Chronic Plan: See management for acute stroke. (6) Obesities, morbid Code(s): E66.01 - Morbid (severe) obesity due to excess calories Status: Acute Plan: Recommend weight loss w/increased physical activity. Will need rehab w/ aggressive PT (7) Nutrition, metabolism, and development symptoms Code(s): R63.8 - Other symptoms and signs concerning food and fluid intake Status: Acute Plan: Fluids: * Tolerating PO. Electrolytes: * Monitor and replete as necessary. Nutrition: * Seen by speech therapy again. Recommend regular solids and thin liquids. (8) DVT prophylaxis Status: Acute Plan: Heparin 5,000 units SQ q8hr. SCDs. <Kaitlin Oviedo - 01/05/18 10:12> - Assessment and Plan Disp: DC to SNF. F/u w/neurology Dr. Corrales in 6 weeks and f/u w/ cardiology 52-year-old male presenting to the emergency department 6 hours after feeling his right leg and right arm feel heavy, as well as right lower extremity weakness and inability to walk. CT head with not acute bleed, CTA head showing atherosclerotic disease without stenosis, and CTA neck with patent carotid arteries bilaterally. <Kaitlin Oviedo - 01/05/18 10:16> Discharge Planning: Spoke with CM who state that patient has been accepted medically at [facility], however, now awaiting insurance approval for placement this SNF. CM stated that it could take up to 14 days for insurance approval on 12/31. <Kaitlin Oviedo - 01/05/18 10:16> - Attending Attestation e discussed with resident physicians. I have read the above note and agree with the assessment and plan as discussed with me. I was involved in all medical decision making for this patient. Lexx Robles MD <Lexx Robles - 01/05/18 22:06> <Kaitlin Oviedo - Last Filed: 01/05/18 10:12> (1) Stroke Qualifiers: Laterality of affected vessel: left (2) Hypertension Qualifiers: Hypertension type: essential hypertension Qualified Code(s): I10 - Essential (primary) hypertension (4) Diabetes mellitus Qualifiers: Diabetes mellitus type: type 2 Diabetes mellitus complication status: with unspecified complications <Lexx Robles - Last Filed: 01/05/18 22:06> (1) Stroke Qualifiers: Laterality of affected vessel: left (2) Hypertension Qualifiers: Hypertension type: essential hypertension Qualified Code(s): I10 - Essential (primary) hypertension (4) Diabetes mellitus Qualifiers: Diabetes mellitus type: type 2 Diabetes mellitus complication status: with unspecified complications <Kaitlin Oviedo - Last Filed: 01/05/18 10:12> (1) Stroke Qualifiers: Laterality of affected vessel: left (2) Hypertension Qualifiers: Hypertension type: essential hypertension Qualified Code(s): I10 - Essential (primary) hypertension (4) Diabetes mellitus Qualifiers: Diabetes mellitus type: type 2 Diabetes mellitus complication status: with unspecified complications <Lexx Robles - Last Filed: 01/05/18 22:06> (1) Stroke Qualifiers: Laterality of affected vessel: left (2) Hypertension Qualifiers: Hypertension type: essential hypertension Qualified Code(s): I10 - Essential (primary) hypertension (4) Diabetes mellitus Qualifiers: Diabetes mellitus type: type 2 Diabetes mellitus complication status: with unspecified complications
[2018-01-05] MEDS: hydroCHLOROthiazide 25 MG Tablet PO SCH (09:50)
[2018-01-05] MEDS: Metoprolol Tartrate 100 MG Tablet PO SCH ×2 (09:50→23:44)
[2018-01-05] MEDS: Aspirin 325 MG Tablet PO SCH (09:50)
[2018-01-05] MEDS: Lisinopril 5 MG Tablet PO SCH (09:50)
[2018-01-05] MEDS: amLODIPine 10 MG Tablet PO SCH (09:51)
[2018-01-05] MEDS: Potassium Chloride 25 MEQ Effervescent Tablet PO SCH (09:51)
[2018-01-05] MEDS: Senna/Docusate Sodium 8.6/50 MG Tablet PO SCH ×2 (09:51→23:44)
[2018-01-06] MEDS: Heparin - SQ 10,000 UNITS/ML Vial SQ SCH ×3 (05:59→21:00)
--- NOTE | 2018-01-06 09:02 | P.PNFP ---
Subjective Interval history: Patient seen and examined. He has no complaints at this time. Denies fever, chills, chest pain, shortness of breath, leg swelling or pain. He continues to receive PT while in the hospital and states that he feels like he has made some slow progress. <Kaitlin Oviedo - 01/06/18 09:02> Results - Labs Result diagrams: 01/01/18 06:39 01/02/18 05:19 <Lexx Robles - 01/06/18 19:55> Physical Exam Vital signs: Vital Signs 01/05/18 20:00 01/06/18 00:00 01/06/18 04:00 Temperature 98.5 F 98.6 F 98.7 F Pulse Rate 69 77 80 Respiratory Rate 18 18 18 Blood Pressure 118/68 115/69 120/70 Pulse Oximetry 95 95 96 01/06/18 08:00 01/06/18 12:00 Temperature 98.5 F 98.4 F Pulse Rate 63 76 Respiratory Rate 20 20 Blood Pressure 115/70 140/71 Pulse Oximetry 94 L 93 L Intake & Output 01/06/18 01/06/18 01/07/18 06:59 18:59 06:59 Intake Total 360 / 360 Output Total 1100 / 1100 650 / 650 Balance -1100 / -1100 -290 / -290 Intake: Oral 360 / 360 Output: Urine 1100 / 1100 650 / 650 Other: Date of Last Bowel Movement 01/05/18 <Lexx Robles - 01/06/18 19:55> Vital Signs 01/05/18 12:00 01/05/18 16:17 01/05/18 20:00 Temperature 98.5 F 98.9 F 98.5 F Pulse Rate 75 68 69 Respiratory Rate 20 20 18 Blood Pressure 137/78 114/65 118/68 Pulse Oximetry 95 95 95 01/06/18 00:00 01/06/18 04:00 Temperature 98.6 F 98.7 F Pulse Rate 77 80 Respiratory Rate 18 18 Blood Pressure 115/69 120/70 Pulse Oximetry 95 96 Intake & Output 01/05/18 01/06/18 01/06/18 18:59 06:59 18:59 Output Total 825 / 825 1100 / 1100 Balance -825 / -825 -1100 / -1100 Output: Urine 825 / 825 1100 / 1100 <Kaitlin Oviedo - 01/06/18 09:02> Narrative: General:Obese male, sitting up in bed in no obvious distress. HEENT: Normocephalic, atraumatic. Extraocular muscles intact. Neuro: No new focal deficits. Able to slightly lift right leg. cannot move or grasp with right arm. CV: Regular rate and rhythm Lungs: Clear to auscultate bilaterally, nonlabored breathing on room air. Abdomen: Positive bowel sound. Obese but soft, nontender. Anterior abdominal wall hernia without tenderness, discoloration, or tenderness. MSK: stasis dermatitis in lower extremities bilaterally. <Mary Oviedochevy Muse - 01/06/18 09:02> Assessment and Plan - Assessment (1) Stroke Code(s): I63.9 - Cerebral infarction, unspecified Status: Acute (2) Hypertension Code(s): I10 - Essential (primary) hypertension Status: Chronic (3) Hyperlipidemia Code(s): E78.5 - Hyperlipidemia, unspecified Status: Chronic (4) Diabetes mellitus Code(s): E11.9 - Type 2 diabetes mellitus without complications Status: Acute (5) Hx of completed stroke Code(s): Z86.73 - Personal history of transient ischemic attack (TIA), and cerebral infarction without residual deficits Status: Chronic (6) Obesities, morbid Code(s): E66.01 - Morbid (severe) obesity due to excess calories Status: Acute (7) Nutrition, metabolism, and development symptoms Code(s): R63.8 - Other symptoms and signs concerning food and fluid intake Status: Acute (8) DVT prophylaxis Status: Acute <Lexx Robles - 01/06/18 19:55> (1) Stroke Code(s): I63.9 - Cerebral infarction, unspecified Status: Acute Plan: Brain MRI: Large area of acute infarction left posterior parietal lobe extending into the periventricular regions without hemorrhage or mass-effect. Continue medical management as noted below Aspirin 325 mg daily. Prevastatin 40mg PO HS. Cardio and Nuero following, appreciate recommendations. No plans for further anticoagulation at this time. PT/OT recommend therapy while inpatient and at rehab. CM working on DC'ing this patient to SNF (2) Hypertension Code(s): I10 - Essential (primary) hypertension Status: Chronic Plan: BP in good control At home, takes meds amlodipine 10 mg daily and metoprolol 50 mg twice daily. HCTZ 25mg daily metoprolol 100 mg daily Continue lisinopril 5 mg daily Vasotec 1.25mg IV q6hr PRN BP >170/100. Monitor (3) Hyperlipidemia Code(s): E78.5 - Hyperlipidemia, unspecified Status: Chronic Plan: Lipid panel: total cholesterol 145, LDL 88, HDL 30, triglycerides 133. Patient continue high intensity statin treatment as above. (4) Diabetes mellitus Code(s): E11.9 - Type 2 diabetes mellitus without complications Status: Acute Plan: Patient with history of diabetes. Hgb A1C 8.6. Blood sugars last several days ranging 100-180, mostly in the 120-140 range Discontinue accu-checks and SSI Continue home metformin 500 mg BID (5) Hx of completed stroke Code(s): Z86.73 - Personal history of transient ischemic attack (TIA), and cerebral infarction without residual deficits Status: Chronic Plan: See management for acute stroke. (6) Obesities, morbid Code(s): E66.01 - Morbid (severe) obesity due to excess calories Status: Acute Plan: Recommend weight loss w/increased physical activity. Will need rehab w/ aggressive PT (7) Nutrition, metabolism, and development symptoms Code(s): R63.8 - Other symptoms and signs concerning food and fluid intake Status: Acute Plan: Fluids: * Tolerating PO. Electrolytes: * Monitor and replete as necessary. Nutrition: * Seen by speech therapy again. Recommend regular solids and thin liquids. (8) DVT prophylaxis Status: Acute Plan: Heparin 5,000 units SQ q8hr. SCDs. <Kaitlin Oviedo 01/06/18 15:22> - Assessment and Plan Disp: DC to SNF. F/u w/neurology Dr. Corrales in 6 weeks and f/u w/ cardiology 52-year-old male presenting to the emergency department 6 hours after feeling his right leg and right arm feel heavy, as well as right lower extremity weakness and inability to walk. CT head with not acute bleed, CTA head showing atherosclerotic disease without stenosis, and CTA neck with patent carotid arteries bilaterally. <Kaitlin Oviedo 01/06/18 09:02> Discharge Planning: Spoke with CM who state that patient has been accepted medically at [facility], however, now awaiting insurance approval for placement this SNF. CM stated that it could take up to 14 days for insurance approval on 12/31. <Kaitlin Oviedo - 01/06/18 09:02> - Attending Attestation Pt. examined and case discussed with resident physicians. I have read the above note and agree with the assessment and plan as discussed with me. I was involved in all medical decision making for this patient. Lexx Robles MD <Lexx Robles - 01/06/18 19:55> <Kaitlin Oviedo - Last Filed: 01/06/18 15:22> (1) Stroke Qualifiers: Laterality of affected vessel: left (2) Hypertension Qualifiers: Hypertension type: essential hypertension Qualified Code(s): I10 - Essential (primary) hypertension (4) Diabetes mellitus Qualifiers: Diabetes mellitus type: type 2 Diabetes mellitus complication status: with unspecified complications <Lexx Robles - Last Filed: 01/06/18 19:55> (1) Stroke Qualifiers: Laterality of affected vessel: left (2) Hypertension Qualifiers: Hypertension type: essential hypertension Qualified Code(s): I10 - Essential (primary) hypertension (4) Diabetes mellitus Qualifiers: Diabetes mellitus type: type 2 Diabetes mellitus complication status: with unspecified complications <EmilianakenyonKaitlin Muse - Last Filed: 01/06/18 15:22> (1) Stroke Qualifiers: Laterality of affected vessel: left (2) Hypertension Qualifiers: Hypertension type: essential hypertension Qualified Code(s): I10 - Essential (primary) hypertension (4) Diabetes mellitus Qualifiers: Diabetes mellitus type: type 2 Diabetes mellitus complication status: with unspecified complications <Lexx Robles - Last Filed: 01/06/18 19:55> (1) Stroke Qualifiers: Laterality of affected vessel: left (2) Hypertension Qualifiers: Hypertension type: essential hypertension Qualified Code(s): I10 - Essential (primary) hypertension (4) Diabetes mellitus Qualifiers: Diabetes mellitus type: type 2 Diabetes mellitus complication status: with unspecified complications
[2018-01-06] MEDS: amLODIPine 10 MG Tablet PO SCH (09:55)
[2018-01-06] MEDS: Metoprolol Tartrate 100 MG Tablet PO SCH ×2 (09:55→20:58)
[2018-01-06] MEDS: hydroCHLOROthiazide 25 MG Tablet PO SCH (09:55)
[2018-01-06] MEDS: Aspirin 325 MG Tablet PO SCH (09:55)
[2018-01-06] MEDS: Potassium Chloride 25 MEQ Effervescent Tablet PO SCH (09:56)
[2018-01-06] MEDS: Lisinopril 5 MG Tablet PO SCH (09:56)
[2018-01-06] MEDS: Senna/Docusate Sodium 8.6/50 MG Tablet PO SCH ×2 (09:57→20:58)
[2018-01-07] MEDS: Heparin - SQ 10,000 UNITS/ML Vial SQ SCH ×3 (06:18→22:11)
[2018-01-07] MEDS: Lisinopril 5 MG Tablet PO SCH (09:01)
[2018-01-07] MEDS: Aspirin 325 MG Tablet PO SCH (09:01)
[2018-01-07] MEDS: Metoprolol Tartrate 100 MG Tablet PO SCH ×2 (09:02→22:11)
[2018-01-07] MEDS: amLODIPine 10 MG Tablet PO SCH (09:02)
[2018-01-07] MEDS: hydroCHLOROthiazide 25 MG Tablet PO SCH (09:02)
[2018-01-07] MEDS: Senna/Docusate Sodium 8.6/50 MG Tablet PO SCH ×2 (09:03→22:12)
[2018-01-07] MEDS: Potassium Chloride 25 MEQ Effervescent Tablet PO SCH (09:03)
--- NOTE | 2018-01-07 11:00 | P.PNFP ---
Subjective Interval history: Patient seen and examined this morning. Patient has no complaints at this time. Denies headache, lightheadedness, nausea, vomiting, shortness of breath, chest pain or leg pain. Patient has been working with PT daily. <PreetKaitlin - 01/07/18 13:55> Results - Labs Result diagrams: 01/01/18 06:39 01/02/18 05:19 <TravisLexx - 01/07/18 15:37> Physical Exam Vital signs: Vital Signs 01/06/18 20:00 01/07/18 00:00 01/07/18 04:00 Temperature 97.6 F 97.7 F 97.6 F Pulse Rate 61 63 64 Respiratory Rate 18 18 18 Blood Pressure 133/74 141/80 H 140/90 Pulse Oximetry 97 98 96 01/07/18 08:00 01/07/18 12:00 Temperature 98.1 F 97.9 F Pulse Rate 70 59 L Respiratory Rate 19 19 Blood Pressure 153/84 H 120/70 Pulse Oximetry 94 L 94 L Intake & Output 01/06/18 01/07/18 01/07/18 18:59 06:59 18:59 Intake Total 360 / 360 Output Total 650 / 650 1250 / 1250 Balance -290 / -290 -1250 / -1250 Intake: Oral 360 / 360 Output: Urine 650 / 650 1250 / 1250 Other: Date of Last Bowel Movement 01/05/18 01/05/18 01/05/18 # Bowel Movements 1 <TravisLexx - 01/07/18 15:37> Vital Signs 01/06/18 12:00 01/06/18 20:00 01/07/18 00:00 Temperature 98.4 F 97.6 F 97.7 F Pulse Rate 76 61 63 Respiratory Rate 20 18 18 Blood Pressure 140/71 133/74 141/80 H Pulse Oximetry 93 L 97 98 01/07/18 04:00 01/07/18 08:00 Temperature 97.6 F 98.1 F Pulse Rate 64 70 Respiratory Rate 18 19 Blood Pressure 140/90 153/84 H Pulse Oximetry 96 94 L Intake & Output 01/06/18 01/07/18 01/07/18 18:59 06:59 18:59 Intake Total 360 / 360 Output Total 650 / 650 1250 / 1250 Balance -290 / -290 -1250 / -1250 Intake: Oral 360 / 360 Output: Urine 650 / 650 1250 / 1250 Other: Date of Last Bowel Movement 01/05/18 01/05/18 01/05/18 <Mary Oviedochevy Muse - 01/07/18 11:00> Narrative: General:Obese male, sitting up in in chair in no obvious distress. HEENT: Normocephalic, atraumatic. Extraocular muscles intact. Neuro: No new focal deficits. Able to slightly lift right leg. cannot move or grasp with right arm. CV: Regular rate and rhythm Lungs: Clear to auscultate bilaterally, nonlabored breathing on room air. Abdomen: Positive bowel sound. Obese but soft, nontender. Anterior abdominal wall hernia without tenderness, discoloration, or tenderness. MSK: stasis dermatitis in lower extremities bilaterally. <Mary Oviedochevy Muse - 01/07/18 13:55> Assessment and Plan - Assessment (1) Stroke Code(s): I63.9 - Cerebral infarction, unspecified Status: Acute (2) Hypertension Code(s): I10 - Essential (primary) hypertension Status: Chronic (3) Hyperlipidemia Code(s): E78.5 - Hyperlipidemia, unspecified Status: Chronic (4) Diabetes mellitus Code(s): E11.9 - Type 2 diabetes mellitus without complications Status: Acute (5) Hx of completed stroke Code(s): Z86.73 - Personal history of transient ischemic attack (TIA), and cerebral infarction without residual deficits Status: Chronic (6) Obesities, morbid Code(s): E66.01 - Morbid (severe) obesity due to excess calories Status: Acute (7) Nutrition, metabolism, and development symptoms Code(s): R63.8 - Other symptoms and signs concerning food and fluid intake Status: Acute (8) DVT prophylaxis Status: Acute <Lexx Robles - 01/07/18 15:37> (1) Stroke Code(s): I63.9 - Cerebral infarction, unspecified Status: Acute Plan: Brain MRI: Large area of acute infarction left posterior parietal lobe extending into the periventricular regions without hemorrhage or mass-effect. Continue medical management as noted below Aspirin 325 mg daily. Prevastatin 40mg PO HS. Cardio and Nuero following, appreciate recommendations. No plans for further anticoagulation at this time. PT/OT recommend therapy while inpatient and at rehab. CM working on DC'ing this patient to SNF. SNF has cleared patient medically, however, awaiting insurance approval, which could take up to 14 days. (2) Hypertension Code(s): I10 - Essential (primary) hypertension Status: Chronic Plan: BP in good control At home, takes meds amlodipine 10 mg daily and metoprolol 50 mg twice daily. HCTZ 25mg daily metoprolol 100 mg daily Continue lisinopril 5 mg daily Vasotec 1.25mg IV q6hr PRN BP >170/100. Monitor (3) Hyperlipidemia Code(s): E78.5 - Hyperlipidemia, unspecified Status: Chronic Plan: Lipid panel: total cholesterol 145, LDL 88, HDL 30, triglycerides 133. Patient continue high intensity statin treatment as above. (4) Diabetes mellitus Code(s): E11.9 - Type 2 diabetes mellitus without complications Status: Acute Plan: Patient with history of diabetes. Hgb A1C 8.6. Blood sugars last several days ranging 100-180, mostly in the 120-140 range Discontinue accu-checks and SSI Continue home metformin 500 mg BID (5) Hx of completed stroke Code(s): Z86.73 - Personal history of transient ischemic attack (TIA), and cerebral infarction without residual deficits Status: Chronic Plan: See management for acute stroke. (6) Obesities, morbid Code(s): E66.01 - Morbid (severe) obesity due to excess calories Status: Acute Plan: Recommend weight loss w/increased physical activity. Will need rehab w/ aggressive PT (7) Nutrition, metabolism, and development symptoms Code(s): R63.8 - Other symptoms and signs concerning food and fluid intake Status: Acute Plan: Fluids: * Tolerating PO. Electrolytes: * Monitor and replete as necessary. Nutrition: * Seen by speech therapy again. Recommend regular solids and thin liquids. (8) DVT prophylaxis Status: Acute Plan: Heparin 5,000 units SQ q8hr. SCDs. <Kaitlin Oviedo - 01/07/18 13:51> - Assessment and Plan Disp: DC to SNF. F/u w/neurology Dr. Corrales in 6 weeks and f/u w/ cardiology 52-year-old male presenting to the emergency department 6 hours after feeling his right leg and right arm feel heavy, as well as right lower extremity weakness and inability to walk. CT head with not acute bleed, CTA head showing atherosclerotic disease without stenosis, and CTA neck with patent carotid arteries bilaterally. <Kaitlin Oviedo - 01/07/18 11:00> Discharge Planning: Spoke with CM who state that patient has been accepted medically at [facility], however, now awaiting insurance approval for placement this SNF. CM stated that it could take up to 14 days for insurance approval on 12/31. <Kaitlin Oviedo - 01/07/18 13:55> <Kaitlin Oviedo - Last Filed: 01/07/18 13:51> (1) Stroke Qualifiers: Laterality of affected vessel: left (2) Hypertension Qualifiers: Hypertension type: essential hypertension Qualified Code(s): I10 - Essential (primary) hypertension (4) Diabetes mellitus Qualifiers: Diabetes mellitus type: type 2 Diabetes mellitus complication status: with unspecified complications <Lexx Robles - Last Filed: 01/07/18 15:37> (1) Stroke Qualifiers: Laterality of affected vessel: left (2) Hypertension Qualifiers: Hypertension type: essential hypertension Qualified Code(s): I10 - Essential (primary) hypertension (4) Diabetes mellitus Qualifiers: Diabetes mellitus type: type 2 Diabetes mellitus complication status: with unspecified complications <Mary Oviedochevy Muse - Last Filed: 01/07/18 13:51> (1) Stroke Qualifiers: Laterality of affected vessel: left (2) Hypertension Qualifiers: Hypertension type: essential hypertension Qualified Code(s): I10 - Essential (primary) hypertension (4) Diabetes mellitus Qualifiers: Diabetes mellitus type: type 2 Diabetes mellitus complication status: with unspecified complications <Lexx Robles - Last Filed: 01/07/18 15:37> (1) Stroke Qualifiers: Laterality of affected vessel: left (2) Hypertension Qualifiers: Hypertension type: essential hypertension Qualified Code(s): I10 - Essential (primary) hypertension (4) Diabetes mellitus Qualifiers: Diabetes mellitus type: type 2 Diabetes mellitus complication status: with unspecified complications
[2018-01-08] MEDS: Heparin - SQ 10,000 UNITS/ML Vial SQ SCH ×2 (06:16→13:15)
[2018-01-08] MEDS: Lisinopril 5 MG Tablet PO SCH (08:30)
[2018-01-08] MEDS: hydroCHLOROthiazide 25 MG Tablet PO SCH (08:32)
[2018-01-08] MEDS: Aspirin 325 MG Tablet PO SCH (08:32)
[2018-01-08] MEDS: Metoprolol Tartrate 100 MG Tablet PO SCH (08:32)
[2018-01-08] MEDS: Potassium Chloride 25 MEQ Effervescent Tablet PO SCH (08:32)
[2018-01-08] MEDS: Senna/Docusate Sodium 8.6/50 MG Tablet PO SCH (08:33)
[2018-01-08] MEDS: amLODIPine 10 MG Tablet PO SCH (08:33)
[2018-01-08 08:55] VITALS: RESP 18
--- NOTE | 2018-01-08 10:49 | P.PNFP ---
Subjective Interval history: No new events to report. <Bina Steel N - 01/08/18 11:19> Results - Labs Result diagrams: 01/01/18 06:39 01/02/18 05:19 <Lexx Robles - 01/08/18 15:29> Physical Exam Vital signs: Vital Signs 01/07/18 16:00 01/07/18 20:00 01/08/18 00:00 Temperature 97.4 F L 98.0 F 97.8 F Pulse Rate 60 67 67 Respiratory Rate 19 18 20 Blood Pressure 110/75 133/78 126/77 Pulse Oximetry 95 95 97 01/08/18 08:00 01/08/18 12:00 Temperature 97.4 F L 97.8 F Pulse Rate 72 68 Respiratory Rate 18 18 Blood Pressure 155/97 H 119/69 Pulse Oximetry 98 97 Intake & Output 01/07/18 01/08/18 01/08/18 18:59 06:59 18:59 Intake Total 240 / 240 Output Total 1150 / 1150 700 / 700 Balance -1150 / -1150 -460 / -460 Weight 156 kg Intake: Oral 240 / 240 Output: Urine 1150 / 1150 700 / 700 Other: Date of Last Bowel Movement 01/07/18 01/07/18 01/05/18 # Bowel Movements 1 <Lexx Robles - 01/08/18 15:29> Vital Signs 01/07/18 12:00 01/07/18 16:00 01/07/18 20:00 Temperature 97.9 F 97.4 F L 98.0 F Pulse Rate 59 L 60 67 Respiratory Rate 19 19 18 Blood Pressure 120/70 110/75 133/78 Pulse Oximetry 94 L 95 95 01/08/18 00:00 01/08/18 08:00 Temperature 97.8 F 97.4 F L Pulse Rate 67 72 Respiratory Rate 20 18 Blood Pressure 126/77 155/97 H Pulse Oximetry 97 98 Intake & Output 01/07/18 01/08/18 01/08/18 18:59 06:59 18:59 Intake Total 240 / 240 Output Total 1150 / 1150 200 / 200 Balance -1150 / -1150 40 / 40 Weight 156 kg Intake: Oral 240 / 240 Output: Urine 1150 / 1150 200 / 200 Other: Date of Last Bowel Movement 1001/07/18 01/05/18 # Bowel Movements 1 <Bina Steel N - 01/08/18 10:49> Narrative: General:Obese male, sitting up in in chair in no obvious distress. HEENT: Normocephalic, atraumatic. Extraocular muscles intact. Neuro: No new focal deficits. CV: Regular rate. Lungs: Nonlabored breathing on room air. Abdomen: Obese. MSK: stasis dermatitis in lower extremities bilaterally. <Bina Steel N - 01/08/18 11:19> Assessment and Plan - Assessment (1) Stroke Code(s): I63.9 - Cerebral infarction, unspecified Status: Acute (2) Hypertension Code(s): I10 - Essential (primary) hypertension Status: Chronic (3) Hyperlipidemia Code(s): E78.5 - Hyperlipidemia, unspecified Status: Chronic (4) Diabetes mellitus Code(s): E11.9 - Type 2 diabetes mellitus without complications Status: Acute (5) Hx of completed stroke Code(s): Z86.73 - Personal history of transient ischemic attack (TIA), and cerebral infarction without residual deficits Status: Chronic (6) Obesities, morbid Code(s): E66.01 - Morbid (severe) obesity due to excess calories Status: Acute (7) Nutrition, metabolism, and development symptoms Code(s): R63.8 - Other symptoms and signs concerning food and fluid intake Status: Acute (8) DVT prophylaxis Status: Acute <Lexx Robles - 01/08/18 15:29> (1) Stroke Code(s): I63.9 - Cerebral infarction, unspecified Status: Acute Plan: Aspirin 325 mg daily. Prevastatin 40mg PO HS. Cardio and Nu[facility] following, appreciate recommendations. No plans for further anticoagulation at this time. PT/OT recommend therapy while inpatient and at rehab. Awaiting placement, see dispo below. (2) Hypertension Code(s): I10 - Essential (primary) hypertension Status: Chronic Plan: At home, takes meds amlodipine 10 mg daily and metoprolol 50 mg twice daily. HCTZ 25mg daily metoprolol 100 mg daily Continue lisinopril 5 mg daily Vasotec 1.25mg IV q6hr PRN BP >170/100. Vitals daily (3) Hyperlipidemia Code(s): E78.5 - Hyperlipidemia, unspecified Status: Chronic Plan: Lipid panel: total cholesterol 145, LDL 88, HDL 30, triglycerides 133. Patient continue high intensity statin treatment as above. (4) Diabetes mellitus Code(s): E11.9 - Type 2 diabetes mellitus without complications Status: Acute Plan: Patient with history of diabetes. Hgb A1C 8.6. Continue home metformin 500 mg BID (5) Hx of completed stroke Code(s): Z86.73 - Personal history of transient ischemic attack (TIA), and cerebral infarction without residual deficits Status: Chronic Plan: See management for acute stroke. (6) Obesities, morbid Code(s): E66.01 - Morbid (severe) obesity due to excess calories Status: Acute Plan: Recommend weight loss w/increased physical activity. Rehab w/aggressive PT (7) Nutrition, metabolism, and development symptoms Code(s): R63.8 - Other symptoms and signs concerning food and fluid intake Status: Acute Plan: Dispo: CM consulted for SNF placement who said they would speak w/[facility] again today to see status of insurance acceptance before D/C. Fluids: * Tolerating PO. Electrolytes: * Monitor and replete as necessary. Nutrition: * regular solids and thin liquids per Speech (8) DVT prophylaxis Status: Acute Plan: Heparin 5,000 units SQ q8hr. SCDs. <Bina Steel N - 01/08/18 11:14> - Assessment and Plan Disp: DC to SNF. F/u w/neurology Dr. Corrales in 6 weeks and f/u w/ cardiology 52-year-old male presenting to the emergency department 6 hours after feeling his right leg and right arm feel heavy, as well as right lower extremity weakness and inability to walk. CT head with not acute bleed, CTA head showing atherosclerotic disease without stenosis, and CTA neck with patent carotid arteries bilaterally. <Bina Steel - 01/08/18 10:49> - Attending Attestation Patient case discussed with resident physicians I have independently examined the patient I have read the above note and agree with the assessment and plan as discussed with me I was involved in all medical decision making for this patient Lexx Robles MD <Lexx Robles - 01/08/18 15:29> <Bina Steel N - Last Filed: 01/08/18 11:14> (1) Stroke Qualifiers: Laterality of affected vessel: left (2) Hypertension Qualifiers: Hypertension type: essential hypertension Qualified Code(s): I10 - Essential (primary) hypertension (4) Diabetes mellitus Qualifiers: Diabetes mellitus type: type 2 Diabetes mellitus complication status: with unspecified complications <Rula Roblesy - Last Filed: 01/08/18 15:29> (1) Stroke Qualifiers: Laterality of affected vessel: left (2) Hypertension Qualifiers: Hypertension type: essential hypertension Qualified Code(s): I10 - Essential (primary) hypertension (4) Diabetes mellitus Qualifiers: Diabetes mellitus type: type 2 Diabetes mellitus complication status: with unspecified complications <Bina Steel N - Last Filed: 01/08/18 11:14> (1) Stroke Qualifiers: Laterality of affected vessel: left (2) Hypertension Qualifiers: Hypertension type: essential hypertension Qualified Code(s): I10 - Essential (primary) hypertension (4) Diabetes mellitus Qualifiers: Diabetes mellitus type: type 2 Diabetes mellitus complication status: with unspecified complications <Travis,[facility] Last Filed: 01/08/18 15:29> (1) Stroke Qualifiers: Laterality of affected vessel: left (2) Hypertension Qualifiers: Hypertension type: essential hypertension Qualified Code(s): I10 - Essential (primary) hypertension (4) Diabetes mellitus Qualifiers: Diabetes mellitus type: type 2 Diabetes mellitus complication status: with unspecified complications
[2018-01-08 13:54] VITALS: BP 119/69; PULSE 68; TEMP 97.8; O2SAT 97
== END 2018-01-08 17:25 ==
LOC: NEPC 15:34 → NEDA 17:03 → N05 18:03
PROVIDERS: ADMIT Family Medicine; ATTEND Family Medicine